=== PATIENT | male | born 1995 | race African-American/Black ===

== ENCOUNTER 2017-09-28 22:15 | Emergency (ER) | payer SELFPAY ==
[2017-09-28] MEDS ORDERED: ALBUTEROL 2.5 MG/3 ML NEB SOL ONE (22:43)
[2017-09-28] MEDS ORDERED: METHYLPREDNISOLONE 125 MG INJ ONE (22:43)
--- NOTE | 2017-09-28 23:41 | ER ---
Nurse's Notes [facility] Name: Chito Gibbs Age: 22 yrs Sex: Male : 1995 Arrival Date: 09/28/2017 Time: 22:16 Bed 8 Private MD: Diagnosis: Moderate persistent asthma with (acute) exacerbation Presentation: 09/28 22:20 Presenting complaint: EMS states: toned out for report of asthma attack. Transition of bb care: patient was not received from another setting of care. Onset of symptoms was September 28, 2017. Care prior to arrival: Medication(s) given: Albuterol Neb x 1, Atrovent Neb x 1. 22:20 Method Of Arrival: EMS: [facility] bb 22:20 Acuity: JIGAR 2 bb Historical: - Allergies: 22:21 No Known Allergies; bb - PMHx: 22:21 Asthma; bb - Immunization history:: Adult Immunizations up to date. - Social history:: Smoking status: unknown. Screenin:02 Abuse screen: Denies threats or abuse. Nutritional screening: No deficits noted. ea Tuberculosis screening: No symptoms or risk factors identified. Fall Risk None identified. Assessment: 22:33 General: Appears uncomfortable, Behavior is cooperative. Pain: Denies pain. Neuro: ea Level of Consciousness is awake, alert, obeys commands, Oriented to person, place, time, situation. Cardiovascular: Heart tones present Patient's skin is warm and dry. Respiratory: Airway is patent Respiratory effort is even, labored, Respiratory pattern is regular, symmetrical. Respiratory: Breath sounds with wheezes bilaterally. GI: No signs and/or symptoms were reported involving the gastrointestinal system. Derm: Skin is pink, warm \T\ dry. 23:04 Reassessment: Patient and/or family updated on plan of care and expected duration. Pain ea level reassessed. Patient is alert, oriented x 3, equal unlabored respirations, skin warm/dry/pink. Pt reports he is breathing easier. 23:57 Reassessment: Patient and/or family updated on plan of care and expected duration. Pain ea level reassessed. Patient is alert, oriented x 3, equal unlabored respirations, skin warm/dry/pink. Discharge instructions given to patient, verbalized understanding of instructions. Vital Signs: 22:33 BP 117 / 81; Pulse 60; Resp 22; Temp 98.0(O); Pulse Ox 99% on R/A; Pain 0/10; ea 23:57 BP 120 / 78; Pulse 62; Resp 18 S; Pulse Ox 99% on R/A; ea ED Course: 22:16 Patient arrived in ED. am2 22:20 Triage completed. brigitte 22:21 Luis Antonio Lopez PA is PHCP. jr8 22:21 Russ Almeida MD is Attending Physician. jr8 22:21 Arm band placed on Patient placed in an exam room, on a stretcher, on pulse oximetry. bb 22:30 Inserted saline lock: 20 gauge in right forearm, using aseptic technique. Blood ea collected. 22:32 Dalila Matthew, ELVI is Primary Nurse. ea 22:33 Patient has correct armband on for positive identification. Bed in low position. Call ea light in reach. Side rails up X 1. 23:58 No provider procedures requiring assistance completed. IV discontinued, intact, ea bleeding controlled, No redness/swelling at site. Pressure dressing applied. Administered Medications: 22:32 Drug: Albuterol 2.5 mg Route: Inhalation; ea 22:33 Drug: SOLU-Medrol 125 mg Route: IVP; Site: right forearm; ea 23:06 Follow up: Response: No adverse reaction ea 22:45 Drug: Albuterol 2.5 mg Route: Inhalation; ea 23:06 Drug: Albuterol 2.5 mg Route: Inhalation; ea 23:30 Follow up: Response: Marked relief of symptoms ea Outcome: 23:40 Discharge ordered by . jrDebbie 23:58 Discharged to home ambulatory. ea 23:58 Condition: improved 23:58 Discharge instructions given to patient, Instructed on discharge instructions, follow up and referral plans. medication usage, Demonstrated understanding of instructions, follow-up care, medications, Prescriptions given X 2. 23:59 Patient left the ED. ea Signatures: Lexus Haynes RN RN bb Roszak, Josh, PA PA jr8 Roula Novoa am2 Dalila Matthew RN RN ea
--- NOTE | 2017-09-28 23:41 | EDPHYS ---
Physician Documentation [facility] Name: Chito Gibbs Age: 22 yrs Sex: Male : 1995 Arrival Date: 09/28/2017 Time: 22:16 Bed 8 Private MD: ED Physician Russ Almeida HPI: 09/28 22:28 This 22 yrs old Black Male presents to ER via EMS with complaints of Asthma jr8 Exacerbation. 22:28 The patient presents to the emergency department with wheezing, Current therapy: jr8 albuterol inhaler. Onset: The symptoms/episode began/occurred acutely, today. Modifying factors: The symptoms are alleviated by nothing, the symptoms are aggravated by exertion, talking. Associated signs and symptoms: The patient has no apparent associated signs or symptoms. Severity of symptoms: At their worst the symptoms were moderate in the emergency department the symptoms are unchanged. The patient has experienced similar episodes in the past, a few times. The patient has not recently seen a physician. Patient stated that he has to use is inhaler about 2-3 times per day. History of asthma. On no other medications. Denies recent illness. Was unable to control shortness of breath with inhaler tonight . Historical: - Allergies: 22:21 No Known Allergies; bb - PMHx: 22:21 Asthma; bb - Immunization history:: Adult Immunizations up to date. - Social history:: Smoking status: unknown. ROS: 22:28 Eyes: Negative for injury, pain, redness, and discharge, ENT: Negative for injury, jr8 pain, and discharge, Neck: Negative for injury, pain, and swelling, Cardiovascular: Negative for chest pain, palpitations, and edema, Abdomen/GI: Negative for abdominal pain, nausea, vomiting, diarrhea, and constipation, Back: Negative for injury and pain, MS/Extremity: Negative for injury and deformity, Skin: Negative for injury, rash, and discoloration, Neuro: Negative for headache, weakness, numbness, tingling, and seizure. 22:28 Respiratory: Positive for cough, shortness of breath, wheezing. Exam: 22:28 Eyes: Pupils equal round and reactive to light, extra-ocular motions intact. Lids and jr8 lashes normal. Conjunctiva and sclera are non-icteric and not injected. Cornea within normal limits. Periorbital areas with no swelling, redness, or edema. ENT: Nares patent. No nasal discharge, no septal abnormalities noted. Tympanic membranes are normal and external auditory canals are clear. Oropharynx with no redness, swelling, or masses, exudates, or evidence of obstruction, uvula midline. Mucous membranes moist. Neck: Trachea midline, no thyromegaly or masses palpated, and no cervical lymphadenopathy. Supple, full range of motion without nuchal rigidity, or vertebral point tenderness. No Meningismus. Cardiovascular: Regular rate and rhythm with a normal S1 and S2. No gallops, murmurs, or rubs. Normal PMI, no JVD. No pulse deficits. Abdomen/GI: Soft, non-tender, with normal bowel sounds. No distension or tympany. No guarding or rebound. No evidence of tenderness throughout. Back: No spinal tenderness. No costovertebral tenderness. Full range of motion. Skin: Warm, dry with normal turgor. Normal color with no rashes, no lesions, and no evidence of cellulitis. MS/ Extremity: Pulses equal, no cyanosis. Neurovascular intact. Full, normal range of motion. Neuro: Awake and alert, GCS 15, oriented to person, place, time, and situation. Cranial nerves II-XII grossly intact. Motor strength 5/5 in all extremities. Sensory grossly intact. Cerebellar exam normal. Normal gait. 22:28 Respiratory: mild respiratory distress is noted, Respirations: tachypnea, that is mild, Breath sounds: wheezing: expiratory that is moderate, is heard diffusely. Vital Signs: 22:33 BP 117 / 81; Pulse 60; Resp 22; Temp 98.0(O); Pulse Ox 99% on R/A; Pain 0/10; ea 23:57 BP 120 / 78; Pulse 62; Resp 18 S; Pulse Ox 99% on R/A; ea MDM: 22:21 Patient medically screened. 8 23:40 Data reviewed: vital signs, nurses notes, and as a result, I will discharge patient. jr8 Data interpreted: Pulse oximetry: on room air is 99 %. Interpretation: normal. Counseling: I had a detailed discussion with the patient and/or guardian regarding: the historical points, exam findings, and any diagnostic results supporting the discharge/admit diagnosis, the need for outpatient follow up, a family practitioner, to return to the emergency department if symptoms worsen or persist or if there are any questions or concerns that arise at home. Response to treatment: the patient's symptoms have resolved after treatment. 09/28 22:21 Order name: IV; Complete Time: 22:33 jr8 Administered Medications: 22:32 Drug: Albuterol 2.5 mg Route: Inhalation; ea 22:33 Drug: SOLU-Medrol 125 mg Route: IVP; Site: right forearm; ea 23:06 Follow up: Response: No adverse reaction ea 22:45 Drug: Albuterol 2.5 mg Route: Inhalation; ea 23:06 Drug: Albuterol 2.5 mg Route: Inhalation; ea 23:30 Follow up: Response: Marked relief of symptoms linda Disposition: 09/29 00:20 Co-signature as Attending Physician, Russ Almeida MD. carol Disposition: 09/28/17 23:40 Discharged to Home. Impression: Moderate persistent asthma with (acute) exacerbation. - Condition is Stable. - Discharge Instructions: Asthma, Adult. - Prescriptions for Prednisone 20 mg Oral Tablet - take 1 tablet by ORAL route once daily for 5 days; 5 tablet. Albuterol Sulfate 90 mcg/actuation - inhale 1-2 puff by INHALATION route every 4-6 hours; 1 Inhaler. - Medication Reconciliation Form, Thank You Letter, Antibiotic Education, Prescription Opioid Use form. - Follow up: Private Physician; When: 5 - 6 days; Reason: Recheck today's complaints, Continuance of care, Re-evaluation by your physician. - Problem is new. - Symptoms have improved. Signatures: Russ Almeida MD MD pkl Ballard, Brenda, RN RN bb Roszak, Josh, PA PA jr8 Dalila Matthew RN RN ea
== END 2017-09-28 23:59 | disposition home or self-care (01) ==
LOC: ER 22:15
DX: J45.41 Moderate persistent asthma with (acute) exacerbation (principal)
CPT/HCPCS: 96374; 99284; J2930

== ENCOUNTER 2017-10-14 08:48 | Emergency (ER) | payer SELFPAY ==
[2017-10-14] MEDS ORDERED: MAGNES/ALUMIN/SIMET 30ML UCUP ONE (09:21)
[2017-10-14] MEDS ORDERED: ONDANSETRON 4 MG (ODT) TAB ONE (09:21)
[2017-10-14] MEDS ORDERED: LIDOCAINE VISCOUS 2% SOLN 15 ML UDC ONE (09:21)
[2017-10-14] MEDS ORDERED: DICYCLOMINE HCL 10 MG CAP ONE (09:40)
[2017-10-14 09:43] LABS: Absolute Lymphocytes (CBC) 1.3 K/uL (0.7-4.9); Absolute Monocytes 0.3 K/uL (0.1-1.3); Absolute Neutrophil 3.7 K/uL (1.8-8.0); Basophils % 0.2 % (0-1.3); Eosinophils % 1.3 % (0-4.4); Hematocrit 43.4 % (39.6-49.0); Lymphocytes % 24.6 % (15.3-44.8); MCH 30.6 pg (27.0-35.0); MCV 88.4 fL (80-100); MPV 9.9 fL (7.6-11.3); Monocytes % 5.3 % (3.3-12.3); RBC Red Blood Cell Count 4.91 M/uL (4.33-5.43)
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
[2017-10-14 10:14] LABS: Bicarbonate 33 mEq/L (21-31); Glucose Level 119 mg/dL (65-120); Potassium 3.6 mEq/L (3.6-5.0); Sodium Level 141 mEq/L (135-145)
[2017-10-14 10:17] LABS: ALT/SGPT 73 IU/L (10-60); AST/SGOT 46 IU/L (10-42); Albumin 4.2 g/dL (3.2-5.5); Alkaline Phosphatase 161 IU/L (42-121); BUN Blood Urea Nitrogen 19 mg/dL (6-20); Bilirubin Total 0.9 mg/dL (0.3-1.2); Protein, Total 7.3 g/dL (6.0-8.3)
--- NOTE | 2017-10-14 10:21 | ER ---
Nurse's Notes [facility] Name: Chito Gibbs Age: 22 yrs Sex: Male : 1995 Arrival Date: 10/14/2017 Time: 08:49 Bed 5 Private MD: Diagnosis: Nausea and vomiting;Marylou Calabrese Tear Presentation: 10/14 09:01 Presenting complaint: Patient states: has been vomiting "red and yellow stuff" for a iw week. Transition of care: patient was not received from another setting of care. Onset of symptoms was October 07, 2017. Initial Sepsis Screen: Does the patient meet any 2 criteria? No. Patient's initial sepsis screen is negative. Does the patient have a suspected source of infection? No. Patient initial sepsis screen negative. Care prior to arrival: None. 09:01 Method Of Arrival: Ambulatory iw 09: Acuity: JIGAR 3 iw Historical: - Allergies: 09:03 NKA; iw - Home Meds: 09:02 Albuterol Inhl [Active]; iw - PMHx: 09:02 Asthma; iw - PSHx: 09:03 None; iw - Immunization history:: Adult Immunizations. - Social history:: Smoking status: . Screenin:15 Abuse screen: Denies threats or abuse. Denies injuries from another. Nutritional sg screening: No deficits noted. Tuberculosis screening: No symptoms or risk factors identified. Never had TB. Fall Risk None identified. Assessment: 09:15 General: Appears in no apparent distress. comfortable, slender, well groomed, well sg developed, well nourished, Behavior is calm, cooperative, appropriate for age. Pain: Denies pain. Neuro: No deficits noted. Cardiovascular: Heart tones S1 S2 present Capillary refill is brisk in bilateral fingers Patient's skin is warm and dry. Chest pain is denied. Respiratory: Airway is patent Respiratory effort is even, unlabored, Respiratory pattern is regular, symmetrical, Breath sounds are clear bilaterally. GI: Abdomen is flat, non-distended, Bowel sounds present X 4 quads. Abd is soft and non tender X 4 quads. Reports nausea. : No signs and/or symptoms were reported regarding the genitourinary system. EENT: No signs and/or symptoms were reported regarding the EENT system. Derm: Skin is intact, is healthy with good turgor, Skin is dry, Skin is normal, Skin temperature is warm. Musculoskeletal: No signs and/or symptoms reported regarding the musculoskeletal system. 10:21 Reassessment: Patient appears in no apparent distress at this time. Patient and/or sg family updated on plan of care and expected duration. Pain level reassessed. Patient is alert, oriented x 3, equal unlabored respirations, skin warm/dry/pink. pt requesting OJ at this time, awaiting re evaluation by the provider prior to administering anything PO, pt stated understanding, will continue to monitor. 11:01 Reassessment: Patient appears in no apparent distress at this time. Patient and/or iw family updated on plan of care and expected duration. Pain level reassessed. Vital Signs: 09:03 BP 120 / 76; Pulse 84; Resp 16; Temp 98.2; Pulse Ox 97% on R/A; iw 10:19 BP 118 / 72; Pulse 72; Resp 16; Pulse Ox 98% on R/A; Pain 0/10; sg ED Course: 08:49 Patient arrived in ED. as 08:54 Antelmo Kelly MD is Attending Physician. ps1 09:02 Triage completed. iw 09:03 Arm band placed on. iw 09:14 Patient has correct armband on for positive identification. Placed in gown. Bed in low sg position. Call light in reach. Side rails up X2. Pulse ox on. NIBP on. Head of bed elevated. 09:19 Max Taylor, RN is Primary Nurse. sg 09:22 CMP Sent. ag 09:22 CBC with Diff Sent. ag 09:22 Initial lab(s) drawn, by me, sent to lab. Inserted saline lock: 20 gauge in right ag antecubital area, using aseptic technique. Blood collected. 09:29 Patient moved to radiology via wheelchair. 1 09:29 Abdomen Acute Series XRAY In Process Unspecified. EDMS 11:01 No provider procedures requiring assistance completed. IV discontinued, intact, iw bleeding controlled, No redness/swelling at site. Pressure dressing applied. Administered Medications: 09:20 Drug: Zofran 4 mg Route: PO; sg 11:02 Follow up: Response: No adverse reaction iw 09:20 Drug: GI Cocktail without - (Maalox Suspension 30 ml, Lidocaine Liquid 2 % 15 sg ml) Route: PO; 11:02 Follow up: Response: No adverse reaction iw 09:20 Drug: Bentyl 20 mg Route: PO; 11:01 Follow up: Response: No adverse reaction iw Outcome: 10:21 Discharge ordered by . ps1 11:01 Discharged to home ambulatory. iw 11:01 Condition: good 11:01 Discharge instructions given to patient, Instructed on discharge instructions, follow up and referral plans. medication usage, Demonstrated understanding of instructions, follow-up care, medications, Prescriptions given X 3. 11:02 Patient left the ED. iw Signatures: Dispatcher [employer] EDMax Ortiz, RN RN Catalina Escudero 1 Jessie Hanna Irene, RN RN Elmo, Antelmo Juarez MD MD ps1
--- NOTE | 2017-10-14 10:21 | EDPHYS ---
Physician Documentation [facility] Name: Chito Gibbs Age: 22 yrs Sex: Male : 1995 Arrival Date: 10/14/2017 Time: 08:49 Bed 5 Private MD: ED Physician Antelmo Kelly HPI: 10/14 09:02 This 22 yrs old Black Male presents to ER via Unassigned with complaints of Vomiting. ps1 09:02 The patient presents to the emergency department with nausea, vomiting, that is ps1 intermittent, described as blood streaked. Onset: The symptoms/episode began/occurred 2 week(s) ago. Possible causes: unknown. The symptoms are aggravated by nothing. The symptoms are alleviated by nothing. Associated signs and symptoms: The patient has no apparent associated signs or symptoms. Severity of symptoms: At their worst the symptoms were moderate in the emergency department the symptoms have resolved. The patient has experienced a previous episode. The patient has been recently seen at the [facility] Emergency Department, for similar complaints. hx of asthma, treated with albuterol. . Historical: - Allergies: 09:03 NKA; iw - Home Meds: 09:02 Albuterol Inhl [Active]; iw - PMHx: 09:02 Asthma; iw - PSHx: 09:03 None; iw - Immunization history:: Adult Immunizations. - Social history:: Smoking status: . ROS: 09:02 Constitutional: Negative for fever, chills, and weight loss, Eyes: Negative for injury, ps1 pain, redness, and discharge, Neck: Negative for injury, pain, and swelling, Cardiovascular: Negative for chest pain, palpitations, and edema. 09:02 Back: Negative for injury and pain, MS/Extremity: Negative for injury and deformity, Skin: Negative for injury, rash, and discoloration, Neuro: Negative for headache, weakness, numbness, tingling, and seizure. 09:02 Respiratory: Positive for intermittent asthma exacerbation. . 09:02 Abdomen/GI: Positive for nausea, vomiting. Exam: 09:02 Constitutional: This is a well developed, well nourished patient who is awake, alert, ps1 and in no acute distress. Head/Face: Normocephalic, atraumatic. Eyes: Pupils equal round and reactive to light, extra-ocular motions intact. Lids and lashes normal. Conjunctiva and sclera are non-icteric and not injected. Neck: Trachea midline, no thyromegaly or masses palpated, and no cervical lymphadenopathy. Supple, full range of motion without nuchal rigidity, or vertebral point tenderness. No Meningismus. Chest/axilla: Normal chest wall appearance and motion. Nontender with no deformity. No lesions are appreciated. Cardiovascular: Regular rate and rhythm. No gallops, murmurs, or rubs. Normal PMI, no JVD. No pulse deficits. Respiratory: Lungs have equal breath sounds bilaterally, clear to auscultation and percussion. No rales, rhonchi or wheezes noted. No increased work of breathing, no retractions or nasal flaring. Abdomen/GI: Soft, non-tender, with normal bowel sounds. No distension or tympany. No guarding or rebound. No evidence of tenderness throughout. MS/ Extremity: Pulses equal, no cyanosis. Neurovascular intact. Full, normal range of motion. Neuro: Awake and alert, GCS 15, oriented to person, place, time, and situation. Cranial nerves II-XII grossly intact. Sensory grossly intact. Psych: Awake, alert, with orientation to person, place and time. Behavior, mood, and affect are within normal limits. Vital Signs: 09:03 BP 120 / 76; Pulse 84; Resp 16; Temp 98.2; Pulse Ox 97% on R/A; iw 10:19 BP 118 / 72; Pulse 72; Resp 16; Pulse Ox 98% on R/A; Pain 0/10; sg MDM: 09:02 Data reviewed: vital signs, nurses notes. ps1 09:22 Patient medically screened. ps1 10/14 09:07 Order name: CBC with Diff; Complete Time: 10:13 ps1 10/14 09:07 Order name: CMP; Complete Time: 10:19 ps1 10/14 09:07 Order name: Abdomen Acute Series XRAY; Complete Time: 10:13 ps1 Administered Medications: 09:20 Drug: Zofran 4 mg Route: PO; sg 11:02 Follow up: Response: No adverse reaction iw 09:20 Drug: GI Cocktail without - (Maalox Suspension 30 ml, Lidocaine Liquid 2 % 15 sg ml) Route: PO; 11:02 Follow up: Response: No adverse reaction iw 09:20 Drug: Bentyl 20 mg Route: PO; 11:01 Follow up: Response: No adverse reaction iw Disposition: 10/14/17 10:21 Discharged to Home. Impression: Nausea and vomiting, Marylou Calabrese Tear. - Condition is Stable. - Discharge Instructions: Nausea and Vomiting, [id number]. - Prescriptions for Bentyl 10 mg Oral Capsule - take 1 capsule by ORAL route every 6 hours As needed; 40 capsule. Carafate 1 gram Oral Tablet - take 1 tablet by ORAL route 4 times per day take on an empty stomach, beginning on waking and last dose at bedtime; 100 tablet. Zofran 4 mg Oral Tablet - take 1 tablet by ORAL route every 12 hours As needed; 20 tablet. - Medication Reconciliation Form, Thank You Letter, Antibiotic Education, Prescription Opioid Use form. - Follow up: Private Physician; When: As needed; Reason: Recheck today's complaints, Re-evaluation by your physician. Follow up: Emergency Department; When: As needed; Reason: Worsening of condition. - Problem is an ongoing problem. - Symptoms have improved. Signatures: Dispatcher [employer] Max Lucero, RN Karly Trejo RN ELVI Antelmo Kelly MD MD ps1
== END 2017-10-14 11:02 | disposition home or self-care (01) ==
LOC: ER 08:48
DX: K22.6 Gastro-esophageal laceration-hemorrhage syndrome (principal); J45.909 Unspecified asthma, uncomplicated
CPT/HCPCS: 36415; 74022; 80053; 85025; 99284

== ENCOUNTER 2017-11-11 00:27 | Emergency (ER) | payer SELFPAY ==
[2017-11-11] MEDS ORDERED: IPRATROPIUM BROM 0.5MG/2.5ML ONE (00:39)
[2017-11-11] MEDS ORDERED: ALBUTEROL 2.5 MG/3 ML NEB SOL ONE (00:39)
[2017-11-11] MEDS ORDERED: METHYLPREDNISOLONE 125 MG INJ ONE (00:40)
[2017-11-11] MEDS ORDERED: NA CHLORIDE 0.9% 1,000 ML ONE (00:40)
[2017-11-11 01:11] LABS: Absolute Lymphocytes (CBC) 2.4 K/uL (0.7-4.9); Absolute Monocytes 0.7 K/uL (0.1-1.3); Absolute Neutrophil 4.3 K/uL (1.8-8.0); Basophils % 0.5 % (0-1.3); Eosinophils % 2.2 % (0-4.4); Hematocrit 39.2 % (39.6-49.0); Lymphocytes % 31.9 % (15.3-44.8); MCV 88.9 fL (80-100); Monocytes % 9.5 % (3.3-12.3); RBC Red Blood Cell Count 4.41 M/uL (4.33-5.43)
[2017-11-11 01:41] LABS: Glucose Level 115 mg/dL (65-120)
[2017-11-11 01:42] LABS: BUN Blood Urea Nitrogen 18 mg/dL (6-20)
[2017-11-11 01:43] LABS: Bicarbonate 32 mEq/L (21-31); Sodium Level 138 mEq/L (135-145)
[2017-11-11 01:47] LABS: Potassium 2.7 mEq/L (3.6-5.0)
[2017-11-11] MEDS ORDERED: MAGNESIUM SULFATE 1 gm IVPB 1 GM/100 ML BAG IV ONE (01:57)
[2017-11-11] MEDS ORDERED: POTASSIUM CL SA 10 MEQ TAB PO ONE (01:57)
[2017-11-11] MEDS ORDERED: KCL 20 MEQ/100 mL IVPB 20 MEQ/100 ML BAG IV ONE (01:58)
[2017-11-11] MEDS ORDERED: NA CHLORIDE 0.9% 250 ML ONE (02:05)
--- NOTE | 2017-11-11 04:54 | EDPHYS ---
Physician Documentation [facility] Name: Chito Gibbs Age: 22 yrs Sex: Male : 1995 Arrival Date: 11/11/2017 Time: 00:31 Bed 5 Private MD: ED Physician Bryant Hdz HPI: 11/11 00:42 This 22 yrs old Black Male presents to ER via EMS with complaints of Shortness Of snw Breath. 00:42 The patient has shortness of breath at rest. Onset: The symptoms/episode began/occurred snw suddenly. Duration: The symptoms are continuous. The patient's shortness of breath is aggravated by light activity. Associated signs and symptoms: Pertinent positives: non-productive cough. Severity of symptoms: At their worst the symptoms were moderate in the emergency department the symptoms are unchanged. The patient has experienced similar episodes in the past, shortness of breath, asthma exacerbations twice weekly. The patient has not recently seen a physician. ran out of inhaler. Historical: - Allergies: 00:38 NKA; lp1 - Home Meds: 00:38 Albuterol Inhl [Active]; lp1 - PMHx: 00:38 Asthma; lp1 - PSHx: 00:38 None; lp1 - Immunization history:: Adult Immunizations up to date. - Social history:: Smoking status: Patient/guardian denies using tobacco. ROS: 00:41 Constitutional: Negative for fever, chills, and weight loss, Eyes: Negative for injury, snw pain, redness, and discharge, ENT: Negative for injury, pain, and discharge, Neck: Negative for injury, pain, and swelling, Cardiovascular: Negative for chest pain, palpitations, and edema, Abdomen/GI: Negative for abdominal pain, nausea, vomiting, diarrhea, and constipation, Back: Negative for injury and pain, : Negative for injury, bleeding, discharge, and swelling, MS/Extremity: Negative for injury and deformity, Skin: Negative for injury, rash, and discoloration, Neuro: Negative for headache, weakness, numbness, tingling, and seizure. 00:41 Respiratory: Positive for cough, shortness of breath, at rest. wheezing. Exam: 00:41 Constitutional: This is a well developed, well nourished patient who is awake, alert, snw and in no acute distress. Head/Face: Normocephalic, atraumatic. Eyes: Pupils equal round and reactive to light, extra-ocular motions intact. Lids and lashes normal. Conjunctiva and sclera are non-icteric and not injected. Cornea within normal limits. Periorbital areas with no swelling, redness, or edema. ENT: Nares patent. No nasal discharge, no septal abnormalities noted. Tympanic membranes are normal and external auditory canals are clear. Oropharynx with no redness, swelling, or masses, exudates, or evidence of obstruction, uvula midline. Mucous membranes moist. Neck: Trachea midline, no thyromegaly or masses palpated, and no cervical lymphadenopathy. Supple, full range of motion without nuchal rigidity, or vertebral point tenderness. No Meningismus. Chest/axilla: Normal chest wall appearance and motion. Nontender with no deformity. No lesions are appreciated. Cardiovascular: Regular rate and rhythm with a normal S1 and S2. No gallops, murmurs, or rubs. Normal PMI, no JVD. No pulse deficits. Abdomen/GI: Soft, non-tender, with normal bowel sounds. No distension or tympany. No guarding or rebound. No evidence of tenderness throughout. Back: No spinal tenderness. No costovertebral tenderness. Full range of motion. Skin: Warm, dry with normal turgor. Normal color with no rashes, no lesions, and no evidence of cellulitis. MS/ Extremity: Pulses equal, no cyanosis. Neurovascular intact. Full, normal range of motion. Neuro: Awake and alert, GCS 15, oriented to person, place, time, and situation. Cranial nerves II-XII grossly intact. Motor strength 5/5 in all extremities. Sensory grossly intact. Cerebellar exam normal. Normal gait. 00:41 Respiratory: the patient does not display signs of respiratory distress, Respirations: prolonged exhalation, intercostal retractions, shallow respirations, tachypnea, Breath sounds: wheezing: that is moderate, is heard diffusely. Vital Signs: 00:36 BP 137 / 79; Pulse 75; Resp 18; Temp 97.9(O); Pulse Ox 100% on R/A; Weight 74.84 kg; lp1 Height 5 ft. 7 in. (170.18 cm); Pain 0/10; 01:51 BP 125 / 78; Pulse 72; Resp 20; Pulse Ox 100% on R/A; Pain 0/10; mg2 02:18 BP 114 / 72; Pulse 77; Resp 18; Pulse Ox 99% ; ea 03:03 BP 102 / 70; Pulse 72; Resp 18; Pulse Ox 98% ; Pain 0/10; mg2 04:07 BP 101 / 73; Pulse 62; Resp 18; Pulse Ox 99% ; mg2 05:03 BP 100 / 81; Pulse 53; Resp 18; Pulse Ox 100% on R/A; Pain 0/10; mg2 00:36 Body Mass Index 25.84 (74.84 kg, 170.18 cm) lp1 05:03 patient sleeping mg2 MDM: 00:41 Patient medically screened. snw 04:55 Data reviewed: vital signs, nurses notes. Data interpreted: Pulse oximetry: on room air snw is 99 %. Interpretation: normal. Counseling: I had a detailed discussion with the patient and/or guardian regarding: the historical points, exam findings, and any diagnostic results supporting the discharge/admit diagnosis, lab results, radiology results, the need for outpatient follow up, to return to the emergency department if symptoms worsen or persist or if there are any questions or concerns that arise at home. Special discussion: Based on the history and exam findings, there is no indication for further emergent testing or inpatient evaluation. I discussed with the patient/guardian the need to see the primary care provider for further evaluation of the symptoms. 11/11 00:34 Order name: CBC with Diff; Complete Time: 01:21 snw 11/11 00:34 Order name: Chem 7; Complete Time: 01:49 snw 11/11 00:34 Order name: Chest Pa And Lat (2 Views) XRAY snw 11/11 02:58 Order name: Potassium; Complete Time: 04:53 snw Administered Medications: 00:46 Drug: SOLU-Medrol 125 mg Route: IVP; Site: right antecubital; mg2 01:49 Follow up: Response: No adverse reaction; Other; breathing improved mg2 00:52 Drug: NS 0.9% 1000 ml Route: IV; Rate: 125 ml/hr; Site: right antecubital; mg2 00:53 Drug: Albuterol 2.5 mg Route: Inhalation; mg2 00:53 Drug: AtroVENT Aerosol 0.5 mg Route: Inhalation; mg2 02:18 Drug: Potassium Chloride 20 mEq Route: IV; Rate: calculated rate; Site: right mg2 antecubital; 02:18 Drug: Potassium Chloride 40 mEq Route: PO; mg2 04:06 Follow up: Response: No adverse reaction mg2 02:18 Drug: Magnesium Sulfate 1 grams Route: IVPB; Infused Over: 1 hrs; Site: right mg2 antecubital; 04:59 Drug: Potassium Effervescent Tablet 50 mEq Route: PO; mg2 05:11 Follow up: Response: No adverse reaction; Medication administered at discharge. mg2 Disposition: 11/11/17 04:54 Discharged to Home. Impression: Severe persistent asthma with (acute) exacerbation, Hypokalemia. - Condition is Stable. - Discharge Instructions: Asthma, Adult, Potassium Content of Foods, Asthma, Adult, [id number]. - Prescriptions for Pepcid 20 mg Oral Tablet - take 1 tablet by ORAL route every 12 hours for 5 days; 10 tablet. Prednisone 20 mg Oral Tablet - take 2 tablet by ORAL route once daily for 5 days; 10 tablet. Albuterol Sulfate 90 mcg/actuation - inhale 1-2 puff by INHALATION route every 4-6 hours; 1 Inhaler. - Medication Reconciliation Form, Thank You Letter, Antibiotic Education, Prescription Opioid Use form. - Follow up: Private Physician; When: 2 - 3 days; Reason: Recheck today's complaints, Continuance of care, Re-evaluation by your physician. Follow up: Emergency Department; When: As needed; Reason: Worsening of condition. Addendum: 11/28/2017 07:04 Co-signature as Attending Physician, Bryant Hdz MD I agree with the assessment and t w4 plan of care. Signatures: Dispatcher [employer] EDPA Alem Naidu, KUMAR-C FORDER OPERATOR-Csnw Jyoti English RN RN lp1 Bryant Hdz MD MD tw4 Samuel Franco RN RN mg2 Corrections: (The following items were deleted from the chart) 11/11 05:17 04:54 11/11/2017 04:54 Discharged to Home. Impression: Severe persistent asthma with mg2 (acute) exacerbation; Hypokalemia. Condition is Stable. Discharge Instructions: Asthma, Adult, Potassium Content of Foods, Asthma, Adult, [id number]. Prescriptions for Pepcid 20 mg Oral Tablet - take 1 tablet by ORAL route every 12 hours for 5 days; 10 tablet, Prednisone 20 mg Oral Tablet - take 2 tablet by ORAL route once daily for 5 days; 10 tablet, Albuterol Sulfate 90 mcg/actuation - inhale 1-2 puff by INHALATION route every 4-6 hours; 1 Inhaler. and Forms are Medication Reconciliation Form, Thank You Letter, Antibiotic Education, Prescription Opioid Use. Follow up: Private Physician; When: 2 - 3 days; Reason: Recheck today's complaints, Continuance of care, Re-evaluation by your physician. Follow up: Emergency Department; When: As needed; Reason: Worsening of condition. snw
--- NOTE | 2017-11-11 04:54 | ER ---
Nurse's Notes [facility] Name: Chito Gibbs Age: 22 yrs Sex: Male : 1995 Arrival Date: 11/11/2017 Time: 00:31 Bed 5 Private MD: Diagnosis: Severe persistent asthma with (acute) exacerbation;Hypokalemia Presentation: 11/11 00:34 Presenting complaint: EMS states: Patient was walking home when he became short of lp1 breath, states hx of asthma, ran out of nebulizer treatments yesterday, unsure of medication. Transition of care: patient was not received from another setting of care. Onset of symptoms was November 11, 2017. Initial Sepsis Screen: Does the patient meet any 2 criteria? No. Patient's initial sepsis screen is negative. Does the patient have a suspected source of infection? No. Patient's initial sepsis screen is negative. Care prior to arrival: Medication(s) given: Albuterol Neb x 1, Atrovent Neb x 1. 00:34 Method Of Arrival: EMS: [facility] lp1 00:34 Acuity: JIGAR 3 lp1 Triage Assessment: 00:38 General: Appears in no apparent distress. Behavior is calm. Pain: Denies pain. lp1 Respiratory: Reports shortness of breath Airway is patent Respiratory effort is even, Breath sounds with wheezes Onset: The symptoms/episode began/occurred just prior to arrival, the patient has mild shortness of breath. Historical: - Allergies: 00:38 NKA; lp1 - Home Meds: 00:38 Albuterol Inhl [Active]; lp1 - PMHx: 00:38 Asthma; lp1 - PSHx: 00:38 None; lp1 - Immunization history:: Adult Immunizations up to date. - Social history:: Smoking status: Patient/guardian denies using tobacco. Screenin:38 Abuse screen: Denies threats or abuse. Denies injuries from another. Nutritional lp1 screening: No deficits noted. Tuberculosis screening: No symptoms or risk factors identified. Fall Risk None identified. Assessment: 00:46 General: Appears with mild distress. Behavior is calm, cooperative. Pain: Denies pain. mg2 Neuro: Level of Consciousness is awake, alert, obeys commands, Oriented to person, place, time. Cardiovascular: Capillary refill < 3 seconds Patient's skin is warm and dry. Respiratory: Airway is patent Respiratory effort is even, wheezy Respiratory pattern is regular, symmetrical. GI: No signs and/or symptoms were reported involving the gastrointestinal system. : No signs and/or symptoms were reported regarding the genitourinary system. EENT: No signs and/or symptoms were reported regarding the EENT system. Derm: Skin is intact, Skin is pink, warm \T\ dry. normal. Musculoskeletal: Circulation, motion, and sensation intact. 00:49 Reassessment: patient sent for cxray. mg2 01:50 Reassessment: Patient appears in no apparent distress at this time. Patient and/or mg2 family updated on plan of care and expected duration. Pain level reassessed. Patient is alert, oriented x 3, equal unlabored respirations, skin warm/dry/pink. critical result of K-2.7 mmol relayed to the provider. 02:19 Reassessment: Patient appears in no apparent distress at this time. Patient and/or mg2 family updated on plan of care and expected duration. Pain level reassessed. Patient is alert, oriented x 3, equal unlabored respirations, skin warm/dry/pink. 04:08 Reassessment: Patient appears in no apparent distress at this time. Patient and/or mg2 family updated on plan of care and expected duration. Pain level reassessed. Patient is alert, oriented x 3, equal unlabored respirations, skin warm/dry/pink. Vital Signs: 00:36 BP 137 / 79; Pulse 75; Resp 18; Temp 97.9(O); Pulse Ox 100% on R/A; Weight 74.84 kg; lp1 Height 5 ft. 7 in. (170.18 cm); Pain 0/10; 01:51 BP 125 / 78; Pulse 72; Resp 20; Pulse Ox 100% on R/A; Pain 0/10; mg2 02:18 BP 114 / 72; Pulse 77; Resp 18; Pulse Ox 99% ; ea 03:03 BP 102 / 70; Pulse 72; Resp 18; Pulse Ox 98% ; Pain 0/10; mg2 04:07 BP 101 / 73; Pulse 62; Resp 18; Pulse Ox 99% ; mg2 05:03 BP 100 / 81; Pulse 53; Resp 18; Pulse Ox 100% on R/A; Pain 0/10; mg2 00:36 Body Mass Index 25.84 (74.84 kg, 170.18 cm) lp1 05:03 patient sleeping mg2 ED Course: 00:31 Patient arrived in ED. mg2 00:31 Alem Naidu F[facility]-C [facility]. snw 00:31 Bryant Hdz MD is Attending Physician. snw 00:35 Samuel Franco, ELVI is Primary Nurse. mg2 00:36 Triage completed. lp1 00:36 Arm band placed on left wrist. lp1 00:39 Patient has correct armband on for positive identification. Pulse ox on. NIBP on. lp1 00:48 Inserted saline lock: 20 gauge in right antecubital area, using aseptic technique. mg2 Blood collected. 00:54 Chest Pa And Lat (2 Views) XRAY In Process Unspecified. EDMS 05:17 No provider procedures requiring assistance completed. intact, bleeding controlled, No mg2 redness/swelling at site. Pressure dressing applied. Administered Medications: 00:46 Drug: SOLU-Medrol 125 mg Route: IVP; Site: right antecubital; mg2 01:49 Follow up: Response: No adverse reaction; Other; breathing improved mg2 00:52 Drug: NS 0.9% 1000 ml Route: IV; Rate: 125 ml/hr; Site: right antecubital; mg2 00:53 Drug: Albuterol 2.5 mg Route: Inhalation; mg2 00:53 Drug: AtroVENT Aerosol 0.5 mg Route: Inhalation; mg2 02:18 Drug: Potassium Chloride 20 mEq Route: IV; Rate: calculated rate; Site: right mg2 antecubital; 02:18 Drug: Potassium Chloride 40 mEq Route: PO; mg2 04:06 Follow up: Response: No adverse reaction mg2 02:18 Drug: Magnesium Sulfate 1 grams Route: IVPB; Infused Over: 1 hrs; Site: right mg2 antecubital; 04:59 Drug: Potassium Effervescent Tablet 50 mEq Route: PO; mg2 05:11 Follow up: Response: No adverse reaction; Medication administered at discharge. mg2 Intake: Outcome: 04:54 Discharge ordered by . snw 05:17 Discharged to home ambulatory. mg2 05:17 Condition: stable 05:17 Discharge instructions given to patient, Instructed on discharge instructions, follow up and referral plans. Demonstrated understanding of instructions, follow-up care, medications, Prescriptions given X 3. 05:17 Patient left the ED. mg2 Signatures: Dispatcher [employer] EDMS Alem Naidu, PEOPLESOFT ADMINISTRATOR-C PEOPLESOFT ADMINISTRATOR-Csnw Jyoti English RN RN lp1 Dalila Matthew RN ELVI ea Samuel Franco RN RN mg2 Corrections: (The following items were deleted from the chart) 00:34 00:31 Presenting complaint: EMS states: Shortness of breath began as patient was mg2 walking home, states hx of asthma, ran out of nebulizer treatments yesterday, unsure mg2 05:05 05:03 BP 100 / 81; Pulse 53bpm; Resp 18bpm; Pulse Ox 100% RA; Pain 0/10; mg2 mg2
[2017-11-11] MEDS ORDERED: POTASSIUM 25 MEQ EFFERV TAB ONE (04:56)
--- NOTE | 2017-11-11 07:44 | RAD REPORT ---
EXAM DESCRIPTION: RAD - Chest Pa And Lat (2 Views) - 11/11/2017 12:54 am CLINICAL HISTORY: Shortness of breath, asthma history COMPARISON: October 14September 09 TECHNIQUE: PA and lateral views of the chest were obtained. FINDINGS: The lungs are clear. No peribronchial thickening. Trachea is midline. No air trapping fin dings. Heart size is normal and central vasculature is within normal limits. No pleural effusion or pneumothorax seen. No acute bone finding. There is wedging of a vertebrae near the thoracolumbar james ction that is similar to the comparison. No aortic abnormality. No significant interval changes note d. IMPRESSION: No acute cardiopulmonary process.
== END 2017-11-11 05:17 | disposition home or self-care (01) ==
LOC: ER 00:27
DX: J45.51 Severe persistent asthma with (acute) exacerbation (principal); E87.6 Hypokalemia
CPT/HCPCS: 36415; 71046; 80048; 84132; 85025; 96374; 96375; 99285; J2930; J3475; J7030

== ENCOUNTER 2017-11-14 23:12 | Emergency (ER) | payer SELFPAY ==
[2017-11-15] MEDS ORDERED: IPRATROPIUM BROM 0.5MG/2.5ML ONE (00:01)
[2017-11-15] MEDS ORDERED: predniSONE 20 MG TAB ONE (00:01)
[2017-11-15] MEDS ORDERED: ALBUTEROL 2.5 MG/3 ML NEB SOL ONE (00:01)
[2017-11-15] MEDS ORDERED: AMOX/K CLAV 875 MG TAB ONE (00:02)
--- NOTE | 2017-11-15 00:43 | ER ---
Nurse's Notes [facility] Name: Chito Gibbs Age: 22 yrs Sex: Male : 1995 Arrival Date: 11/14/2017 Time: 23:13 Bed 20 Private MD: Diagnosis: Presentation: 11/14 23:13 Presenting complaint: EMS states: "Patient was walking when started to wheeze. Neb ao treatment with albuterol and Atrovent was given. Patient O2 was 98% before neb was given.". Transition of care: patient was not received from another setting of care. Onset of symptoms is unknown. Initial Sepsis Screen: Does the patient meet any 2 criteria? RR > 20 per min. No. Patient's initial sepsis screen is negative. Does the patient have a suspected source of infection? No. Patient's initial sepsis screen is negative. Care prior to arrival: None. Medication(s) given: Albuterol Neb x 1, Atrovent Neb x 1. 23:13 Method Of Arrival: EMS: [facility] ao 23:13 Acuity: JIGAR 3 ao Historical: - Allergies: 23:18 NKA; ao - Home Meds: 23:18 Albuterol Inhl [Active]; ao - PMHx: 23:18 Asthma; ao - PSHx: 23:18 None; ao - Immunization history:: Adult Immunizations unknown. - Social history:: Smoking status: Patient uses tobacco products, smokes one-half pack cigarettes per day, Patient/guardian denies using alcohol, street drugs. Screenin:13 Abuse screen: Denies threats or abuse. Denies injuries from another. Nutritional bp screening: No deficits noted. Tuberculosis screening: No symptoms or risk factors identified. Fall Risk None identified. Assessment: 23:14 General: Appears in no apparent distress. comfortable, Behavior is calm, cooperative, bp appropriate for age, 22YO BM CALLED EMS WHILE WALKING BETWEEN TOWNS, VS STABLE, SP02 >98 ON RA PRIOR TO TREATMENT. PT MAKING LARYNGEAL NOISES WHILE BREATHING, BUT NO WHEEZING NOTED. Pain: Denies pain. 23:30 Reassessment: NO FURTHER LARYNGEAL NOISES NOTED, VS STABLE ON MONITOR AND ROOM AIR. bp 11/15 00:41 Reassessment: PT ELOPE WITHOUT NOTIFYING STAFF. LAST SEEN IN STABLE CONDITION. bp Vital Signs: 11/14 23:16 BP 110 / 69; Pulse 67; Resp 30 S; Temp 98.2(O); Pulse Ox 98% on R/A; Weight 80.74 kg ao (R); Height 5 ft. 8 in. (172.72 cm) (R); 23:30 BP 106 / 61; Pulse 65; Resp 14; Pulse Ox 97% ; bp 23:16 Body Mass Index 27.06 (80.74 kg, 172.72 cm) ao ED Course: 23:13 Patient arrived in ED. ao 23:13 Sunny Diane, RN is Primary Nurse. bp 23:13 Patient has correct armband on for positive identification. Bed in low position. Call bp light in reach. Side rails up X2. 23:16 Triage completed. ao 23:18 Patient placed in an exam room, on a stretcher, on pulse oximetry, Patient notified of ao wait time. 23:44 Tramaine Watts PA is PHCP. cp 23:44 Tramaine Jeff MD is Attending Physician. cp 11/15 00:42 No provider procedures requiring assistance completed. Patient did not have IV access bp during this emergency room visit. Administered Medications: 00:06 Drug: Albuterol 2.5 mg Route: Inhalation; bp 00:06 Drug: AtroVENT Aerosol 0.5 mg Route: Inhalation; bp 00:06 Drug: predniSONE 50 mg Route: PO; bp 00:06 Follow up: Response: No adverse reaction bp 00:06 Drug: Augmentin 875 mg Route: PO; bp 00:07 Follow up: Response: No adverse reaction bp Outcome: 00:42 Eloped from patient exam room, after seeing physician Time discovered patient gone: October bp 2017 at 00:40 00:42 Condition: stable 00:43 Patient left the ED. bp Signatures: Tramaine Watts PA PA cp Jaylon Rendon RN RN ao Sunny Diane, RN RN bp Corrections: (The following items were deleted from the chart) 11/14 23:16 23:13 Care prior to arrival: None. ao ao
--- NOTE | 2017-11-16 00:43 | EDPHYS ---
Physician Documentation [facility] Name: Chito Gibbs Age: 22 yrs Sex: Male : 1995 Arrival Date: 11/14/2017 Time: 23:13 Bed 20 Private MD: ED Physician Tramaine Jeff HPI: 11/14 23:57 This 22 yrs old Black Male presents to ER via EMS with complaints of Asthma cp Exacerbation. 23:57 The patient presents to the emergency department with wheezing, Current therapy: cp albuterol inhaler, that began walking outside, the patient was reported to have chest tightness. Onset: The symptoms/episode began/occurred today. Associated signs and symptoms: Pertinent positives: drainage from right ear, Pertinent negatives: chest pain, fever, nausea, vomiting. Severity of symptoms: in the emergency department the symptoms are unchanged despite EMS interventions. Historical: - Allergies: 23:18 NKA; ao - Home Meds: 23:18 Albuterol Inhl [Active]; ao - PMHx: 23:18 Asthma; ao - PSHx: 23:18 None; ao - Immunization history:: Adult Immunizations unknown. - Social history:: Smoking status: Patient uses tobacco products, smokes one-half pack cigarettes per day, Patient/guardian denies using alcohol, street drugs. ROS: 11/15 00:05 Constitutional: Negative for body aches, chills, fever, poor PO intake. cp 00:05 Eyes: Negative for injury, pain, redness, and discharge. cp 00:05 ENT: Positive for drainage from ear(s), Negative for ear pain, sinus congestion, sinus pain, sore throat, difficulty swallowing, difficulty handling secretions. 00:05 Neck: Negative for pain with movement, pain at rest, stiffness, swollen nodes. 00:05 Cardiovascular: Negative for chest pain, edema, palpitations. 00:05 Respiratory: Positive for shortness of breath, Negative for cough. 00:05 Abdomen/GI: Negative for abdominal pain, nausea, vomiting, and diarrhea, constipation, black/tarry stool, rectal bleeding. 00:05 : Negative for urinary symptoms. 00:05 Skin: Negative for cellulitis, rash. 00:05 Neuro: Negative for altered mental status, headache, weakness. 00:05 All other systems are negative. Exam: 00:10 Constitutional: The patient appears in no acute distress, alert, awake, cp non-diaphoretic, non-toxic, well developed, well nourished. 00:10 Head/Face: Normocephalic, atraumatic. cp 00:10 Eyes: Periorbital structures: appear normal, Conjunctiva: normal, no exudate, no injection, Lids and lashes: appear normal, bilaterally. 00:10 ENT: External ear(s): are unremarkable, Ear canal(s): are normal, clear, TM's: bulging, on the right, erythema, that is moderate, on the right, Examination of the other ear shows no obvious abnormality, Nose: is normal, Mouth: is normal, Posterior pharynx: is normal, airway is patent, no erythema, no exudate. 00:10 Neck: ROM/movement: is normal, is supple, without pain, no range of motions limitations, no meningismus, no nuchal rigidity, Lymph nodes: no appreciated lymphadenopathy. 00:10 Chest/axilla: Inspection: normal, Palpation: is normal, no crepitus, no tenderness. 00:10 Cardiovascular: Rate: normal, Rhythm: regular, Edema: is not appreciated, JVD: is not appreciated. 00:10 Respiratory: the patient does not display signs of respiratory distress, Respirations: labored breathing, is not present, intercostal retractions, are absent, shallow respirations, are not present, splinting, is not noted, tachypnea, is not appreciated, Breath sounds: bronchial sounds, are not appreciated, stridor, is not appreciated, wheezing: that is mild, is heard in the left posterior lower lobe. 00:10 Abdomen/GI: Exam negative for discomfort, distension, guarding, Inspection: abdomen appears normal. 00:10 Skin: cellulitis, is not appreciated, no rash present. Vital Signs: 11/14 23:16 BP 110 / 69; Pulse 67; Resp 30 S; Temp 98.2(O); Pulse Ox 98% on R/A; Weight 80.74 kg ao (R); Height 5 ft. 8 in. (172.72 cm) (R); 23:30 BP 106 / 61; Pulse 65; Resp 14; Pulse Ox 97% ; bp 23:16 Body Mass Index 27.06 (80.74 kg, 172.72 cm) ao MDM: 23:44 Patient medically screened. cp 05/19 00:15 Differential diagnosis: acute asthma, exercise-induced asthma, reactive airway, URI, cp pneumonia, otitis media, ruptured tympanic membrane. Antibiotic administration: The patient is discharged and will get outpatient antibiotics, Amoxicillin. Administered Medications: 00:06 Drug: Albuterol 2.5 mg Route: Inhalation; bp 00:06 Drug: AtroVENT Aerosol 0.5 mg Route: Inhalation; bp 00:06 Drug: predniSONE 50 mg Route: PO; bp 00:06 Follow up: Response: No adverse reaction bp 00:06 Drug: Augmentin 875 mg Route: PO; bp 00:07 Follow up: Response: No adverse reaction bp Disposition: 11/15/17 00:43 Patient left the facility after being seen by provider. - Patient left due to unknown. Addendum: 11/17/2017 07:47 Co-signature as Attending Physician, Tramaine Jeff MD I agree with the assessment and c shen plan of care. Signatures: Tramaine Jeff MD MD cha Page, Corey, PA PA cp Jaylon Rendon, RN RN Sunny Santos, ELVI RN bp
== END 2017-11-15 00:43 | disposition left against medical advice (07) ==
LOC: ER 23:12
DX: J45.901 Unspecified asthma with (acute) exacerbation (principal); F17.210 Nicotine dependence, cigarettes, uncomplicated
CPT/HCPCS: 99284; J7512

== ENCOUNTER 2017-11-25 22:37 | Emergency (ER) | payer SELFPAY ==
--- NOTE | 2017-11-25 22:55 | ER ---
Nurse's Notes [facility] Name: Chito Gibbs Age: 22 yrs Sex: Male : 1995 Arrival Date: 11/25/2017 Time: 22:46 Bed 16 Private MD: Diagnosis: Mild intermittent asthma with (acute) exacerbation Presentation: 11/25 22:47 Presenting complaint: EMS states: they were toned out for report of pt having shortness bb of breath pt has asthma and was walking when he became short of breath. Transition of care: patient was not received from another setting of care. Onset of symptoms was November 25, 2017. Risk Assessment: Do you want to hurt yourself or someone else? Patient reports no desire to harm self or others. Initial Sepsis Screen: Does the patient meet any 2 criteria? No. Patient's initial sepsis screen is negative. Does the patient have a suspected source of infection? No. Patient's initial sepsis screen is negative. Care prior to arrival: Medication(s) given: Albuterol Neb x 2, Atrovent Neb x 1. 22:47 Method Of Arrival: EMS: [facility] bb 22:47 Acuity: JIGAR 3 bb Triage Assessment: 22:49 General: Appears in no apparent distress. slender, Behavior is calm, cooperative. Pain: bb Denies pain. Neuro: Level of Consciousness is awake, alert, obeys commands, Oriented to person, place, time, situation. Cardiovascular: Heart tones S1 S2 present Capillary refill < 3 seconds Patient's skin is warm and dry. Respiratory: Reports shortness of breath Airway is patent Respiratory effort is even, unlabored, Breath sounds with wheezes bilaterally. Onset: The symptoms/episode began/occurred just prior to arrival, the patient has mild shortness of breath. GI: No signs and/or symptoms were reported involving the gastrointestinal system. Derm: Skin is dry, Skin is normal, Skin temperature is warm. Musculoskeletal: Circulation, motion, and sensation intact. Historical: - Allergies: 22:49 NKA; bb - Home Meds: 22:49 Albuterol Inhl [Active]; bb - PMHx: 22:49 Asthma; bb - PSHx: 22:49 None; bb - Immunization history:: Adult Immunizations up to date. - Social history:: Smoking status: Patient/guardian denies using tobacco, Patient/guardian denies using alcohol, street drugs. - Ebola Screening: : No symptoms or risks identified at this time. Screenin:52 Abuse screen: Denies threats or abuse. Nutritional screening: No deficits noted. bb Tuberculosis screening: No symptoms or risk factors identified. Fall Risk None identified. Assessment: 22:52 Reassessment: No changes from previously documented assessment. see triage assessment. bb Viry NG at bedside for evaluation of pt. 22:54 Cardiovascular: Rhythm is sinus tachycardia. bb 23:06 Reassessment: pt eloped with IV intact, Viry NG notified, Ezio Proctor RN notified. bb Vital Signs: 22:49 BP 121 / 88; Pulse 103; Resp 20 S; Temp 98.4(O); Pulse Ox 97% on R/A; Weight 79.38 kg bb (R); Height 5 ft. 7 in. (170.18 cm) (R); Pain 0/10; 22:49 Body Mass Index 27.41 (79.38 kg, 170.18 cm) bb ED Course: 22:46 Patient arrived in ED. bb 22:46 Lexus Haynes, RN is Primary Nurse. bb 22:48 Triage completed. bb 22:48 Luis Antonio Lopez PA is PHCP. jr8 22:49 Arm band placed on Patient placed in an exam room, on a stretcher, on pulse oximetry. bb 22:52 Bolivar Waters MD is Attending Physician. jr8 22:52 Patient has correct armband on for positive identification. Placed in gown. Bed in low bb position. Call light in reach. Side rails up X 1. Pulse ox on. NIBP on. 22:52 No provider procedures requiring assistance completed. Maintain EMS IV. Dressing bb intact. Site clean \T\ dry. Gauge \T\ site: 20g L AC. 23:50 Patient left without discharge instructions. Attempted to contact several times, pt patient answers phone and does not speak. [place] [employer] notified that patient left with IV and PD will do welfare check. Administered Medications: No medications were administered Outcome: 22:54 Discharge ordered by . jr8 23:42 Patient left the ED. bb Signatures: Sameera Proctor RN RN pt Lexus Haynes RN RN bb Roszak, Luis Antonio, PA PA jr8
--- NOTE | 2017-11-25 22:55 | EDPHYS ---
Physician Documentation [facility] Name: Chito Gibbs Age: 22 yrs Sex: Male : 1995 Arrival Date: 11/25/2017 Time: 22:46 Bed 16 Private MD: ED Physician Bolivar Waters HPI: 11/25 22:52 This 22 yrs old Black Male presents to ER via EMS with complaints of Shortness Of jr8 Breath. 22:52 The patient has shortness of breath while walking. Onset: The symptoms/episode jr8 began/occurred acutely, just prior to arrival, today. Duration: The symptoms are continuous. The patient's shortness of breath is aggravated by walking. Associated signs and symptoms: The patient has no apparent associated signs or symptoms. Severity of symptoms: At their worst the symptoms were moderate in the emergency department the symptoms have resolved. The patient has experienced similar episodes in the past, a few times. The patient has not recently seen a physician. Patient brought in by EMS after calling for asthma attack. Was administered breathing treatment and brought to hospital. Patient stated that it now has resolved after treatment and wants to go home . Historical: - Allergies: 22:49 NKA; bb - Home Meds: 22:49 Albuterol Inhl [Active]; bb - PMHx: 22:49 Asthma; bb - PSHx: 22:49 None; bb - Immunization history:: Adult Immunizations up to date. - Social history:: Smoking status: Patient/guardian denies using tobacco, Patient/guardian denies using alcohol, street drugs. - Ebola Screening: : No symptoms or risks identified at this time. ROS: 22:52 Eyes: Negative for injury, pain, redness, and discharge, ENT: Negative for injury, jr8 pain, and discharge, Neck: Negative for injury, pain, and swelling, Cardiovascular: Negative for chest pain, palpitations, and edema, Abdomen/GI: Negative for abdominal pain, nausea, vomiting, diarrhea, and constipation, Back: Negative for injury and pain, MS/Extremity: Negative for injury and deformity, Skin: Negative for injury, rash, and discoloration, Neuro: Negative for headache, weakness, numbness, tingling, and seizure. 22:52 Respiratory: Positive for shortness of breath, wheezing, Negative for cough, hemoptysis, orthopnea, pleurisy. Exam: 22:52 Eyes: Pupils equal round and reactive to light, extra-ocular motions intact. Lids and jr8 lashes normal. Conjunctiva and sclera are non-icteric and not injected. Cornea within normal limits. Periorbital areas with no swelling, redness, or edema. ENT: Nares patent. No nasal discharge, no septal abnormalities noted. Tympanic membranes are normal and external auditory canals are clear. Oropharynx with no redness, swelling, or masses, exudates, or evidence of obstruction, uvula midline. Mucous membranes moist. Neck: Trachea midline, no thyromegaly or masses palpated, and no cervical lymphadenopathy. Supple, full range of motion without nuchal rigidity, or vertebral point tenderness. No Meningismus. Cardiovascular: Regular rate and rhythm with a normal S1 and S2. No gallops, murmurs, or rubs. Normal PMI, no JVD. No pulse deficits. Respiratory: Lungs have equal breath sounds bilaterally, clear to auscultation and percussion. No rales, rhonchi or wheezes noted. No increased work of breathing, no retractions or nasal flaring. Abdomen/GI: Soft, non-tender, with normal bowel sounds. No distension or tympany. No guarding or rebound. No evidence of tenderness throughout. Back: No spinal tenderness. No costovertebral tenderness. Full range of motion. Skin: Warm, dry with normal turgor. Normal color with no rashes, no lesions, and no evidence of cellulitis. MS/ Extremity: Pulses equal, no cyanosis. Neurovascular intact. Full, normal range of motion. Neuro: Awake and alert, GCS 15, oriented to person, place, time, and situation. Cranial nerves II-XII grossly intact. Motor strength 5/5 in all extremities. Sensory grossly intact. Cerebellar exam normal. Normal gait. Vital Signs: 22:49 BP 121 / 88; Pulse 103; Resp 20 S; Temp 98.4(O); Pulse Ox 97% on R/A; Weight 79.38 kg bb (R); Height 5 ft. 7 in. (170.18 cm) (R); Pain 0/10; 22:49 Body Mass Index 27.41 (79.38 kg, 170.18 cm) bb MDM: 22:52 Patient medically screened. jr8 22:52 Data reviewed: vital signs, nurses notes, and as a result, I will discharge patient. jr8 Data interpreted: Pulse oximetry: on room air is 97 %. Interpretation: normal. Counseling: I had a detailed discussion with the patient and/or guardian regarding: the historical points, exam findings, and any diagnostic results supporting the discharge/admit diagnosis, the need for outpatient follow up, a family practitioner, to return to the emergency department if symptoms worsen or persist or if there are any questions or concerns that arise at home. ED course: Patient refuses IV steroid or oral steroids for home. Has albuterol inhaler at home. Will continue to use that. To come back if worse . Administered Medications: No medications were administered Disposition: 11/26 06:47 Co-signature as Attending Physician, Bolivar Waters MD. rn Disposition: 11/25/17 22:54 Discharged to Home. Impression: Mild intermittent asthma with (acute) exacerbation. - Condition is Stable. - Discharge Instructions: Asthma, Adult. - Medication Reconciliation Form, Thank You Letter, Antibiotic Education, Prescription Opioid Use form. - Follow up: Private Physician; When: 2 - 3 days; Reason: Recheck today's complaints, Continuance of care, Re-evaluation by your physician. - Problem is new. - Symptoms are resolved. Signatures: Lexus Haynes RN RN bb Nieto, Roman, MD MD rn Roszak, Josh, PA PA jr8 Corrections: (The following items were deleted from the chart) 11/25 23:42 22:54 11/25/2017 22:54 Discharged to Home. Impression: Mild intermittent asthma with bb (acute) exacerbation. Condition is Stable. Forms are Medication Reconciliation Form, Thank You Letter, Antibiotic Education, Prescription Opioid Use. Follow up: Private Physician; When: 2 - 3 days; Reason: Recheck today's complaints, Continuance of care, Re-evaluation by your physician. Problem is new. Symptoms are resolved. jr8
== END 2017-11-25 23:42 | disposition home or self-care (01) ==
LOC: ER 22:37
DX: J45.21 Mild intermittent asthma with (acute) exacerbation (principal)
CPT/HCPCS: 99284

== ENCOUNTER 2017-12-12 16:09 | Emergency (ER) | payer SELFPAY ==
--- NOTE | 2017-12-12 16:29 | EDPHYS ---
Physician Documentation [facility] Name: Chito Gibbs Age: 22 yrs Sex: Male : 1995 Arrival Date: 12/12/2017 Time: 16:15 Bed 9 Private MD: ED Physician Harjit Flores Historical: - Allergies: 12/12 16:18 NKA; ss - Home Meds: 16:18 None [Active]; ss - PMHx: 16:18 Asthma; ss - PSHx: 16:18 None; ss - Immunization history:: Adult Immunizations up to date. - Social history:: Smoking status: Patient/guardian denies using tobacco, Patient uses street drugs, marijuana. - Ebola Screening: : Patient denies exposure to infectious person Patient denies travel to an Ebola-affected area in the 21 days before illness onset. Vital Signs: 16:18 BP 100 / 68; Pulse 91; Resp 16; Temp 98.3(O); Pulse Ox 97% on R/A; Weight 71.21 kg; ss Height 5 ft. 7 in. (170.18 cm); Pain 0/10; 16:18 Body Mass Index 24.59 (71.21 kg, 170.18 cm) ss MDM: 16:28 Medical screening is not applicable. pm1 16:29 ED course: Patient left before being evaluated by me. pm1 Administered Medications: No medications were administered Disposition: 12/12/17 16:28 Patient left the facility before being seen by provider. Preliminary diagnosis is Cannabis abuse. - Patient left due to (see nurse's notes). - Condition is Undetermined. - Problem is new. - Symptoms are unchanged. Addendum: 12/16/2017 07:03 Co-signature as Attending Physician, Harjit Flores MD I agree with the assessment and k dr plan of care. Signatures: Harjit Flores MD MD [facility] Elvira Correia RN RN ss Mendoza Strong, ALEXIS COOK SUPERVISOR pm1 Corrections: (The following items were deleted from the chart) 12/12 16:30 16:28 12/12/2017 16:28 Patient left the facility before being seen by provider. ss Preliminary diagnosis is Cannabis abuse. Reason stated they are leaving due to (see nurse's notes). Condition is Undetermined. Problem is new. Symptoms are unchanged. pm1
--- NOTE | 2017-12-12 16:29 | ER ---
Nurse's Notes [facility] Name: Chito Gibbs Age: 22 yrs Sex: Male : 1995 Arrival Date: 12/12/2017 Time: 16:15 Bed 9 Private MD: Diagnosis: Cannabis abuse Presentation: 12/12 16:16 Presenting complaint: EMS states: found on side of road, drowsy, vomit x2. Pt ss reportedly smoked marijuana and was outside. After 750 mL IV fluid, pt reports he is feeling better, just thirsty. Denies pain. Transition of care: patient was not received from another setting of care. Onset of symptoms was December 12, 2017. Risk Assessment: Do you want to hurt yourself or someone else? Patient reports no desire to harm self or others. Initial Sepsis Screen: Does the patient meet any 2 criteria? No. Patient's initial sepsis screen is negative. Does the patient have a suspected source of infection? No. Patient's initial sepsis screen is negative. Care prior to arrival: Medication(s) given: Normal saline infusion, 750 mL IV initiated. 18 GA, in the right antecubital area. 16:16 Method Of Arrival: EMS: [facility] ss 16:16 Acuity: JIGAR 3 ss Triage Assessment: 16:16 General: Appears in no apparent distress. comfortable, Behavior is calm, cooperative. ss Pain: Denies pain. Neuro: Level of Consciousness is awake, alert, Oriented to person, place, time, situation. Respiratory: Airway is patent Respiratory effort is even, unlabored, Respiratory pattern is regular, symmetrical. Derm: Skin is intact, is healthy with good turgor, Skin is dry, Skin is pink, warm \T\ dry. normal. Historical: - Allergies: 16:18 NKA; ss - Home Meds: 16:18 None [Active]; ss - PMHx: 16:18 Asthma; ss - PSHx: 16:18 None; ss - Immunization history:: Adult Immunizations up to date. - Social history:: Smoking status: Patient/guardian denies using tobacco, Patient uses street drugs, marijuana. - Ebola Screening: : Patient denies exposure to infectious person Patient denies travel to an Ebola-affected area in the 21 days before illness onset. Vital Signs: 16:18 BP 100 / 68; Pulse 91; Resp 16; Temp 98.3(O); Pulse Ox 97% on R/A; Weight 71.21 kg; ss Height 5 ft. 7 in. (170.18 cm); Pain 0/10; 16:18 Body Mass Index 24.59 (71.21 kg, 170.18 cm) ED Course: 16:15 Patient arrived in ED. 16:18 Triage completed. 16:18 Arm band placed on right wrist. 16:26 Mendoza Strong NP is PHCP. pm1 16:26 Harjit Flores MD is Attending Physician. pm1 16:27 No provider procedures requiring assistance completed. patient left prior to having IV ss dc'd. Pt is nowhere to be found. Administered Medications: No medications were administered Outcome: 16:27 Eloped from patient exam room, before seeing physician 16:27 Condition: stable 16:30 Patient left the ED. Signatures: Elvira Correia RN RN Mendoza Strong NP DRY SANDER pm1
== END 2017-12-12 16:30 | disposition left against medical advice (07) ==
LOC: ER 16:09
DX: Z53.21 Procedure and treatment not carried out due to patient leaving prior to being seen by health care provider (principal)
CPT/HCPCS: 99282

== ENCOUNTER 2017-12-28 23:26 | Emergency (ER) | payer SELFPAY ==
[2017-12-29] MEDS ORDERED: AZITHROMYCIN 250 MG TAB ONE (00:04)
[2017-12-29] MEDS ORDERED: ALBUTEROL 2.5 MG/3 ML NEB SOL ONE (00:04)
[2017-12-29] MEDS ORDERED: IPRATROPIUM BROM 0.5MG/2.5ML ONE (00:05)
[2017-12-29] MEDS ORDERED: predniSONE 20 MG TAB ONE (00:05)
--- NOTE | 2017-12-29 00:13 | EDPHYS ---
Physician Documentation [facility] Name: Chito Gibbs Age: 22 yrs Sex: Male : 1995 Arrival Date: 12/28/2017 Time: 23:31 Bed 25 Private MD: ED Physician Tramaine Jeff HPI: 12/28 23:49 This 22 yrs old Black Male presents to ER via EMS with complaints of Shortness Of dali Breath. 23:49 The patient has shortness of breath with light activity. Onset: The symptoms/episode dali began/occurred 2 day(s) ago. Duration: The symptoms are continuous, and are unchanged since they started. The patient's shortness of breath has no apparent modifying factors. Associated signs and symptoms: Pertinent positives: non-productive cough, Pertinent negatives: chest pain. Severity of symptoms: At their worst the symptoms were mild in the emergency department the symptoms are unchanged. The patient has not experienced similar symptoms in the past. Historical: - Allergies: 23:33 NKA; bp - Home Meds: 23:33 None [Active]; bp - PMHx: 23:33 None; bp - Immunization history:: Adult Immunizations up to date. - Social history:: Smoking status: Patient uses tobacco products, denies chronic smoking, but will smoke occasionally, Patient uses street drugs, marijuana. - Ebola Screening: : Patient negative for fever greater than or equal to 101.5 degrees Fahrenheit, and additional compatible Ebola Virus Disease symptoms Patient denies exposure to infectious person Patient denies travel to an Ebola-affected area in the 21 days before illness onset No symptoms or risks identified at this time. - Family history:: not pertinent. ROS: 23:49 Constitutional: Negative for fever, chills, and weight loss, Eyes: Negative for injury, dali pain, redness, and discharge, ENT: Negative for injury, pain, and discharge, Neck: Negative for injury, pain, and swelling, Cardiovascular: Negative for chest pain, palpitations, and edema, Abdomen/GI: Negative for abdominal pain, nausea, vomiting, diarrhea, and constipation, Back: Negative for injury and pain, : Negative for injury, bleeding, discharge, and swelling, MS/Extremity: Negative for injury and deformity, Skin: Negative for injury, rash, and discoloration, Neuro: Negative for headache, weakness, numbness, tingling, and seizure, Psych: Negative for depression, anxiety, suicide ideation, homicidal ideation, and hallucinations, Allergy/Immunology: Negative for hives, rash, and allergies, Endocrine: Negative for neck swelling, polydipsia, polyuria, polyphagia, and marked weight changes, Hematologic/Lymphatic: Negative for swollen nodes, abnormal bleeding, and unusual bruising. 23:49 Respiratory: Positive for cough, wheezing, expiratory. Exam: 23:49 Constitutional: This is a well developed, well nourished patient who is awake, alert, dali and in no acute distress. Head/Face: Normocephalic, atraumatic. Eyes: Pupils equal round and reactive to light, extra-ocular motions intact. Lids and lashes normal. Conjunctiva and sclera are non-icteric and not injected. Cornea within normal limits. Periorbital areas with no swelling, redness, or edema. ENT: Nares patent. No nasal discharge, no septal abnormalities noted. Tympanic membranes are normal and external auditory canals are clear. Oropharynx with no redness, swelling, or masses, exudates, or evidence of obstruction, uvula midline. Mucous membranes moist. Neck: Trachea midline, no thyromegaly or masses palpated, and no cervical lymphadenopathy. Supple, full range of motion without nuchal rigidity, or vertebral point tenderness. No Meningismus. Chest/axilla: Normal chest wall appearance and motion. Nontender with no deformity. No lesions are appreciated. Cardiovascular: Regular rate and rhythm with a normal S1 and S2. No gallops, murmurs, or rubs. Normal PMI, no JVD. No pulse deficits. Respiratory: Lungs have equal breath sounds bilaterally, clear to auscultation and percussion. No rales, rhonchi or wheezes noted. No increased work of breathing, no retractions or nasal flaring. Back: No spinal tenderness. No costovertebral tenderness. Full range of motion. Male : Normal genitalia with no discharge or lesions. Skin: Warm, dry with normal turgor. Normal color with no rashes, no lesions, and no evidence of cellulitis. MS/ Extremity: Pulses equal, no cyanosis. Neurovascular intact. Full, normal range of motion. Neuro: Awake and alert, GCS 15, oriented to person, place, time, and situation. Cranial nerves II-XII grossly intact. Motor strength 5/5 in all extremities. Sensory grossly intact. Cerebellar exam normal. Normal gait. Psych: Awake, alert, with orientation to person, place and time. Behavior, mood, and affect are within normal limits. 23:49 Abdomen/GI: Inspection: abdomen appears normal, Bowel sounds: normal, Palpation: abdomen is soft and non-tender. Vital Signs: 23:33 BP 111 / 77; Pulse 66; Resp 16; Temp 97.9; Pulse Ox 99% ; Weight 77.11 kg; bp MDM: 23:44 Patient medically screened. [facility] 23:50 Data reviewed: vital signs, nurses notes, radiologic studies. [facility] 12/28 23:49 Order name: Chest Pa And Lat (2 Views) XRAY [facility] Administered Medications: 12/29 00:11 Not Given (Patient Eloped): Albuterol - atroVENT (3:1) (2.5 mg - 0.5 mg) 3 ml Nebulizer fc once 00:11 Not Given (Patient Eloped): predniSONE 60 mg PO once fc 00:11 Not Given (Patient Eloped): Zithromax 500 mg PO once fc Disposition: 12/29/17 00:12 Discharged to Home. Impression: Dyspnea, Asthma, Cough. - Condition is Stable. - Discharge Instructions: Asthma, Adult, Cool Mist Vaporizers, Asthma, Adult, [id number], Cough, Adult, [id number]-Ashq, Cough, Adult. - Prescriptions for Albuterol Sulfate 2.5 mg /3 mL (0.083 %) Inhalation Solution for Nebulization - inhale 1 unit by NEBULIZATION route every 8 hours As needed; 1 box. Zithromax Z- Chris 250 mg Oral Tablet - take 1 tablet by ORAL route as directed for 5 days Day 1 - take two (2) tablets one time. Day 2, 3, 4 , 5 take one (1) tablet once daily.; 6 tablet. Prednisone 20 mg Oral Tablet - take 2 tablet by ORAL route once daily for 5 days; 10 tablet. Albuterol Sulfate 90 mcg/actuation - inhale 1-2 puff by INHALATION route every 4-6 hours; 1 Inhaler. - Medication Reconciliation Form, Thank You Letter, Antibiotic Education, Prescription Opioid Use form. - Follow up: Private Physician; When: 2 - 3 days; Reason: Recheck today's complaints, Continuance of care, Re-evaluation by your physician. - Problem is new. - Symptoms have improved. Signatures: Dispatcher [employer] EDMS Tramaine Jeff MD MD cha Peltier, Brian, RN RN bp Kvng Serrano, ELVI RN mb3 Dee Plaza RN Corrections: (The following items were deleted from the chart) 00:27 00:12 12/29/2017 00:12 Discharged to Home. Impression: Dyspnea; Asthma; Cough. mb3 Condition is Stable. Discharge Instructions: Asthma, Adult, Cool Mist Vaporizers, Asthma, Adult, [id number]-[id number], Cough, Adult, [id number], Cough, Adult. Prescriptions for Albuterol Sulfate 2.5 mg /3 mL (0.083 %) Inhalation Solution for Nebulization - inhale 1 unit by NEBULIZATION route every 8 hours As needed; 1 box, Zithromax Z-Chris 250 mg Oral Tablet - take 1 tablet by ORAL route as directed for 5 days Day 1 - take two (2) tablets one time. Day 2, 3, 4 , 5 take one (1) tablet once daily.; 6 tablet, Prednisone 20 mg Oral Tablet - take 2 tablet by ORAL route once daily for 5 days; 10 tablet, Albuterol Sulfate 90 mcg/actuation - inhale 1-2 puff by INHALATION route every 4-6 hours; 1 Inhaler. and Forms are Medication Reconciliation Form, Thank You Letter, Antibiotic Education, Prescription Opioid Use. Follow up: Private Physician; When: 2 - 3 days; Reason: Recheck today's complaints, Continuance of care, Re-evaluation by your physician. Problem is new. Symptoms have improved. dali
--- NOTE | 2017-12-29 00:13 | ER ---
Nurse's Notes [facility] Name: Chito Gibbs Age: 22 yrs Sex: Male : 1995 Arrival Date: 12/28/2017 Time: 23:31 Bed 25 Private MD: Diagnosis: Dyspnea;Asthma;Cough Presentation: 12/28 23:31 Presenting complaint: EMS states: HE CALLED FROM [place] AND SAID HE WAS HAVING AN bp ASTHMA ATTACK. Transition of care: patient was not received from another setting of care. Onset of symptoms is unknown. Risk Assessment: Do you want to hurt yourself or someone else? Patient reports no desire to harm self or others. Initial Sepsis Screen: Does the patient meet any 2 criteria? No. Patient's initial sepsis screen is negative. Does the patient have a suspected source of infection? No. Patient's initial sepsis screen is negative. Care prior to arrival: Medication(s) given: Albuterol Neb x 1, Atrovent Neb x 1. 23:31 Method Of Arrival: EMS: [facility] bp 23:31 Acuity: JIGAR 4 bp Triage Assessment: 23:33 General: Appears in no apparent distress. comfortable, Behavior is calm, cooperative, bp appropriate for age. Pain: Denies pain. Respiratory: Reports shortness of breath PT MAKING LARYNGEAL NOISES, BUT NO OBJECTIVE FINDINGS NOTED Onset: The symptoms/episode began/occurred suddenly, the patient reports symptoms have resolved. Historical: - Allergies: 23:33 NKA; bp - Home Meds: 23:33 None [Active]; bp - PMHx: 23:33 None; bp - Immunization history:: Adult Immunizations up to date. - Social history:: Smoking status: Patient uses tobacco products, denies chronic smoking, but will smoke occasionally, Patient uses street drugs, marijuana. - Ebola Screening: : Patient negative for fever greater than or equal to 101.5 degrees Fahrenheit, and additional compatible Ebola Virus Disease symptoms Patient denies exposure to infectious person Patient denies travel to an Ebola-affected area in the 21 days before illness onset No symptoms or risks identified at this time. - Family history:: not pertinent. Screenin:35 Abuse screen: Denies threats or abuse. Denies injuries from another. Nutritional bp screening: No deficits noted. Tuberculosis screening: No symptoms or risk factors identified. Fall Risk None identified. Assessment: 23:35 General: Appears in no apparent distress. comfortable, Behavior is calm, cooperative, bp appropriate for age. Pain: Denies pain. Unable to use pain scale. Neuro: Level of Consciousness is awake, alert, obeys commands, Oriented to person, place, time, situation, Appropriate for age. Cardiovascular: Rhythm is sinus rhythm. Respiratory: Airway is patent Respiratory effort is even, unlabored, Respiratory pattern is regular, symmetrical, Breath sounds are clear bilaterally. 12/29 00:09 Reassessment: Pt up walking down hallway. Asked if he wanted to stay and get his fc medication. Pt replied "no I'm leaving". He was asked again by Yadiel Alvarez and pt continued to walk out. Dr Jeff notified. Vital Signs: 12/28 23:33 BP 111 / 77; Pulse 66; Resp 16; Temp 97.9; Pulse Ox 99% ; Weight 77.11 kg; bp ED Course: 23:31 Patient arrived in ED. bp 23:33 Triage completed. bp 23:33 Arm band placed on. bp 23:35 Patient has correct armband on for positive identification. Bed in low position. Call bp light in reach. Side rails up X2. 23:43 Tramaine Jeff MD is Attending Physician. dali 23:52 Kvng Serrano, RN is Primary Nurse. mb3 12/29 00:00 Patient moved to radiology via wheelchair. kw 00:01 X-ray completed. Patient tolerated procedure well. kw 00:01 Patient moved back from radiology. kw 00:02 Chest Pa And Lat (2 Views) XRAY In Process Unspecified. EDMS Administered Medications: 00:11 Not Given (Patient Eloped): Albuterol - atroVENT (3:1) (2.5 mg - 0.5 mg) 3 ml Nebulizer fc once 00:11 Not Given (Patient Eloped): predniSONE 60 mg PO once fc 00:11 Not Given (Patient Eloped): Zithromax 500 mg PO once fc Outcome: 00:12 Discharge ordered by . dali 00:27 Patient left the ED. mb3 Signatures: Dispatcher [employer] EDMS Tramaine Jeff MD MD cha Chretien, Felicia, RN RN Tova Fairbanks Brian, RN RN Serrano, Kvng, RN RN mb3
--- NOTE | 2017-12-29 06:56 | RAD REPORT ---
EXAM DESCRIPTION: RAD - Chest Pa And Lat (2 Views) - 12/29/2017 12:04 am CLINICAL HISTORY: Shortness of breath, smoking history COMPARISON: November 11 TECHNIQUE: PA and lateral views of the chest were obtained. FINDINGS: The lungs are clear. Slightly reduced lung volumes increased lung base markings. True jaci g base process is doubtful. Heart size is normal and central vasculature is within normal limits. No pleural effusion or pneumothorax seen. No acute bony finding noted. No aortic abnormality. IMPRESSION: No acute cardiopulmonary process. No significant interval change.
== END 2017-12-29 00:27 | disposition home or self-care (01) ==
LOC: ER 23:26
DX: J45.909 Unspecified asthma, uncomplicated (principal); R05 Cough; Z72.0 Tobacco use
CPT/HCPCS: 71046; 99284; J7512

== ENCOUNTER 2019-01-29 23:28 | Emergency (ER) | payer SELFPAY ==
[2019-01-29] MEDS ORDERED: ALBUTEROL 2.5 MG/3 ML NEB SOL ONE ×2 (23:31→23:43)
[2019-01-29] MEDS ORDERED: IPRATROPIUM BROM 0.5MG/2.5ML ONE ×2 (23:31→23:43)
[2019-01-29] MEDS ORDERED: METHYLPREDNISOLONE 125 MG INJ ONE (23:42)
[2019-01-29] MEDS ORDERED: Magnesium Sulfate 2gm IVPB 2 G/50 ML BAG IV ONE (23:43)
--- NOTE | 2019-01-30 01:57 | ER ---
Nurse's Notes [facility] Name: Chito Gibbs Age: 23 yrs Sex: Male : 1995 Arrival Date: 01/29/2019 Time: 23:28 Bed 7 Private MD: Diagnosis: Unspecified asthma with (acute) exacerbation Presentation: 01/29 23:20 Presenting complaint: Patient states: that he was walking home and started to have fc asthma attack. Also states that he was spitting up blood. 23:20 Acuity: JIGAR 3 23:20 Method Of Arrival: EMS: [facility] 23:39 Transition of care: patient was not received from another setting of care. Onset of fc symptoms was January 29, 2019. Risk Assessment: Do you want to hurt yourself or someone else? Patient reports no desire to harm self or others. Initial Sepsis Screen: Does the patient meet any 2 criteria? RR > 20 per min. HR > 90 bpm. Yes Does the patient have a suspected source of infection? No. Patient's initial sepsis screen is negative. Care prior to arrival: Medication(s) given: Albuterol Neb x 1, Atrovent Neb x 1. Historical: - Allergies: 23:43 NKA; fc - Home Meds: 23:43 Unable to obtain [Active]; fc - PMHx: 23:43 Asthma; fc - PSHx: 23:43 None; fc - Immunization history:: Last tetanus immunization: unknown. - Social history:: Smoking status: Patient uses tobacco products, denies chronic smoking, but will smoke occasionally, Patient/guardian denies using alcohol, street drugs. - Ebola Screening: : Patient negative for fever greater than or equal to 101.5 degrees Fahrenheit, and additional compatible Ebola Virus Disease symptoms Patient denies exposure to infectious person Patient denies travel to an Ebola-affected area in the 21 days before illness onset. Screenin:20 Abuse screen: Denies threats or abuse. Nutritional screening: No deficits noted. fc Tuberculosis screening: No symptoms or risk factors identified. Fall Risk None identified. Assessment: 23:55 General: Appears uncomfortable, Behavior is cooperative, appropriate for age, anxious. jd3 Pain: Denies pain. Neuro: Level of Consciousness is awake, alert, obeys commands, Oriented to person, place, time, situation. Cardiovascular: Heart tones S1 S2 present Capillary refill < 3 seconds Patient's skin is warm and dry. Respiratory: Airway is patent Respiratory effort is even, labored, Respiratory pattern is symmetrical, tachypnea Breath sounds with wheezes bilaterally. GI: No signs and/or symptoms were reported involving the gastrointestinal system. : No signs and/or symptoms were reported regarding the genitourinary system. EENT: No signs and/or symptoms were reported regarding the EENT system. Derm: Skin is intact, Skin is dry, Skin is normal, Skin temperature is warm. Musculoskeletal: Circulation, motion, and sensation intact. Range of motion: intact in all extremities. 01/30 00:36 Reassessment: Patient appears in no apparent distress at this time. Patient and/or jd3 family updated on plan of care and expected duration. Pain level reassessed. A \T\ O X 4, even, labored respirations, patient reports some relief from the shortness of breath. 00:55 Reassessment: Patient appears in no apparent distress at this time. No changes from jd3 previously documented assessment. Patient and/or family updated on plan of care and expected duration. Pain level reassessed. reports feeling slightly better than before. 01:45 Reassessment: Patient appears in no apparent distress at this time. Patient and/or jd3 family updated on plan of care and expected duration. Pain level reassessed. Patient is alert, oriented x 3, equal unlabored respirations, skin warm/dry/pink. Patient states feeling better. 01:50 Respiratory: Airway is patent Respiratory effort is even, unlabored, Respiratory jd3 pattern is regular, symmetrical, Breath sounds are clear bilaterally. 02:45 Reassessment: Patient appears in no apparent distress at this time. Patient and/or jd3 family updated on plan of care and expected duration. Pain level reassessed. Patient is alert, oriented x 3, equal unlabored respirations, skin warm/dry/pink. reported understanding of discharge instructions. Patient denies pain at this time. Patient states feeling better. Patient states symptoms have improved. Vital Signs: 01/29 23:20 BP 125 / 93; Pulse 114; Resp 32; Temp 98.2(O); Pulse Ox 99% on R/A; Weight 79.38 kg fc (R); Height 5 ft. 7 in. (170.18 cm) (R); Pain 9/10; 01/30 00:00 BP 117 / 86; Pulse 111; Resp 25 S; Pulse Ox 100% on Nebulizer Mask; jd3 00:56 BP 116 / 75; Pulse 96; Resp 25 S; Pulse Ox 98% on Non-rebreather mask; jd3 01:30 BP 118 / 79; Pulse 92; Resp 20 S; Pulse Ox 97% on R/A; jd3 02:48 BP 114 / 84; Pulse 89; Resp 17 S; Pulse Ox 97% on R/A; jd3 01/29 23:20 Body Mass Index 27.41 (79.38 kg, 170.18 cm) ED Course: 01/29 23:20 Arm band placed on Patient placed in a hallway bed, on a stretcher. fc 23:20 Patient has correct armband on for positive identification. Bed in low position. Call fc light in reach. Side rails up X2. Pulse ox on. NIBP on. 23:20 No provider procedures requiring assistance completed. fc 23:28 Patient arrived in ED. ds1 23:31 Tramaine Jeff MD is Attending Physician. dali 23:33 Kathia Low FNP-C is PHCP. kb 23:40 Obi Veliz RN is Primary Nurse. jd3 23:41 Triage completed. fc 23:50 Inserted saline lock: 20 gauge in right antecubital area, using aseptic technique. jd3 01/30 00:34 Patient moved to radiology via wheelchair. mh1 00:35 X-ray completed. Patient tolerated procedure well. Patient moved back from radiology. mh1 00:39 Chest Pa And Lat (2 Views) XRAY In Process Unspecified. EDMS 02:46 IV discontinued, intact, bleeding controlled, No redness/swelling at site. Pressure jd3 dressing applied. Administered Medications: 01/29 23:35 Drug: DuoNeb (3:1) (2.5 mg - 0.5 mg) 3 ml Route: Nebulizer; 01/30 00:30 Follow up: Response: No adverse reaction [facility] 01/29 23:54 Drug: SOLU-Medrol 125 mg Route: IVP; Site: right antecubital; [facility] 01/30 00:50 Follow up: Response: No adverse reaction [facility] 01/29 23:54 Drug: Magnesium Sulfate 2 grams Route: IVPB; Infused Over: 2 hrs; Site: right jd3 antecubital; 01/30 00:50 Follow up: Response: No adverse reaction; IV Status: Completed infusion jd3 Outcome: 01:56 Discharge ordered by MD. mon 02:46 Discharged to home ambulatory, with friend. jd3 02:46 Condition: stable 02:46 Discharge instructions given to patient, Instructed on discharge instructions, follow up and referral plans. Demonstrated understanding of instructions, follow-up care. 02:49 Patient left the ED. jd3 Signatures: Dispatcher [employer] EDMS Kathia Low, CATTLE CARE WORKER-C CATTLE CARE WORKER-Ckb Tramaine Jeff MD MD cha Harvey, Martha 1 Dee Plaza RN RN Valeri Hassan 1 Obi Veliz RN RN jd3 Corrections: (The following items were deleted from the chart) 01/29 23:42 23:39 Presenting complaint: Patient states: that he was walking home and started to have asthma attack. Also states that he was spitting up blood. 23:42 23:39 Method Of Arrival: EMS: [facility] 23:42 23:39 Acuity: JIGAR 3 [facility] 01/30 02:48 01/29 23:30 Inserted saline lock: 20 gauge in right antecubital area, using aseptic jd3 technique. jd3
--- NOTE | 2019-01-30 01:57 | EDPHYS ---
Physician Documentation [facility] Name: Chito Gibbs Age: 23 yrs Sex: Male : 1995 Arrival Date: 01/29/2019 Time: 23:28 Bed 7 Private MD: ED Physician Tramaine Jeff HPI: 01/30 02:09 This 23 yrs old Black Male presents to ER via EMS with complaints of Shortness Of kb Breath. 02:09 The patient has shortness of breath with light activity, and the patient has a history kb of asthma. 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 Duration: The symptoms are continuous. The patient's shortness of breath is aggravated by walking. Associated signs and symptoms: The patient has no apparent associated signs or symptoms. Severity of symptoms: At their worst the symptoms were moderate in the emergency department the symptoms are unchanged. The patient has experienced similar episodes in the past. The patient has not recently seen a physician. Pt reports shortness of breath that started while walking home. Historical: - Allergies: 01/29 23:43 NKA; fc - Home Meds: 23:43 Unable to obtain [Active]; fc - PMHx: 23:43 Asthma; fc - PSHx: 23:43 None; fc - Immunization history:: Last tetanus immunization: unknown. - Social history:: Smoking status: Patient uses tobacco products, denies chronic smoking, but will smoke occasionally, Patient/guardian denies using alcohol, street drugs. - Ebola Screening: : Patient negative for fever greater than or equal to 101.5 degrees Fahrenheit, and additional compatible Ebola Virus Disease symptoms Patient denies exposure to infectious person Patient denies travel to an Ebola-affected area in the 21 days before illness onset. ROS: 01/30 02:08 Constitutional: Negative for fever, chills, and weight loss, Neck: Negative for injury, kb pain, and swelling, Cardiovascular: Negative for chest pain, palpitations, and edema, Abdomen/GI: Negative for abdominal pain, nausea, vomiting, diarrhea, and constipation, Back: Negative for injury and pain, : Negative for injury, bleeding, discharge, and swelling, MS/Extremity: Negative for injury and deformity, Skin: Negative for injury, rash, and discoloration, Neuro: Negative for headache, weakness, numbness, tingling, and seizure. Respiratory: Positive for shortness of breath, wheezing. Exam: 02:08 Constitutional: This is a well developed, well nourished patient who is awake, alert, kb and in no acute distress. Head/Face: Normocephalic, atraumatic. ENT: Nares patent. No nasal discharge, no septal abnormalities noted. Tympanic membranes are normal and external auditory canals are clear. Oropharynx with no redness, swelling, or masses, exudates, or evidence of obstruction, uvula midline. Mucous membranes moist. Neck: Trachea midline, no thyromegaly or masses palpated, and no cervical lymphadenopathy. Supple, full range of motion without nuchal rigidity, or vertebral point tenderness. No Meningismus. Chest/axilla: Normal chest wall appearance and motion. Nontender with no deformity. No lesions are appreciated. Cardiovascular: Regular rate and rhythm with a normal S1 and S2. No gallops, murmurs, or rubs. Normal PMI, no JVD. No pulse deficits. Abdomen/GI: Soft, non-tender, with normal bowel sounds. No distension or tympany. No guarding or rebound. No evidence of tenderness throughout. Back: No spinal tenderness. No costovertebral tenderness. Full range of motion. Skin: Warm, dry with normal turgor. Normal color with no rashes, no lesions, and no evidence of cellulitis. MS/ Extremity: Pulses equal, no cyanosis. Neurovascular intact. Full, normal range of motion. Neuro: Awake and alert, GCS 15, oriented to person, place, time, and situation. Cranial nerves II-XII grossly intact. Motor strength 5/5 in all extremities. Sensory grossly intact. Cerebellar exam normal. Normal gait. 02:08 Respiratory: the patient does not display signs of respiratory distress, Respirations: normal, Breath sounds: wheezing: inspiratory Vital Signs: 01/29 23:20 BP 125 / 93; Pulse 114; Resp 32; Temp 98.2(O); Pulse Ox 99% on R/A; Weight 79.38 kg fc (R); Height 5 ft. 7 in. (170.18 cm) (R); Pain 9/10; 01/30 00:00 BP 117 / 86; Pulse 111; Resp 25 S; Pulse Ox 100% on Nebulizer Mask; jd3 00:56 BP 116 / 75; Pulse 96; Resp 25 S; Pulse Ox 98% on Non-rebreather mask; jd3 01:30 BP 118 / 79; Pulse 92; Resp 20 S; Pulse Ox 97% on R/A; jd3 02:48 BP 114 / 84; Pulse 89; Resp 17 S; Pulse Ox 97% on R/A; jd3 01/29 23:20 Body Mass Index 27.41 (79.38 kg, 170.18 cm) MDM: 01/29 23:31 Patient medically screened. [facility] 01/30 02:07 Data reviewed: vital signs, nurses notes. Data interpreted: Pulse oximetry: on room air kb is 98 %. Interpretation: normal. Counseling: I had a detailed discussion with the patient and/or guardian regarding: the historical points, exam findings, and any diagnostic results supporting the discharge/admit diagnosis, radiology results, the need for outpatient follow up, a family practitioner, to return to the emergency department if symptoms worsen or persist or if there are any questions or concerns that arise at home. 02:08 ED course: Resp even, unlabored and clear. kb 01/29 23:35 Order name: Chest Pa And Lat (2 Views) XRAY kb 01/29 23:35 Order name: IV Start; Complete Time: 23:54 kb Administered Medications: 01/29 23:35 Drug: DuoNeb (3:1) (2.5 mg - 0.5 mg) 3 ml Route: Nebulizer; 01/30 00:30 Follow up: Response: No adverse reaction [facility] 01/29 23:54 Drug: SOLU-Medrol 125 mg Route: IVP; Site: right antecubital; [facility] 01/30 00:50 Follow up: Response: No adverse reaction [facility] 01/29 23:54 Drug: Magnesium Sulfate 2 grams Route: IVPB; Infused Over: 2 hrs; Site: right [facility] antecubital; 01/30 00:50 Follow up: Response: No adverse reaction; IV Status: Completed infusion [facility] Disposition: 01/30/19 01:56 Discharged to Home. Impression: Unspecified asthma with (acute) exacerbation. - Condition is Stable. - Discharge Instructions: Asthma, Adult, [id number]. - Medication Reconciliation Form, Thank You Letter, Antibiotic Education, Prescription Opioid Use form. - Follow up: Emergency Department; When: As needed; Reason: Worsening of condition. Follow up: Private Physician; When: 2 - 3 days; Reason: Recheck today's complaints, Continuance of care, Re-evaluation by your physician. Addendum: 02/01/2019 09:20 Co-signature as Attending Physician, Tramaine Jeff MD I agree with the assessment and c shen plan of care. Signatures: Dispatcher [employer] EDOK Kathia Low, STOCK HOUSE WORKER-C STOCK HOUSE WORKER-Ckb Tramaine Jeff MD MD cha Chretien, Felicia, RN RN Obi Veliz RN RN jd3 Corrections: (The following items were deleted from the chart) 01/30 02:49 01:56 01/30/2019 01:56 Discharged to Home. Impression: Unspecified asthma with (acute) jd3 exacerbation. Condition is Stable. Forms are Medication Reconciliation Form, Thank You Letter, Antibiotic Education, Prescription Opioid Use. Follow up: Emergency Department; When: As needed; Reason: Worsening of condition. Follow up: Private Physician; When: 2 - 3 days; Reason: Recheck today's complaints, Continuance of care, Re-evaluation by your physician. kb
--- NOTE | 2019-01-30 11:07 | RAD REPORT ---
EXAM DESCRIPTION: [place] Anda (2 Views)01/30/2019 12:38 am CLINICAL HISTORY: sob COMPARISON: 2018 FINDINGS: Lungs are mildly hyperaerated. The lungs appear clear of acute infiltrate. The heart is normal size IMPRESSION: No acute abnormalities displayed
== END 2019-01-30 02:49 | disposition home or self-care (01) ==
LOC: ER 23:28
DX: J45.901 Unspecified asthma with (acute) exacerbation (principal); Z72.0 Tobacco use
CPT/HCPCS: 71046; 94640; 96365; 96375; 99284; J2930; J3475

== ENCOUNTER 2020-03-09 00:18 | Emergency (ER) | payer SELFPAY ==
[2020-03-09] MEDS ORDERED: IPRATROPIUM BROM 0.5MG/2.5ML ONE (00:53)
[2020-03-09] MEDS ORDERED: predniSONE 20 MG TAB ONE (00:53)
[2020-03-09] MEDS ORDERED: ALBUTEROL 2.5 MG/3 ML NEB SOL ONE (00:54)
--- NOTE | 2020-03-09 02:33 | ER ---
Nurse's Notes [facility] Name: Chito Gibbs Age: 24 yrs Sex: Male : 1995 Arrival Date: 03/09/2020 Time: 00:25 Bed 17 Private MD: Diagnosis: Asthma Exacerbation Presentation: 03/09 00:27 Chief complaint: EMS states: Reports pt started having an asthma attack about thirty ea minutes ago, EMS reports giving an A\T\A treatment with some improvement. Coronavirus screen: At this time, the client does not indicate any symptoms associated with coronavirus-19. Ebola Screen: No symptoms or risks identified at this time. Initial Sepsis Screen: Does the patient meet any 2 criteria? No. Patient's initial sepsis screen is negative. Does the patient have a suspected source of infection? No. Patient's initial sepsis screen is negative. Risk Assessment: Do you want to hurt yourself or someone else? Patient reports no desire to harm self or others. Onset of symptoms was March 09, 2020. 00:27 Method Of Arrival: EMS: [facility] ea 00:27 Acuity: JIGAR 3 ea Triage Assessment: 00:33 General: Appears in no apparent distress. Behavior is appropriate for age. Pain: Denies ea pain. Historical: - Allergies: 00:31 NKA; ea - PMHx: 00:31 Asthma; ea - PSHx: 00:31 None; ea - Immunization history:: Adult Immunizations up to date. - Social history:: Smoking status: unknown. Screenin:30 Abuse screen: Denies threats or abuse. Nutritional screening: No deficits noted. ea Tuberculosis screening: No symptoms or risk factors identified. Fall Risk None identified. Assessment: 00:33 General: Appears in no apparent distress. Behavior is appropriate for age. Pain: Denies ea pain. Neuro: Level of Consciousness is awake, alert, obeys commands, Oriented to person, place, time, situation. Cardiovascular: Patient's skin is warm and dry. Respiratory: Airway is patent Respiratory effort is even, unlabored, Respiratory pattern is regular, symmetrical, Breath sounds with wheezes bilaterally. Derm: Skin is pink, warm \T\ dry. 01:14 Reassessment: Patient and/or family updated on plan of care and expected duration. Pain ea level reassessed. Pt resting with eyes closed, respirations even and unlabored. Chest expansions even and symmetrical. 02:41 Reassessment: Patient and/or family updated on plan of care and expected duration. Pain ea level reassessed. Patient is alert, oriented x 3, equal unlabored respirations, skin warm/dry/pink. Discharge instruction given to patient, verbalized the understanding of instruction. Pt left ED ambulatory tolerating well. Patient states feeling better. Vital Signs: 00:27 BP 128 / 75; Pulse 110; Resp 20; Temp 98.8; Pulse Ox 96% on R/A; Weight 72.57 kg; ea Height 5 ft. 9 in. (175.26 cm); 01:15 BP 111 / 72; Pulse 92; Resp 18; Pulse Ox 99% on Nebulizer Mask; ea 02:40 BP 116 / 79; Pulse 90; Resp 18; Temp 98.6; Pulse Ox 99% on R/A; ea 00:27 Body Mass Index 23.63 (72.57 kg, 175.26 cm) ea ED Course: 00:25 Patient arrived in ED. vc 00:27 Dalila Matthew, ELVI is Primary Nurse. ea 00:29 Triage completed. ea 00:30 Patient has correct armband on for positive identification. Bed in low position. Call ea light in reach. Side rails up X2. 00:30 Arm band placed on right wrist. Patient placed in an exam room, on a stretcher, on ea pulse oximetry. 00:32 Luke Sanchez MD is Attending Physician. [facility] 02:40 No provider procedures requiring assistance completed. Patient did not have IV access ea during this emergency room visit. Administered Medications: 00:46 Drug: Albuterol - atroVENT (3:1) (2.5 mg - 0.5 mg) 3 ml Route: Nebulizer; ea 02:41 Follow up: Response: No adverse reaction ea 00:46 Drug: predniSONE 60 mg Route: PO; ea 02:42 Follow up: Response: No adverse reaction ea Outcome: 02:33 Discharge ordered by . [facility] 02:40 Discharged to home ambulatory. ea 02:40 Condition: stable 02:40 Discharge instructions given to patient, Instructed on discharge instructions, follow up and referral plans. medication usage, Demonstrated understanding of instructions, follow-up care, medications, Prescriptions given X 2. 02:42 Patient left the ED. ea Signatures: Dalila Matthew, RN RN Carrie Reed, RN RN Luke Hughes MD MD [id number]
--- NOTE | 2020-03-09 02:34 | EDPHYS ---
Physician Documentation [facility] Name: Chito Gibbs Age: 24 yrs Sex: Male : 1995 Arrival Date: 03/09/2020 Time: 00:25 Bed 17 Private MD: ED Physician Luke Sanchez HPI: 03/09 00:49 This 24 yrs old Black Male presents to ER via EMS with complaints of Asthma Attack. [facility] 00:49 The patient presents to the emergency department with wheezing, Current therapy: 7 albuterol inhaler, that began without any particular precipitating event, the patient was reported to have audible wheezing, trouble breathing, Pre-hospital care: luis acevedo, Angel. Onset: The symptoms/episode began/occurred today. Modifying factors: The symptoms are alleviated by nebulizer treatment, the symptoms are aggravated by exertion. Associated signs and symptoms: Pertinent negatives: chest pain, choking, fever, headache, nausea, palpitations, rash, vomiting. 00:50 Severity of symptoms: At their worst the symptoms were moderate today, in the emergency [facility] department the symptoms have improved moderately. The patient has experienced similar episodes in the past, multiple times. Historical: - Allergies: 00:31 NKA; ea - PMHx: 00:31 Asthma; ea - PSHx: 00:31 None; ea - Immunization history:: Adult Immunizations up to date. - Social history:: Smoking status: unknown. ROS: 00:50 Constitutional: Negative for fever, chills, and weight loss, Eyes: Negative for injury, mh7 pain, redness, and discharge, ENT: Negative for injury, pain, and discharge, Neck: Negative for injury, pain, and swelling, Cardiovascular: Negative for chest pain, palpitations, and edema, Abdomen/GI: Negative for abdominal pain, nausea, vomiting, diarrhea, and constipation, Back: Negative for injury and pain, : Negative for injury, bleeding, discharge, and swelling, MS/Extremity: Negative for injury and deformity, Skin: Negative for injury, rash, and discoloration, Neuro: Negative for headache, weakness, numbness, tingling, and seizure, Psych: Negative for depression, anxiety, suicide ideation, homicidal ideation, and hallucinations, Allergy/Immunology: Negative for hives, rash, and allergies, Endocrine: Negative for neck swelling, polydipsia, polyuria, polyphagia, and marked weight changes, Hematologic/Lymphatic: Negative for swollen nodes, abnormal bleeding, and unusual bruising. Exam: 00:50 Constitutional: This is a well developed, well nourished patient who is awake, alert, mh7 and in no acute distress. Head/Face: Normocephalic, atraumatic. Neck: Trachea midline, no thyromegaly or masses palpated, and no cervical lymphadenopathy. Supple, full range of motion without nuchal rigidity, or vertebral point tenderness. No Meningismus. Chest/axilla: Normal chest wall appearance and motion. Nontender with no deformity. No lesions are appreciated. Cardiovascular: Regular rate and rhythm with a normal S1 and S2. No gallops, murmurs, or rubs. Normal PMI, no JVD. No pulse deficits. 00:50 Abdomen/GI: Soft, non-tender, with normal bowel sounds. No distension or tympany. No guarding or rebound. No evidence of tenderness throughout. 00:50 Back: No spinal tenderness. No costovertebral tenderness. Full range of motion. Skin: Warm, dry with normal turgor. Normal color with no rashes, no lesions, and no evidence of cellulitis. Neuro: Awake and alert, GCS 15, oriented to person, place, time, and situation. Cranial nerves II-XII grossly intact. Motor strength 5/5 in all extremities. Sensory grossly intact. Cerebellar exam normal. Normal gait. Psych: Awake, alert, with orientation to person, place and time. Behavior, mood, and affect are within normal limits. 00:50 Respiratory: the patient does not display signs of respiratory distress, Respirations: prolonged exhalation, that is mild, Breath sounds: wheezing: expiratory that is mild, is heard diffusely, Respiratory rate: 20 00:53 MS/ Extremity: Pulses equal, no cyanosis. Neurovascular intact. Full, normal range mh7 of motion. Vital Signs: 00:27 BP 128 / 75; Pulse 110; Resp 20; Temp 98.8; Pulse Ox 96% on R/A; Weight 72.57 kg; ea Height 5 ft. 9 in. (175.26 cm); 01:15 BP 111 / 72; Pulse 92; Resp 18; Pulse Ox 99% on Nebulizer Mask; ea 02:40 BP 116 / 79; Pulse 90; Resp 18; Temp 98.6; Pulse Ox 99% on R/A; ea 00:27 Body Mass Index 23.63 (72.57 kg, 175.26 cm) ea MDM: 00:42 Patient medically screened. [facility] 02:30 Differential diagnosis: acute asthma, exercise-induced asthma, reactive airway. Data [facility] reviewed: vital signs, nurses notes, old medical records. Data interpreted: Pulse oximetry: on room air is 99 %. Interpretation: normal. Counseling: I had a detailed discussion with the patient and/or guardian regarding: the historical points, exam findings, and any diagnostic results supporting the discharge/admit diagnosis, the need for outpatient follow up, to return to the emergency department if symptoms worsen or persist or if there are any questions or concerns that arise at home. Response to treatment: the patient's symptoms have resolved after treatment, the patient's blood pressure is in an acceptable range, mental status has returned to baseline, the patient no longer shows bradycardia, the patient is not short of breath, the patient is not tachycardic, the patient's pain is gone, the patient's temperature has normalized, the patient is now symptom free, patient is well hydrated. Administered Medications: 00:46 Drug: Albuterol - atroVENT (3:1) (2.5 mg - 0.5 mg) 3 ml Route: Nebulizer; ea 02:41 Follow up: Response: No adverse reaction 00:46 Drug: predniSONE 60 mg Route: PO; ea 02:42 Follow up: Response: No adverse reaction ea Disposition: 03/09/20 02:33 Discharged to Home. Impression: Asthma Exacerbation. - Condition is Stable. - Discharge Instructions: Asthma, Adult, [id number]. - Prescriptions for Prednisone 20 mg Oral Tablet - take 2 tablet by ORAL route once daily for 5 days; 10 tablet. Albuterol Sulfate 90 mcg/actuation - inhale 1-2 puff by INHALATION route every 4-6 hours; 1 Inhaler. - Medication Reconciliation Form, Thank You Letter, Antibiotic Education, Prescription Opioid Use form. - Follow up: Private Physician; When: 1 - 2 days; Reason: Worsening of condition, Recheck today's complaints, Continuance of care, Re-evaluation by your physician. - Problem is an acute exacerbation. - Symptoms have improved. Signatures: Dalila Matthew RN Luke Nunez ea, MD MD mh7 Corrections: (The following items were deleted from the chart) 02:42 02:33 03/09/2020 02:33 Discharged to Home. Impression: Asthma Exacerbation. Condition ea is Stable. Forms are Medication Reconciliation Form, Thank You Letter, Antibiotic Education, Prescription Opioid Use. Follow up: Private Physician; When: 1 - 2 days; Reason: Worsening of condition, Recheck today's complaints, Continuance of care, Re-evaluation by your physician. Problem is an acute exacerbation. Symptoms have improved. mh7
[2020-03-09 02:53] VITALS: O2SAT 99
[2020-03-09 03:00] VITALS: BP 116/79; TEMP 98.6
== END 2020-03-09 02:42 | disposition home or self-care (01) ==
LOC: ER 00:18
DX: J45.901 Unspecified asthma with (acute) exacerbation (principal)
CPT/HCPCS: 99284; J7512

== ENCOUNTER 2020-03-17 03:03 | Emergency (ER) | payer SELFPAY ==
[2020-03-17] MEDS ORDERED: ALBUTEROL 2.5 MG/3 ML NEB SOL ONE (03:36)
[2020-03-17] MEDS ORDERED: IPRATROPIUM BROM 0.5MG/2.5ML ONE (03:36)
[2020-03-17] MEDS ORDERED: METHYLPREDNISOLONE 125 MG INJ ONE (03:36)
--- NOTE | 2020-03-17 05:06 | EDPHYS ---
Physician Documentation [facility] Name: Chito Gibbs Age: 24 yrs Sex: Male : 1995 Arrival Date: 03/17/2020 Time: 03:04 Bed 6 Private MD: ED Physician Russ Almeida HPI: 03/17 05:00 This 24 yrs old Black Male presents to ER via EMS with complaints of Asthma. pkl 05:00 The patient has shortness of breath at rest. Onset: The symptoms/episode began/occurred pkl just prior to arrival. Associated signs and symptoms: The patient has no apparent associated signs or symptoms. Patient said he has H/O asthma. Historical: - Allergies: 03:13 NKA; rr5 - Home Meds: 03:13 None [Active]; rr5 - PMHx: 03:13 Asthma; rr5 - PSHx: 03:13 None; rr5 - Immunization history:: Adult Immunizations unknown. - Social history:: Smoking status: unknown Patient/guardian denies using alcohol, street drugs, tobacco products. ROS: 05:00 Eyes: Negative for injury, pain, redness, and discharge, ENT: Negative for injury, pkl pain, and discharge, Neck: Negative for injury, pain, and swelling, Cardiovascular: Negative for chest pain, palpitations, and edema. 05:00 Respiratory: Positive for shortness of breath, wheezing. 05:00 Abdomen/GI: Negative for abdominal pain, nausea, vomiting, and diarrhea. 05:00 Back: Negative for acute changes. 05:00 : Negative for urinary symptoms. 05:00 MS/extremity: Negative for acute changes. 05:00 Skin: Negative for rash. 05:00 Neuro: Negative for altered mental status. Exam: 05:00 Head/Face: Normocephalic, atraumatic. Eyes: Pupils equal round and reactive to light, pkl extra-ocular motions intact. Lids and lashes normal. Conjunctiva and sclera are non-icteric and not injected. Cornea within normal limits. Periorbital areas with no swelling, redness, or edema. ENT: Nares patent. No nasal discharge, no septal abnormalities noted. Tympanic membranes are normal and external auditory canals are clear. Oropharynx with no redness, swelling, or masses, exudates, or evidence of obstruction, uvula midline. Mucous membranes moist. Neck: Trachea midline, no thyromegaly or masses palpated, and no cervical lymphadenopathy. Supple, full range of motion without nuchal rigidity, or vertebral point tenderness. No Meningismus. Chest/axilla: Normal chest wall appearance and motion. Nontender with no deformity. No lesions are appreciated. Cardiovascular: Regular rate and rhythm with a normal S1 and S2. No gallops, murmurs, or rubs. Normal PMI, no JVD. No pulse deficits. 05:00 Respiratory: mild respiratory distress is noted, Respirations: labored breathing, that is mild, Breath sounds: bronchial sounds, that are moderate, are scattered, rhonchi, that are moderate, are scattered. 05:00 Abdomen/GI: Bowel sounds: normal, Palpation: abdomen is soft and non-tender, in all quadrants. 05:00 Back: Exam negative for acute changes. 05:00 : Exam negative for acute changes. 05:00 Musculoskeletal/extremity: Exam is negative for acute changes. 05:00 Skin: Exam negative for rash. 05:00 Neuro: Orientation: is normal, Mentation: is normal, Cranial nerves: grossly normal, Motor: is normal. Vital Signs: 03:09 BP 127 / 82; Pulse 70; Resp 28; Temp 98.1; Pulse Ox 100% ; Weight 77.11 kg; Height 5 rr5 ft. 9 in. (175.26 cm); Pain 8/10; 04:23 BP 114 / 63; Pulse 84; Resp 20; Pulse Ox 98% ; rr5 03:09 Body Mass Index 25.10 (77.11 kg, 175.26 cm) rr5 MDM: 03:06 Patient medically screened. pkl 05:00 Data reviewed: vital signs, nurses notes. ED course: Patient feeling better. pkl Asymptomatic. Administered Medications: 03:30 Drug: SOLU-Medrol 125 mg Route: IVP; Site: left antecubital; jb4 03:30 Drug: Albuterol - atroVENT (3:1) (2.5 mg - 0.5 mg) 3 ml Route: Nebulizer; jb4 Disposition: 03/17/20 05:05 Discharged to Home. Impression: Acute exacerbation asthma. - Condition is Stable. - Prescriptions for Prednisone 20 mg Oral Tablet - take 1 tablet by ORAL route once daily for 5 days; 5 tablet. Albuterol Sulfate 90 mcg/actuation - inhale 1-2 puff by INHALATION route every 4-6 hours; 1 Inhaler. - Medication Reconciliation Form, Thank You Letter, Antibiotic Education, Prescription Opioid Use form. - Follow up: Private Physician; When: 2 - 3 days; Reason: Re-evaluation by your physician. - Problem is new. - Symptoms have improved. Signatures: Russ Almeida MD MD pkl Gary Russell RN RN jb4 Darrel Jacome RN RN rr5 Corrections: (The following items were deleted from the chart) 05:20 05:05 03/17/2020 05:05 Discharged to Home. Impression: Acute exacerbation asthma. jb4 Condition is Stable. Forms are Medication Reconciliation Form, Thank You Letter, Antibiotic Education, Prescription Opioid Use. Follow up: Private Physician; When: 2 - 3 days; Reason: Re-evaluation by your physician. Problem is new. Symptoms have improved. pkl
--- NOTE | 2020-03-17 05:06 | ER ---
Nurse's Notes [facility] Name: Chito Gibbs Age: 24 yrs Sex: Male : 1995 Arrival Date: 03/17/2020 Time: 03:04 Bed 6 Private MD: Diagnosis: Acute exacerbation asthma Presentation: 03/17 03:09 Chief complaint: EMS states: [facility] 30 minutes ago rr5 suddenly he felt shortness of breath, he has history of asthma and it gets worse. Coronavirus screen: Client denies travel out of the [place] in the last 14 days. shortness of breath. Ebola Screen: Patient negative for fever greater than or equal to 101.5 degrees Fahrenheit, and additional compatible Ebola Virus Disease symptoms Patient denies exposure to infectious person. Patient denies travel to an Ebola-affected area in the 21 days before illness onset. Initial Sepsis Screen: Does the patient meet any 2 criteria? RR > 20 per min. No. Patient's initial sepsis screen is negative. Does the patient have a suspected source of infection? No. Patient's initial sepsis screen is negative. Risk Assessment: Do you want to hurt yourself or someone else? Patient reports no desire to harm self or others. Onset of symptoms was March 17, 2020. Care prior to arrival: Medication(s) given: Albuterol Neb albuterol and atrovent nebulization and solumedrol 125mg given by EMS. 03:09 Method Of Arrival: EMS: [facility] rr5 03:09 Acuity: JIGAR 3 rr5 Historical: - Allergies: 03:13 NKA; rr5 - Home Meds: 03:13 None [Active]; rr5 - PMHx: 03:13 Asthma; rr5 - PSHx: 03:13 None; rr5 - Immunization history:: Adult Immunizations unknown. - Social history:: Smoking status: unknown Patient/guardian denies using alcohol, street drugs, tobacco products. Screenin:28 Abuse screen: Denies threats or abuse. Nutritional screening: No deficits noted. jb4 Tuberculosis screening: No symptoms or risk factors identified. Fall Risk None identified. Assessment: 03:28 General: Appears in no apparent distress. uncomfortable, Behavior is calm, cooperative, jb4 appropriate for age. Pain: Denies pain. Neuro: Level of Consciousness is awake, alert, obeys commands, Oriented to person, place, time, situation. Cardiovascular: Patient's skin is warm and dry. Respiratory: Airway is patent Respiratory effort is even, labored, Respiratory pattern is regular, symmetrical, Breath sounds with wheezes bilaterally. GI: No signs and/or symptoms were reported involving the gastrointestinal system. : No signs and/or symptoms were reported regarding the genitourinary system. EENT: No signs and/or symptoms were reported regarding the EENT system. Derm: Skin is intact, Skin is pink, warm \T\ dry. Musculoskeletal: Circulation, motion, and sensation intact. Range of motion: intact in all extremities. 04:25 Reassessment: Patient appears in no apparent distress at this time. Patient is alert, rr5 oriented x 3, equal unlabored respirations, skin warm/dry/pink. Patient states feeling better. Patient states symptoms have improved. 05:19 Reassessment: Patient appears in no apparent distress at this time. Patient and/or jb4 family updated on plan of care and expected duration. Pain level reassessed. Patient is alert, oriented x 3, equal unlabored respirations, skin warm/dry/pink. PT verbalized understanding of D/c and follow up instructions. Denies questions or concerns. Escorted out of ED in police custody. Vital Signs: 03:09 BP 127 / 82; Pulse 70; Resp 28; Temp 98.1; Pulse Ox 100% ; Weight 77.11 kg; Height 5 rr5 ft. 9 in. (175.26 cm); Pain 8/10; 04:23 BP 114 / 63; Pulse 84; Resp 20; Pulse Ox 98% ; rr5 03:09 Body Mass Index 25.10 (77.11 kg, 175.26 cm) rr5 ED Course: 03:04 Patient arrived in ED. cl3 03:06 Russ Almeida MD is Attending Physician. pkl 03:10 Maintain EMS IV. Dressing intact. Good blood return noted. Site clean \T\ dry. Gauge \T\ rr 5 site: g18 left ac. 03:13 Triage completed. rr5 03:13 Arm band placed on right wrist. rr5 03:16 Darrel Jacome RN is Primary Nurse. rr5 03:28 Patient has correct armband on for positive identification. Bed in low position. Call jb4 light in reach. Side rails up X 1. Pulse ox on. NIBP on. 04:26 Initial Neb Treatment Given as ordered Patient tolerated procedure well without adverse rr5 effect. 05:19 No provider procedures requiring assistance completed. IV discontinued, intact, jb4 bleeding controlled, No redness/swelling at site. Pressure dressing applied. Administered Medications: 03:30 Drug: SOLU-Medrol 125 mg Route: IVP; Site: left antecubital; jb4 03:30 Drug: Albuterol - atroVENT (3:1) (2.5 mg - 0.5 mg) 3 ml Route: Nebulizer; jb4 Outcome: 05:05 Discharge ordered by . pkmarcy 05:19 Discharged to Law Enforcement jb4 05:19 Condition: stable 05:19 Discharge instructions given to patient, Instructed on discharge instructions, follow up and referral plans. medication usage, Demonstrated understanding of instructions, follow-up care, medications, Prescriptions given X 2. 05:20 Patient left the ED. jb4 Signatures: Russ Almeida MD MD pkl Gary Russell RN RN jb4 Darrel Jacome RN RN rr5 Cristofer Claire cl3 Corrections: (The following items were deleted from the chart) 03:13 03:09 BP 127 / 82; Pulse 70bpm; Resp 28bpm; Pulse Ox 98.1%; Temp 100F; 77.11 kg; Height rr5 5 ft. 9 in.; BMI: 25.1; Pain 8/10; rr5
[2020-03-17 15:51] VITALS: TEMP 98.1
[2020-03-17 15:53] VITALS: BP 114/63; O2SAT 98
== END 2020-03-17 05:20 | disposition home or self-care (01) ==
LOC: ER 03:03
DX: J45.901 Unspecified asthma with (acute) exacerbation (principal)
CPT/HCPCS: 96374; 99284; J2930

== ENCOUNTER 2020-05-24 19:13 | Emergency (ER) | payer SELFPAY ==
[2020-05-24] MEDS ORDERED: IPRATROPIUM BROM 0.5MG/2.5ML ONE (19:39)
[2020-05-24] MEDS ORDERED: ALBUTEROL 2.5 MG/3 ML NEB SOL ONE (19:40)
--- NOTE | 2020-05-24 20:43 | EDPHYS ---
Physician Documentation [facility] Name: Chito Gibbs Age: 25 yrs Sex: Male : 1995 Arrival Date: 05/24/2020 Time: 19:14 Bed 17 Private MD: ED Physician Bryant Hdz HPI: 05/24 21:19 This 25 yrs old Black Male presents to ER via EMS with complaints of Shortness Of kb Breath. 21:19 The patient has shortness of breath at rest. Onset: The symptoms/episode began/occurred kb 30 minute(s) ago. Duration: The symptoms are continuous. The patient's shortness of breath has no apparent modifying factors. Associated signs and symptoms: Pertinent positives: non-productive cough, Pertinent negatives: chest pain, fever. Severity of symptoms: At their worst the symptoms were moderate in the emergency department the symptoms are unchanged. The patient has not experienced similar symptoms in the past. The patient has not recently seen a physician. Historical: - Allergies: 19:19 NKA; ll1 - PMHx: 19:19 Asthma; ll1 - PSHx: 19:19 None; ll1 ROS: 21:18 Constitutional: Negative for fever, chills, and weight loss, Cardiovascular: Negative kb for chest pain, palpitations, and edema, Abdomen/GI: Negative for abdominal pain, nausea, vomiting, diarrhea, and constipation, Back: Negative for injury and pain, MS/Extremity: Negative for injury and deformity, Skin: Negative for injury, rash, and discoloration, Neuro: Negative for headache, weakness, numbness, tingling, and seizure. 21:18 Respiratory: Positive for shortness of breath, Negative for cough, dyspnea on exertion, hemoptysis, orthopnea, pleurisy, sputum production, wheezing. Exam: 21:18 Constitutional: This is a well developed, well nourished patient who is awake, alert, kb and in no acute distress. Head/Face: Normocephalic, atraumatic. Chest/axilla: Normal chest wall appearance and motion. Nontender with no deformity. No lesions are appreciated. Cardiovascular: Regular rate and rhythm with a normal S1 and S2. No gallops, murmurs, or rubs. Normal PMI, no JVD. No pulse deficits. Abdomen/GI: Soft, non-tender, with normal bowel sounds. No distension or tympany. No guarding or rebound. No evidence of tenderness throughout. Skin: Warm, dry with normal turgor. Normal color with no rashes, no lesions, and no evidence of cellulitis. MS/ Extremity: Pulses equal, no cyanosis. Neurovascular intact. Full, normal range of motion. Neuro: Awake and alert, GCS 15, oriented to person, place, time, and situation. Cranial nerves II-XII grossly intact. Motor strength 5/5 in all extremities. Sensory grossly intact. Cerebellar exam normal. Normal gait. 21:18 Respiratory: the patient does not display signs of respiratory distress, Respirations: normal, Breath sounds: wheezing: inspiratory that is mild, is scattered. Vital Signs: 19:20 BP 113 / 93; Pulse 77; Resp 21; Temp 98.3(O); Pulse Ox 100% on R/A; Pain 4/10; jb4 20:30 BP 115 / 89; Pulse 64; Resp 16; Pulse Ox 100% on R/A; jb4 MDM: 19:15 Patient medically screened. kb 21:19 Data reviewed: vital signs, nurses notes. Data interpreted: Pulse oximetry: on room air kb is 100 %. Interpretation: normal. Counseling: I had a detailed discussion with the patient and/or guardian regarding: the historical points, exam findings, and any diagnostic results supporting the discharge/admit diagnosis, radiology results, the need for outpatient follow up, a family practitioner, to return to the emergency department if symptoms worsen or persist or if there are any questions or concerns that arise at home. 05/24 19:21 Order name: Chest Single View XRAY kb Administered Medications: 19:31 Drug: Albuterol 2.5 mg Route: Inhalation; jb4 20:30 Follow up: Response: Wheezing diminished jb4 19:31 Drug: AtroVENT Aerosol 0.5 mg Route: Inhalation; jb4 20:56 Follow up: Response: No adverse reaction; Wheezing diminished jb4 Disposition: 05/25 02:02 Co-signature as Attending Physician, Bryant Hdz MD I agree with the assessment and 4 plan of care. Disposition: 05/24/20 20:43 Discharged to Home. Impression: Dyspnea. - Condition is Stable. - Discharge Instructions: Shortness of Breath, [id number]. - Prescriptions for Albuterol Sulfate 90 mcg/actuation - inhale 1-2 puff by INHALATION route every 4-6 hours; 1 Inhaler. - Medication Reconciliation Form, Thank You Letter, Antibiotic Education, Prescription Opioid Use form. - Follow up: Emergency Department; When: As needed; Reason: Worsening of condition. Follow up: Private Physician; When: 2 - 3 days; Reason: Recheck today's complaints, Continuance of care, Re-evaluation by your physician. Signatures: Dispatcher [employer] Kathia Low, KUMAR-C WARP DOFFER-Gary Pagan, RN RN jb4 Bryant Hdz MD MD tw4 Kieran Claire RN RN ll1 Corrections: (The following items were deleted from the chart) 05/24 20:57 20:43 05/24/2020 20:43 Discharged to Home. Impression: Dyspnea. Condition is Stable. jb4 Forms are Medication Reconciliation Form, Thank You Letter, Antibiotic Education, Prescription Opioid Use. Follow up: Emergency Department; When: As needed; Reason: Worsening of condition. Follow up: Private Physician; When: 2 - 3 days; Reason: Recheck today's complaints, Continuance of care, Re-evaluation by your physician. kb
--- NOTE | 2020-05-24 20:43 | ER ---
Nurse's Notes [facility] Name: Chito Gibbs Age: 25 yrs Sex: Male : 1995 Arrival Date: 05/24/2020 Time: 19:14 Bed 17 Private MD: Diagnosis: Dyspnea Presentation: 05/24 19:18 Chief complaint: Patient states: Called EMS for SOB. VSS for EMS. 98%RA. Coronavirus ll1 screen: Client denies travel out of the [place] in the last 14 days. difficulty breathing, Client presents with at least one sign or symptom that may indicate coronavirus-19. Standard/surgical mask placed on the client. Ebola Screen: Patient denies travel to an Ebola-affected area in the 21 days before illness onset. Risk Assessment: Do you want to hurt yourself or someone else? Patient reports no desire to harm self or others. Onset of symptoms is unknown. 19:18 Method Of Arrival: EMS: [facility] 1 19:18 Acuity: JIGAR 3 ll1 19:20 Initial Sepsis Screen: Does the patient meet any 2 criteria? RR > 20 per min. Yes Does jb4 the patient have a suspected source of infection? No. Patient's initial sepsis screen is negative. Historical: - Allergies: 19:19 NKA; ll1 - PMHx: 19:19 Asthma; ll1 - PSHx: 19:19 None; ll1 Screenin:20 Abuse screen: Denies threats or abuse. Nutritional screening: No deficits noted. jb4 Tuberculosis screening: No symptoms or risk factors identified. Fall Risk None identified. Assessment: 19:20 General: Appears in no apparent distress. uncomfortable, Behavior is calm, cooperative, jb4 appropriate for age. Pain: Complains of pain in chest Pain does not radiate. Pain currently is 4 out of 10 on a pain scale. Quality of pain is described as tightness. Neuro: Level of Consciousness is awake, alert, obeys commands. Cardiovascular: Patient's skin is warm and dry. Respiratory: Airway is patent Respiratory effort is even, unlabored, Respiratory pattern is regular, symmetrical, Breath sounds with wheezes bilaterally. GI: No signs and/or symptoms were reported involving the gastrointestinal system. : No signs and/or symptoms were reported regarding the genitourinary system. EENT: No signs and/or symptoms were reported regarding the EENT system. Derm: Skin is intact, Skin is pink, warm \T\ dry. Musculoskeletal: Circulation, motion, and sensation intact. Range of motion: intact in all extremities. 20:30 Reassessment: Patient appears in no apparent distress at this time. Patient and/or jb4 family updated on plan of care and expected duration. Pain level reassessed. Patient is alert, oriented x 3, equal unlabored respirations, skin warm/dry/pink. Patient states feeling better. Patient states symptoms have improved. 20:30 Respiratory: Airway is patent Respiratory effort is even, unlabored, Respiratory jb4 pattern is regular, symmetrical, Breath sounds are clear bilaterally. Vital Signs: 19:20 BP 113 / 93; Pulse 77; Resp 21; Temp 98.3(O); Pulse Ox 100% on R/A; Pain 4/10; jb4 20:30 BP 115 / 89; Pulse 64; Resp 16; Pulse Ox 100% on R/A; jb4 ED Course: 19:14 Patient arrived in ED. cl3 19:15 Kath[facility] Low [facility]C [facility] kb 19:15 Bryant Hdz MD is Attending Physician. kb 19:19 Triage completed. ll1 19:19 Arm band placed on Patient placed in an exam room, on a stretcher. ll1 19:20 Patient has correct armband on for positive identification. Bed in low position. Call jb4 light in reach. Side rails up X 1. Pulse ox on. NIBP on. 19:23 Gary Russell, RN is Primary Nurse. jb4 19:56 Chest Single View XRAY In Process Unspecified. EDMS 20:54 No provider procedures requiring assistance completed. Patient did not have IV access jb4 during this emergency room visit. Administered Medications: 19:31 Drug: Albuterol 2.5 mg Route: Inhalation; jb4 20:30 Follow up: Response: Wheezing diminished jb4 19:31 Drug: AtroVENT Aerosol 0.5 mg Route: Inhalation; jb4 20:56 Follow up: Response: No adverse reaction; Wheezing diminished jb4 Outcome: 20:43 Discharge ordered by . kb 20:54 Discharged to home ambulatory. jb4 20:54 Condition: stable 20:54 Discharge instructions given to patient, Instructed on discharge instructions, follow up and referral plans. medication usage, Demonstrated understanding of instructions, follow-up care, medications, Prescriptions given X 1. 20:57 Patient left the ED. jb4 Signatures: Dispatcher [employer] EDKathia San, KUMAR-C BICYCLE REPAIR TECHNICIAN-Gary Pagan RN RN jb4 Cristofer Claire cl3 Kieran Claire RN RN ll1
--- NOTE | 2020-05-24 21:13 | RAD REPORT ---
EXAM DESCRIPTION: RAD - Chest Single View - 05/24/2020 7:56 pm CLINICAL HISTORY: DYSPNEA COMPARISON: January 2019 TECHNIQUE: AP portable chest image was obtained 05/24/2020 7:56 pm . FINDINGS: Lungs are clear. Heart and vasculature are normal. No measurable pleural effusion and no p neumothorax. No acute bony abnormality seen. No acute aortic findings suspected. IMPRESSION: No acute cardiopulmonary process. No significant change from comparison study.
[2020-05-25 02:13] VITALS: TEMP 98.3; O2SAT 100
[2020-05-25 02:19] VITALS: BP 115/89
== END 2020-05-24 20:57 | disposition home or self-care (01) ==
LOC: ER 19:13
DX: R06.00 Dyspnea, unspecified (principal)
CPT/HCPCS: 71045; 99284

== ENCOUNTER 2020-06-14 18:22 | Emergency (ER) | payer SELFPAY ==
[2020-06-14] MEDS ORDERED: IPRATROPIUM BROM 0.5MG/2.5ML ONE (18:52)
[2020-06-14] MEDS ORDERED: ALBUTEROL 2.5 MG/3 ML NEB SOL ONE (18:52)
--- NOTE | 2020-06-14 19:20 | RAD REPORT ---
EXAM DESCRIPTION: Hi Single View06/14/2020 7:01 pm CLINICAL HISTORY: cough COMPARISON: April 2020 FINDINGS: The lungs appear clear of acute infiltrate. The heart is normal size IMPRESSION: No acute abnormalities displayed
--- NOTE | 2020-06-14 19:48 | ER ---
Nurse's Notes [facility] Name: Chito Gibbs Age: 25 yrs Sex: Male : 1995 Arrival Date: 06/14/2020 Time: 18:24 Bed 4 Private MD: Diagnosis: Unspecified asthma with (acute) exacerbation Presentation: 06/14 18:24 Chief complaint: EMS states: pt was walking outside and called us for an asthma tw2 exacerbation, states he has a hx of asthma and has been without inhaler for 1 week and just became sob passed 30 minutes, refused A\\T\\A tx on scene, wanted to be brought to ER, vs stable. Coronavirus screen: shortness of breath, Client presents with at least one sign or symptom that may indicate coronavirus-19. Standard/surgical mask placed on the client. Ebola Screen: Patient denies travel to an Ebola-affected area in the 21 days before illness onset. 18:24 Method Of Arrival: EMS: [facility] tw2 18:30 Initial Sepsis Screen: Does the patient meet any 2 criteria? HR > 90 bpm. No. Patient's tw2 initial sepsis screen is negative. Does the patient have a suspected source of infection? No. Patient's initial sepsis screen is negative. Risk Assessment: Do you want to hurt yourself or someone else? Patient reports no desire to harm self or others. Onset of symptoms was June 14, 2020. 18:30 Acuity: JIGAR 3 tw2 Triage Assessment: 18:25 General: Appears in no apparent distress. Behavior is calm, cooperative, appropriate tw2 for age. Pain: Denies pain. EENT: No signs and/or symptoms were reported regarding the EENT system. Neuro: Level of Consciousness is awake, alert, obeys commands, Oriented to person, place, time, situation. Cardiovascular: Heart tones S1 S2 Patient's skin is warm and dry. Respiratory: Airway is patent Respiratory effort is even, unlabored, Respiratory pattern is regular, symmetrical, Breath sounds with wheezes bilaterally. GI: No signs and/or symptoms were reported involving the gastrointestinal system. Abdomen is flat, Bowel sounds present X 4 quads. : No signs and/or symptoms were reported regarding the genitourinary system. Derm: No signs and/or symptoms reported regarding the dermatologic system. Musculoskeletal: Range of motion: intact in all extremities. Historical: - Allergies: 18:33 NKA; tw2 - Home Meds: 18:33 Albuterol Inhl [Active]; tw2 - PMHx: 18:33 Asthma; tw2 - PSHx: 18:33 None; tw2 - Immunization history:: Adult Immunizations. - Social history:: Smoking status: . Screenin:36 Abuse screen: Denies threats or abuse. Nutritional screening: No deficits noted. tw2 Tuberculosis screening: No symptoms or risk factors identified. Fall Risk None identified. Assessment: 18:28 Reassessment: see triage assessment. tw2 18:30 Reassessment: unable to get BP at this time, pt states "i got up to plug in my phone". tw2 18:32 Reassessment: provider at bedside at this time. tw2 18:42 Reassessment: pt refusing to take hoodie off, states "well when are they coming cause tw2 im cold", pt offered extra warm blankets and gown, pt refused, pt educated as to poc, pt still refusing at this time. Vital Signs: 18:24 Pulse 98; Resp 18; Temp 98.3(O); Pulse Ox 98% on R/A; Weight 74.84 kg (R); Height 5 ft. tw2 9 in. (175.26 cm); 18:30 BP 122 / 80; tw2 19:46 BP 134 / 67; Pulse 100; Resp 18; Temp 98; Pulse Ox 98% ; rv 18:24 Body Mass Index 24.37 (74.84 kg, 175.26 cm) tw2 ED Course: 18:24 Patient arrived in ED. tw2 18:24 Bed in low position. Pulse ox on. NIBP on. tw2 18:26 Kathia Low FNP-C is PHCP. kb 18:26 Tramaine Jeff MD is Attending Physician. kb 18:32 Triage completed. tw2 18:33 Arm band placed on. tw2 18:36 Daniella Helm, RN is Primary Nurse. tw2 18:58 Chest Single View XRAY In Process Unspecified. EDMS 19:13 Primary Nurse role handed off by Daniella Helm, RN mw2 19:14 Manjit Orozco, ELVI is Primary Nurse. rv 19:46 No provider procedures requiring assistance completed. Patient did not have IV access rv during this emergency room visit. Administered Medications: 18:43 Drug: DuoNeb (3:1) (2.5 mg - 0.5 mg) 3 ml Route: Nebulizer; tw2 19:46 Follow up: Response: No adverse reaction; Marked relief of symptoms rv Outcome: 19:48 Discharge ordered by . elieser 19:55 Discharged to home ambulatory. rv 19:55 Condition: improved 19:55 Discharge instructions given to patient, Instructed on discharge instructions, follow up and referral plans. medication usage, Demonstrated understanding of instructions, follow-up care, medications, Prescriptions given X 1. 19:55 Patient left the ED. rv Signatures: Dispatcher [employer] EDMS Kathia Low, WEIGHER AND CHARGER-C WEIGHER AND CHARGER-Daniella Alvarez, ELVI RN 2 Annia Olivera 2 Manjit Orozco RN RN rv
--- NOTE | 2020-06-14 19:48 | EDPHYS ---
Physician Documentation [facility] Name: Chito Gibbs Age: 25 yrs Sex: Male : 1995 Arrival Date: 06/14/2020 Time: 18:24 Bed 4 Private MD: ED Physician Tramaine Jeff HPI: 06/14 19:59 This 25 yrs old Black Male presents to ER via EMS with complaints of Asthma kb Exacerbation. 19:59 The patient presents to the emergency department with wheezing, Current therapy: kb albuterol inhaler. Onset: The symptoms/episode began/occurred 30 minute(s) ago. Modifying factors: The symptoms are alleviated by nothing, the symptoms are aggravated by nothing. Associated signs and symptoms: The patient has no apparent associated signs or symptoms. Severity of symptoms: At their worst the symptoms were mild moderate in the emergency department the symptoms are unchanged. The patient has experienced similar episodes in the past. The patient has not recently seen a physician. 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 Pt has been out of his inhaler for a few days. Historical: - Allergies: 18:33 NKA; tw2 - Home Meds: 18:33 Albuterol Inhl [Active]; tw2 - PMHx: 18:33 Asthma; tw2 - PSHx: 18:33 None; tw2 - Immunization history:: Adult Immunizations. - Social history:: Smoking status: . ROS: 19:57 Constitutional: Negative for fever, chills, and weight loss, Cardiovascular: Negative kb for chest pain, palpitations, and edema, Abdomen/GI: Negative for abdominal pain, nausea, vomiting, diarrhea, and constipation, MS/Extremity: Negative for injury and deformity, Skin: Negative for injury, rash, and discoloration, Neuro: Negative for headache, weakness, numbness, tingling, and seizure. 19:57 Respiratory: Positive for cough, shortness of breath, Negative for dyspnea on exertion, hemoptysis, orthopnea, pleurisy, sputum production, wheezing. Exam: 19:57 Constitutional: This is a well developed, well nourished patient who is awake, alert, kb and in no acute distress. Head/Face: Normocephalic, atraumatic. Chest/axilla: Normal chest wall appearance and motion. Nontender with no deformity. No lesions are appreciated. Cardiovascular: Regular rate and rhythm with a normal S1 and S2. No gallops, murmurs, or rubs. Normal PMI, no JVD. No pulse deficits. Abdomen/GI: Soft, non-tender, with normal bowel sounds. No distension or tympany. No guarding or rebound. No evidence of tenderness throughout. Skin: Warm, dry with normal turgor. Normal color with no rashes, no lesions, and no evidence of cellulitis. MS/ Extremity: Pulses equal, no cyanosis. Neurovascular intact. Full, normal range of motion. Neuro: Awake and alert, GCS 15, oriented to person, place, time, and situation. Cranial nerves II-XII grossly intact. Motor strength 5/5 in all extremities. Sensory grossly intact. Cerebellar exam normal. Normal gait. 19:57 Respiratory: the patient does not display signs of respiratory distress, Respirations: normal, Breath sounds: wheezing: inspiratory that is mild, is heard in the left posterior lower lobe. Vital Signs: 18:24 Pulse 98; Resp 18; Temp 98.3(O); Pulse Ox 98% on R/A; Weight 74.84 kg (R); Height 5 ft. tw2 9 in. (175.26 cm); 18:30 BP 122 / 80; tw2 19:46 BP 134 / 67; Pulse 100; Resp 18; Temp 98; Pulse Ox 98% ; rv 18:24 Body Mass Index 24.37 (74.84 kg, 175.26 cm) tw2 MDM: 18:27 Patient medically screened. kb 19:58 Data reviewed: vital signs, nurses notes. Data interpreted: Pulse oximetry: on room air kb is 98 %. Interpretation: normal. Counseling: I had a detailed discussion with the patient and/or guardian regarding: the historical points, exam findings, and any diagnostic results supporting the discharge/admit diagnosis, radiology results, the need for outpatient follow up, a family practitioner, to return to the emergency department if symptoms worsen or persist or if there are any questions or concerns that arise at home. 19:59 ED course: Pt feeling better after treatment and reports he is ready to go. kb 06/14 18:35 Order name: Chest Single View XRAY; Complete Time: 19:24 kb Administered Medications: 18:43 Drug: DuoNeb (3:1) (2.5 mg - 0.5 mg) 3 ml Route: Nebulizer; tw2 19:46 Follow up: Response: No adverse reaction; Marked relief of symptoms rv Disposition: 06/15 10:06 Co-signature as Attending Physician, Tramaine Jeff MD I agree with the assessment and dali plan of care. Disposition: 06/14/20 19:48 Discharged to Home. Impression: Unspecified asthma with (acute) exacerbation. - Condition is Stable. - Discharge Instructions: Asthma, Adult, [id number]. - Prescriptions for Albuterol Sulfate 90 mcg/actuation - inhale 1-2 puff by INHALATION route every 4-6 hours; 1 Inhaler. - Medication Reconciliation Form, Thank You Letter, Antibiotic Education, Prescription Opioid Use form. - Follow up: Emergency Department; When: As needed; Reason: Worsening of condition. Follow up: Private Physician; When: 2 - 3 days; Reason: Recheck today's complaints, Continuance of care, Re-evaluation by your physician. Signatures: Dispatcher [employer] EDKathia San, SUPERVISOR HOME RESTORATION SERVICE-C SUPERVISOR HOME RESTORATION SERVICE-Tramaine Ramirez MD MD cha Wise, Tara, RN RN tw2 Manjit Orozco, RN RN rv Corrections: (The following items were deleted from the chart) 06/14 19:55 19:48 06/14/2020 19:48 Discharged to Home. Impression: Unspecified asthma with (acute) rv exacerbation. Condition is Stable. Forms are Medication Reconciliation Form, Thank You Letter, Antibiotic Education, Prescription Opioid Use. Follow up: Emergency Department; When: As needed; Reason: Worsening of condition. Follow up: Private Physician; When: 2 - 3 days; Reason: Recheck today's complaints, Continuance of care, Re-evaluation by your physician. kb
[2020-06-16 06:06] VITALS: O2SAT 98
[2020-06-16 06:13] VITALS: BP 134/67; TEMP 98
== END 2020-06-14 19:55 | disposition home or self-care (01) ==
LOC: ER 18:22
DX: J45.901 Unspecified asthma with (acute) exacerbation (principal)
CPT/HCPCS: 71045; 99284

== ENCOUNTER 2020-06-18 | Emergency (ER) | payer SELFPAY ==
--- NOTE | 2020-06-18 14:09 | EDPHYS ---
Physician Documentation [facility] Name: Chito Gibbs Age: 25 yrs Sex: Male : 1995 Arrival Date: 06/18/2020 Time: 13:48 Bed 13 Private MD: ED Physician Bolivar Waters HPI: 06/18 13:52 This 25 yrs old Black Male presents to ER via EMS with complaints of Hallucinations. rn 13:52 Reports smoked Domingo about 1 hour [employer]PER[employer], since then has been seeing dots and having rn trouble concentrating, denies other drug use or ETOH. No daily medication or medication change. No fever/neck pain or stiffness/vomiting/diarrhea/chest pain/cough/sob.. Onset: The symptoms/episode began/occurred 1 hour(s) ago. Severity of symptoms: At their worst the symptoms were mild in the emergency department the symptoms are unchanged. The patient has not experienced similar symptoms in the past. The patient has not recently seen a physician. Historical: - Allergies: 13:50 NKA; sv - PMHx: 13:50 Asthma; sv - PSHx: 13:50 None; sv - Family history:: not pertinent. - Hospitalizations: : No recent hospitalization is reported. ROS: 13:52 Constitutional: Negative for fever, chills, and weight loss, Eyes: Negative for injury, rn pain, redness, and discharge, Neck: Negative for injury, pain, and swelling, Cardiovascular: Negative for chest pain, palpitations, and edema, Respiratory: Negative for shortness of breath, cough, wheezing, and pleuritic chest pain, Abdomen/GI: Negative for abdominal pain, nausea, vomiting, diarrhea, and constipation, Back: Negative for injury and pain, MS/Extremity: Negative for injury and deformity, Skin: Negative for injury, rash, and discoloration, Neuro: Negative for headache, weakness, numbness, tingling, and seizure. Exam: 13:52 Constitutional: This is a well developed, well nourished patient who is awake, alert, rn malodorous Head/Face: Normocephalic, atraumatic. ENT: dry MM Neck: Trachea midline, no masses palpated. Supple, full range of motion without nuchal rigidity, or vertebral point tenderness. No Meningismus. Cardiovascular: Regular rate and rhythm. No pulse deficits. Respiratory: No increased work of breathing, no retractions or nasal flaring. Abdomen/GI: soft, non-tender MS/ Extremity: Pulses equal, no cyanosis. Neuro: Awake and alert, GCS 15, oriented to person, place, time, and situation. Cranial nerves II-XII grossly intact. Motor strength 5/5 in all extremities. Sensory grossly intact. Vital Signs: 13:50 BP 124 / 89; Pulse 87; Resp 16; Temp 98.6; Pulse Ox 99% ; Weight 74 kg; Height 5 ft. 9 sv in. (175.26 cm); 13:50 Body Mass Index 24.09 (74.00 kg, 175.26 cm) sv MDM: 13:49 Patient medically screened. rn 14:07 Differential Diagnosis adverse reaction to synthetic marijuana. Data reviewed: vital rn signs, nurses notes, and as a result, I will discharge patient. Counseling: I had a detailed discussion with the patient and/or guardian regarding: the historical points, exam findings, and any diagnostic results supporting the discharge/admit diagnosis, the need for outpatient follow up, to return to the emergency department if symptoms worsen or persist or if there are any questions or concerns that arise at home. ED course: Pt became combative and arguing with police, told them he doesn't emergently need IVF if can drink water, otherwise is result of drug use, will medically clear for prison. . Administered Medications: 14:12 Not Given (Physician Discretion): NS 0.9% 1000 ml IV at 1000 ml once sv Disposition: 06/18/20 14:08 Discharged to Home. Impression: Adverse effect of synthetic marijuana. - Condition is Stable. - Discharge Instructions: What You Need To Know About Illegal Drug Use and Dependence, Youth. - Medication Reconciliation Form, Thank You Letter, Antibiotic Education, Prescription Opioid Use form. - Follow up: Private Physician; When: As needed; Reason: Recheck today's complaints, Re-evaluation by your physician. - Problem is new. - Symptoms have improved. Signatures: Malorie Stoddard RN RN sv Bolivar Waters MD MD morning news producer: (The following items were deleted from the chart) 14:13 13:50 IV Saline Lock ordered. rn floyd 14:14 14:08 06/18/2020 14:08 Discharged to Home. Impression: Adverse effect of synthetic sv marijuana. Condition is Stable. Forms are Medication Reconciliation Form, Thank You Letter, Antibiotic Education, Prescription Opioid Use. Follow up: Private Physician; When: As needed; Reason: Recheck today's complaints, Re-evaluation by your physician. Problem is new. Symptoms have improved. rn
--- NOTE | 2020-06-18 14:09 | ER ---
Nurse's Notes [facility] Name: Chito [facility] Age: 25 yrs Sex: Male : 1995 Arrival Date: 06/18/2020 Time: 13:48 Bed 13 Private MD: Diagnosis: Adverse effect of synthetic marijuana Presentation: 06/18 13:48 Chief complaint: EMS states: pt smoke Domingo this morning around 0900 and has been seeing sv "spots" since then. [employer] at bedside. Risk Assessment: Do you want to hurt yourself or someone else? Patient reports no desire to harm self or others. Onset of symptoms was June 18, 2020. 13:48 Method Of Arrival: EMS: [facility] sv 13:48 Acuity: JIGAR 4 sv 13:50 Coronavirus screen: Client denies travel out of the [place] in the last 14 days. At this sv time, the client does not indicate any symptoms associated with coronavirus-19. Ebola Screen: No symptoms or risks identified at this time. Initial Sepsis Screen: Does the patient meet any 2 criteria? No. Patient's initial sepsis screen is negative. Does the patient have a suspected source of infection? No. Patient's initial sepsis screen is negative. Triage Assessment: 13:48 General: Appears in no apparent distress. comfortable, well developed, Behavior is sv cooperative, appropriate for age. Pain: Denies pain. Neuro: Level of Consciousness is awake, alert, obeys commands, Oriented to person, place, time, situation, Gait is steady. Respiratory: Respiratory effort is even, unlabored, Respiratory pattern is regular, symmetrical. Historical: - Allergies: 13:50 NKA; sv - PMHx: 13:50 Asthma; sv - PSHx: 13:50 None; sv - Family history:: not pertinent. - Hospitalizations: : No recent hospitalization is reported. Screenin:49 Abuse screen: Denies threats or abuse. Nutritional screening: No deficits noted. tw2 Tuberculosis screening: No symptoms or risk factors identified. Fall Risk None identified. Assessment: 13:49 Reassessment: provider at bedside at this time. tw2 Vital Signs: 13:50 BP 124 / 89; Pulse 87; Resp 16; Temp 98.6; Pulse Ox 99% ; Weight 74 kg; Height 5 ft. 9 sv in. (175.26 cm); 13:50 Body Mass Index 24.09 (74.00 kg, 175.26 cm) sv ED Course: 13:48 Patient arrived in ED. vg1 13:49 Bolivar Waters MD is Attending Physician. rn 13:49 Triage completed. sv 13:50 Arm band placed on Patient placed in an exam room, on a stretcher. sv 13:50 Patient has correct armband on for positive identification. Placed in gown. Bed in low sv position. Side rails up X2. 13:52 Lulu Chawla, RN is Primary Nurse. vg1 14:13 No provider procedures requiring assistance completed. Patient did not have IV access sv during this emergency room visit. Administered Medications: 14:12 Not Given (Physician Discretion): NS 0.9% 1000 ml IV at 1000 ml once sv Outcome: 14:08 Discharge ordered by . rn 14:13 Discharged to Law Enforcement sv 14:13 Condition: stable 14:13 Discharge instructions given to police, Instructed on [employer] left before getting discharge paperwork. Pt left in handcuffs 14:14 Patient left the ED. sv Signatures: Malorie Stoddard, RN RN sv Bolivar Waters MD MD rn Wise, Tara, RN RN tw2 Lulu Chawla RN RN vg1
== END 2020-06-18 14:14 | disposition home or self-care (01) ==
CPT/HCPCS: 99283

== ENCOUNTER 2020-06-18 16:00 | Emergency (ER) | payer SELFPAY ==
[2020-06-18] MEDS ORDERED: TETANUS & DIPHTHERIA TOX,ADULT 0.5 ML VIAL ONE (16:40)
--- NOTE | 2020-06-18 17:11 | RAD REPORT ---
EXAM DESCRIPTION: RAD - Hand Right 3 View - 06/18/2020 4:38 pm CLINICAL HISTORY: hand injury Pain and laceration COMPARISON: No comparisons FINDINGS: No fracture or radiopaque foreign body is seen.
--- NOTE | 2020-06-18 17:31 | EDPHYS ---
Physician Documentation [facility] Name: Chito Gibbs Age: 25 yrs Sex: Male : 1995 Arrival Date: 06/18/2020 Time: 16:03 Bed 14 Private MD: ED Physician Bolivar Waters Historical: - Allergies: 06/18 16:08 NKA; vg1 - Home Meds: 16:08 Albuterol Inhl [Active]; vg1 - PMHx: 16:08 Asthma; vg1 - Immunization history:: Adult Immunizations up to date, Flu vaccine is not up to date. It has been more than one year since last vaccine. - Social history:: Smoking status: Patient reports the use of cigarette tobacco products, denies chronic smoking, but will smoke occasionally. Vital Signs: 15:58 BP 125 / 87; Pulse 81; Resp 16; Temp 99.4(TE); Pulse Ox 98% on R/A; Weight 77.11 kg; vg1 Height 5 ft. 9 in. (175.26 cm); Pain 8/10; 16:30 BP 113 / 73; Pulse 61; Resp 14; Pulse Ox 98% on R/A; vg1 17:00 BP 109 / 83; Pulse 60; Resp 14; Pulse Ox 98% on R/A; vg1 17:30 BP 116 / 83; Pulse 66; Resp 14; Pulse Ox 97% on R/A; vg1 15:58 Body Mass Index 25.10 (77.11 kg, 175.26 cm) vg1 MDM: 16:15 Patient medically screened. [facility] 17:30 Data reviewed: vital signs, nurses notes. Counseling: I had a detailed discussion with hemalatha the patient and/or guardian regarding: the historical points, exam findings, and any diagnostic results supporting the discharge/admit diagnosis, radiology results, the need for outpatient follow up, to return to the emergency department if symptoms worsen or persist or if there are any questions or concerns that arise at home. 06/18 16:18 Order name: Hand Right 3 View XRAY; Complete Time: 17:29 hemalatha Administered Medications: 16:41 Drug: Tetanus-Diphtheria Toxoid Adult 0.5 ml {Wallpaper Remover Steam: [employer]. Exp: vg1 10/14/2021. Lot #: [id number]. } Route: IM; Site: right deltoid; 18:00 Follow up: Response: No adverse reaction vg1 Disposition: 18:33 Co-signature as Attending Physician, Bolivar Waters MD. rn Disposition: 06/18/20 17:30 Discharged to Home. Impression: Contusion of right hand, Laceration of Right Hand. - Condition is Stable. - Discharge Instructions: Hand Contusion, Nonsutured Laceration Care. - Medication Reconciliation Form, Thank You Letter, Antibiotic Education, Prescription Opioid Use form. - Follow up: Private Physician; When: 2 - 3 days; Reason: Recheck today's complaints, Continuance of care, Re-evaluation by your physician. Addendum: 07/13/2020 09:35 Addendum: This is a 25 year old male with a history of asthma that presents to the ED j with complaints of injury to the right hand after punching a cell door. Denies other injury. ROS Positive for hand pain, skin laceration, otherwise negative. PE HEENT: Atraumatic, GEN: NAD, Cardio: RRR, RESP: Nonlabord, MS: FROM appreciated to the right hand, < 2 sec dist cap refill, compartments are soft, NVI, PSYCH: Calm, pleasant, Neuro: A x O x 3. Signatures: Dispatcher [employer] EDMS Scott Malave PA PA jmm Nieto, Roman, MD MD rn Garcia, Victoria, RN RN vg1 Corrections: (The following items were deleted from the chart) 06/18 18:00 17:30 06/18/2020 17:30 Discharged to Home. Impression: Contusion of right hand; vg1 Laceration of Right Hand. Condition is Stable. Forms are Medication Reconciliation Form, Thank You Letter, Antibiotic Education, Prescription Opioid Use. Follow up: Private Physician; When: 2 - 3 days; Reason: Recheck today's complaints, Continuance of care, Re-evaluation by your physician. hemalatha
--- NOTE | 2020-06-18 17:31 | ER ---
Nurse's Notes [facility] Name: Chito Gibbs Age: 25 yrs Sex: Male : 1995 Arrival Date: 06/18/2020 Time: 16:03 Bed 14 Private MD: Diagnosis: Contusion of right hand;Laceration of Right Hand Presentation: 06/18 15:58 Chief complaint: EMS states: Laceration to left middle finger and left ring finger by vg1 punching the cell door. 15:58 Method Of Arrival: EMS: [facility] vg1 15:58 Coronavirus screen: Client denies travel out of the [place] in the last 14 days. Ebola vg1 Screen: Patient negative for fever greater than or equal to 101.5 degrees Fahrenheit, and additional compatible Ebola Virus Disease symptoms. Complicating Factors: There are no complicating factors for this patient. Initial Sepsis Screen: Does the patient meet any 2 criteria? No. Patient's initial sepsis screen is negative. Does the patient have a suspected source of infection? No. Patient's initial sepsis screen is negative. Risk Assessment: Do you want to hurt yourself or someone else? Patient reports no desire to harm self or others. Onset of symptoms was June 18, 2020. 15:58 Acuity: JIGAR 4 vg1 Historical: - Allergies: 16:08 NKA; vg1 - Home Meds: 16:08 Albuterol Inhl [Active]; vg1 - PMHx: 16:08 Asthma; vg1 - Immunization history:: Adult Immunizations up to date, Flu vaccine is not up to date. It has been more than one year since last vaccine. - Social history:: Smoking status: Patient reports the use of cigarette tobacco products, denies chronic smoking, but will smoke occasionally. Screenin:10 Abuse screen: Denies threats or abuse. Nutritional screening: No deficits noted. vg1 Tuberculosis screening: No symptoms or risk factors identified. Fall Risk No fall in past 12 months (0 pts). No secondary diagnosis (0 pts). No IV (0 pts). Ambulatory Aid- None/Bed Rest/Nurse Assist (0 pts). Gait- Normal/Bed Rest/Wheelchair (0 pts) Mental Status- Oriented to own ability (0 pts). Total Moore Fall Scale indicates No Risk (0-24 pts). Assessment: 16:09 General: Appears in no apparent distress. comfortable, Behavior is calm, cooperative. vg1 Pain: Complains of pain in left hand Pain currently is 8 out of 10 on a pain scale. Quality of pain is described as numb, Pain began 1 hour ago. Neuro: Level of Consciousness is awake, alert, obeys commands, Oriented to person, place, time, situation. Cardiovascular: Patient's skin is warm and dry. Respiratory: Airway is patent Respiratory effort is even, unlabored, Respiratory pattern is regular, symmetrical. GI: No signs and/or symptoms were reported involving the gastrointestinal system. : No signs and/or symptoms were reported regarding the genitourinary system. EENT: No signs and/or symptoms were reported regarding the EENT system. Derm: Skin is pink, warm \T\ dry. Musculoskeletal: Range of motion: limited in left middle finger and ring finger. Injury Description: Laceration is clean, not bleeding. 17:00 Reassessment: Patient appears in no apparent distress at this time. No changes from vg1 previously documented assessment. Patient is alert, oriented x 3, equal unlabored respirations, skin warm/dry/pink. Vital Signs: 15:58 BP 125 / 87; Pulse 81; Resp 16; Temp 99.4(TE); Pulse Ox 98% on R/A; Weight 77.11 kg; vg1 Height 5 ft. 9 in. (175.26 cm); Pain 8/10; 16:30 BP 113 / 73; Pulse 61; Resp 14; Pulse Ox 98% on R/A; vg1 17:00 BP 109 / 83; Pulse 60; Resp 14; Pulse Ox 98% on R/A; vg1 17:30 BP 116 / 83; Pulse 66; Resp 14; Pulse Ox 97% on R/A; vg1 15:58 Body Mass Index 25.10 (77.11 kg, 175.26 cm) vg1 ED Course: 16:03 Patient arrived in ED. 1 16:04 Scott Malave PA is PHCP. [facility] 16:04 Bolivar Waters MD is Attending Physician. [facility] 16:08 Triage completed. vg1 16:10 Arm band placed on. vg1 16:10 Patient has correct armband on for positive identification. Bed in low position. Call [facility] light in reach. Side rails up X 1. [place] police and fire dispatcher at bedside. 16:16 Lulu Chawla, RN is Primary Nurse. vg1 16:28 Xray at bedside. vg1 16:42 Hand Right 3 View XRAY In Process Unspecified. EDMS 17:58 Dressings: non-adherent dressing x 1 left hand. vg1 17:59 No provider procedures requiring assistance completed. Patient did not have IV access vg1 during this emergency room visit. Administered Medications: 16:41 Drug: Tetanus-Diphtheria Toxoid Adult 0.5 ml {Land Development Project Manager: [employer]. Exp: vg1 10/14/2021. Lot #: [id number]. } Route: IM; Site: right deltoid; 18:00 Follow up: Response: No adverse reaction vg1 Outcome: 17:30 Discharge ordered by . hemalatha 17:59 Discharged to [employer] vg1 17:59 Condition: stable 17:59 Discharge instructions given to patient, police, Instructed on discharge instructions, follow up and referral plans. Demonstrated understanding of instructions, follow-up care. 18:00 Patient left the ED. vg1 Signatures: Dispatcher [employer] EDMS Scott Malave PA PA Lulu Whitehead, RN RN vg1
[2020-06-20 13:40] VITALS: BP 116/83; O2SAT 97
== END 2020-06-18 18:00 | disposition home or self-care (01) ==
LOC: ER 16:00
DX: S60.221A Contusion of right hand, initial encounter (principal); S61.411A Laceration without foreign body of right hand, initial encounter; J45.909 Unspecified asthma, uncomplicated; F17.210 Nicotine dependence, cigarettes, uncomplicated; W22.8XXA Striking against or struck by other objects, initial encounter; Y93.9 Activity, unspecified; Y92.9 Unspecified place or not applicable; Z23 Encounter for immunization
CPT/HCPCS: 90471; 90714; 99284

== ENCOUNTER 2024-04-27 16:10 | Emergency (ER) | payer SELFPAY ==
[2024-04-27] MEDS ORDERED: KETOROLAC 30 MG/ML INJ ONE (17:53)
[2024-04-27 17:54] LABS: Absolute Basophils 0.1 K/uL (0-0.5); Absolute Eosinophils 0.2 K/uL (0-0.5); Absolute Lymphocytes (CBC) 1.9 K/uL (0.7-4.9); Absolute Monocytes 0.5 K/uL (0.1-1.3); Absolute Neutrophil 6.1 K/uL (1.8-8.0); Basophils % 0.9 % (0-1.3); Eosinophils % 1.9 % (0-4.4); Hematocrit 39.7 % (39.6-49.0); Hemoglobin 13.9 g/dL (13.6-17.9); Lymphocytes % 21.5 % (15.3-44.8); MCV 88.3 fL (80-100); MPV 8.4 fL (7.6-11.3); Monocytes % 5.6 % (3.3-12.3); Neutrophils % 70.1 % (41.7-73.7); Nucleated Red Blood Cells % 0.1 % (0-0); Platelets 226 thou/uL (152-406); RBC Red Blood Cell Count 4.49 M/uL (4.33-5.43); Red Cell Distribution Width 13.1 % (12.1-15.2)
[2024-04-27 18:15] LABS: Albumin 3.7 g/dL (3.4-5.0); Albumin/Globulin Ratio 1.1 (1.1-1.8); Anion Gap 7.8 mEq/L (5.0-15.0); Bilirubin Direct 0.3 mg/dL (0-0.2); Bilirubin Total 1.3 mg/dL (0.2-1.0); Globulin 3.3 g/dL (2.3-3.5); Potassium 2.8 mEq/L (3.5-5.1); Troponin High Sensitivity 17.5 pg/mL (<58.9)
--- NOTE | 2024-04-27 18:32 | EDPHYS ---
Physician Documentation [facility] Name: Chito Gibbs Age: 28 yrs Sex: Male : 1995 Arrival Date: 04/27/2024 Time: 16:10 Bed 14 Private MD: ED Physician Mary Soto HPI: 04/27 17:56 This 28 yrs old Black Male presents to ER via [employer] with complaints of chest rt pain. 17:56 Patient presents to the ED with chest pain starting just prior to arrival. Patient was rt sitting in long term when this happened. Orts pain is worse with inspiration. Denies any difficulty breathing. Denies of acute complaints, symptoms are moderate in severity, no other aggravating or alleviating factors.. Historical: - Allergies: 16:37 NKA; ar6 - Immunization history:: Adult Immunizations up to date. - Infectious Disease History:: Denies. - Social history:: Smoking status: Patient reports the use of cigarette tobacco products, 1.5 packs per day. - Family history:: not pertinent. ROS: 17:56 Constitutional: Negative for fever, chills, and weight loss, Respiratory: Negative for rt shortness of breath, cough, wheezing, and pleuritic chest pain, Abdomen/GI: Negative for abdominal pain, nausea, vomiting, diarrhea, and constipation, MS/Extremity: Negative for injury and deformity, Skin: Negative for injury, rash, and discoloration, Neuro: Negative for headache, weakness, numbness, tingling, and seizure, 17:56 Cardiovascular: Positive for chest pain, Negative for edema, Exam: 17:56 Constitutional: This is a well developed, well nourished patient who is awake, alert, rt and in no acute distress. Head/Face: Normocephalic, atraumatic. Cardiovascular: Regular rate and rhythm with a normal S1 and S2. No gallops, murmurs, or rubs. Normal PMI, no JVD. No pulse deficits. Respiratory: Lungs have equal breath sounds bilaterally, clear to auscultation and percussion. No rales, rhonchi or wheezes noted. No increased work of breathing, no retractions or nasal flaring. Abdomen/GI: Soft, non-tender, with normal bowel sounds. No distension or tympany. No guarding or rebound. No evidence of tenderness throughout. Skin: Warm, dry with normal turgor. Normal color with no rashes, no lesions, and no evidence of cellulitis. MS/ Extremity: Pulses equal, no cyanosis. Neurovascular intact. Full, normal range of motion. Neuro: Awake and alert, GCS 15, oriented to person, place, time, and situation. Cranial nerves II-XII grossly intact. Motor strength 5/5 in all extremities. Sensory grossly intact. Cerebellar exam normal. Normal gait. 17:56 Chest/axilla: Palpation over anterior chest wall reproduces chest pain. 17:56 ECG was reviewed by the Attending Physician. Vital Signs: 16:30 BP 113 / 78; Pulse 62; Resp 18; Temp 98.2; Pulse Ox 100% on R/A; Weight 72.57 kg; ar6 Height 5 ft. 9 in. ; Pain 5/10; 16:37 BP 113 / 78; Pulse 62; Resp 18; Pulse Ox 100% ; ar6 17:58 BP 108 / 76; Pulse 58; Resp 18; Pulse Ox 98% on R/A; ph 18:46 BP 107 / 70; Pulse 61; Resp 18; Pulse Ox 99% on R/A; ar6 16:30 Body Mass Index 23.63 (72.57 kg, 175.26 cm) ar6 16:30 Pain Scale: Adult ar6 MDM: 16:37 Medical Screening Exam initiated rt 18:31 ED course: Patient signed out to me by Dr. Perez. 28-year-old male with chest pain sp3 with labs pending. Troponin and remainder of labs negative except for mild drop in potassium which we will replenish orally. Patient with normal vital signs and we will safely discharge home at this time.. 04/27 16:38 Order name: Basic Metabolic Panel; Complete Time: 18:30 rt 04/27 16:38 Order name: CBC with Diff; Complete Time: 17:56 rt 04/27 16:38 Order name: LFT's; Complete Time: 18:30 rt 04/27 16:38 Order name: Troponin HS; Complete Time: 18:30 rt 04/27 16:38 Order name: XRAY Chest (1 view) rt 04/27 16:38 Order name: Cardiac monitoring; Complete Time: 17:19 rt 04/27 16:38 Order name: EKG - Nurse/Tech; Complete Time: 17:57 rt 04/27 16:38 Order name: IV Saline Lock; Complete Time: 17:57 rt 04/27 16:38 Order name: Labs collected and sent; Complete Time: 17:57 rt 04/27 16:38 Order name: O2 Per Protocol; Complete Time: 17:19 rt 04/27 16:38 Order name: O2 Sat Monitoring; Complete Time: 17:19 rt EC:56 Rate is 59 beats/min. Rhythm is regular, Sinus bradycardia with No ectopy. QRS Hagan is rt Normal. LA interval is normal. QRS interval is normal. QT interval is normal. T waves are Normal. No ST changes noted. Interpreted by me. Administered Medications: 17:57 Drug: Ketorolac IM 15 mg IM once Route: IM; Site: right deltoid; ph 18:47 Follow up: Response: No adverse reaction ar6 18:46 Drug: Potassium Chloride PO Liquid 40 mEq PO once Route: PO; ar6 18:47 Follow up: Response: No adverse reaction ar6 Disposition Summary: 04/27/24 18:32 Discharge Ordered Notes: Location: Home sp3 Condition: Stable sp3 Diagnosis - Chest pain, hypokalemia sp3 Followup: sp3 - With: Private Physician - When: Upon discharge from the Emergency Department - Reason: Recheck today's complaints Discharge Instructions: - Discharge Summary Sheet sp3 - Nonspecific Chest Pain, Adult sp3 Forms: - Medication Reconciliation Form sp3 - Antibiotic Education sp3 - Prescription Opioid Use sp3 - Patient Portal Instructions sp3 - Leadership Thank You Letter sp3 Signatures: Dispatcher [employer] Kathy Patel RN RN Mary Soto MD MD sp3 Andre Armstrong MD MD rt Shelby Teixeira RN RN ar6 Corrections: (The following items were deleted from the chart) 16:38 16:37 PMHx: Asthma; ar6 ar6
--- NOTE | 2024-04-27 18:32 | ER ---
Nurse's Notes [facility] Name: Chito Gibbs Age: 28 yrs Sex: Male : 1995 Arrival Date: 04/27/2024 Time: 16:10 Bed 14 Private MD: Diagnosis: Chest pain, hypokalemia Presentation: 04/27 16:30 Chief complaint: Patient states: Chest Pain. Coronavirus screen: Client denies travel ar6 out of the [place] in the last 14 days. At this time, the client does not indicate any symptoms associated with coronavirus-19. Ebola Screen: Patient negative for fever greater than or equal to 101.5 degrees Fahrenheit, and additional compatible Ebola Virus Disease symptoms Patient denies exposure to infectious person. Patient denies travel to an Ebola-affected area in the 21 days before illness onset. No symptoms or risks identified at this time. Initial Sepsis Screen: Does the patient meet any 2 criteria? No. Patient's initial sepsis screen is negative. Does the patient have a suspected source of infection? No. Patient's initial sepsis screen is negative. Risk Assessment: Do you want to hurt yourself or someone else? Patient reports no desire to harm self or others. Onset of symptoms was April 27, 2024 at 16:00. 16:30 Method Of Arrival: Law Enforcement: [place] [id number] 16:30 Acuity: JIGAR 3 ar6 Triage Assessment: 16:37 General: Appears in no apparent distress. comfortable, Behavior is calm, cooperative. ar6 Pain: Complains of pain in chest Pain currently is 5 out of 10 on a pain scale. EENT: Oral mucosa is moist. Neuro: Level of Consciousness is awake, alert, obeys commands, Oriented to person, place, time, situation. Cardiovascular: Reports chest pain, Denies nausea, shortness of breath, vomiting, Capillary refill < 3 seconds Rhythm is regular. Respiratory: Airway is patent. GI: Abdomen is flat, non-distended. : No signs and/or symptoms were reported regarding the genitourinary system. Derm: Skin is intact, is healthy with good turgor, Skin is dry, Skin is pink, warm \T\ dry. Musculoskeletal: No signs and/or symptoms reported regarding the musculoskeletal system. Historical: - Allergies: 16:37 NKA; ar6 - Immunization history:: Adult Immunizations up to date. - Infectious Disease History:: Denies. - Social history:: Smoking status: Patient reports the use of cigarette tobacco products, 1.5 packs per day. - Family history:: not pertinent. Screenin:40 [facility] ED Fall Risk Assessment (Adult) History of falling in the last 3 months, ar6 including since admission No falls in past 3 months (0 pts) Confusion or Disorientation No (0 pts) Intoxicated or Sedated No (0 pts) Impaired Gait No (0 pts) Mobility Assist Device Used No (0 pt) Altered Elimination No (0 pt) Score/Fall Risk Level 0 - 2 = Low Risk Oriented to surroundings, Maintained a safe environment, Educated pt \T\ family on fall prevention, incl call for assistance when getting out of bed, Hourly rounding (assess needs \T\ fall precautionary measures) done. Abuse screen: Denies threats or abuse. Denies injuries from another. Nutritional screening: No deficits noted. Tuberculosis screening: No symptoms or risk factors identified. Assessment: 16:40 Reassessment: see triage assessment. ar6 17:58 General: Appears in no apparent distress. comfortable, Behavior is calm, cooperative. ph Pain: Complains of pain in mid-sternal area. Neuro: Level of Consciousness is awake, alert, obeys commands, Oriented to person, place, time, situation. Cardiovascular: Capillary refill < 3 seconds in bilateral fingers Patient's skin is warm and dry. Cardiovascular: Reports chest pain, Denies lightheadedness, nausea, shortness of breath, Rhythm is sinus bradycardia. Respiratory: Airway is patent Respiratory effort is even, unlabored. GI: No signs and/or symptoms were reported involving the gastrointestinal system. Derm: Skin is pink, warm \T\ dry. 18:48 Reassessment: per Dr. Charles LUCIO potassium is verified ordered. ar6 Vital Signs: 16:30 BP 113 / 78; Pulse 62; Resp 18; Temp 98.2; Pulse Ox 100% on R/A; Weight 72.57 kg; ar6 Height 5 ft. 9 in. ; Pain 5/10; 16:37 BP 113 / 78; Pulse 62; Resp 18; Pulse Ox 100% ; ar6 17:58 BP 108 / 76; Pulse 58; Resp 18; Pulse Ox 98% on R/A; ph 18:46 BP 107 / 70; Pulse 61; Resp 18; Pulse Ox 99% on R/A; ar6 16:30 Body Mass Index 23.63 (72.57 kg, 175.26 cm) ar6 16:30 Pain Scale: Adult ar6 ED Course: 16:18 Patient arrived in ED. ph 16:19 Andre Armstrong MD is Attending Physician. rt 16:37 Triage completed. ar6 16:37 Arm band placed on right wrist. ar6 16:40 Patient has correct armband on for positive identification. Bed in low position. Call ar6 light in reach. Side rails up X2. [place] [employer] at bedside. Provided Education on: plan of care. Client placed on continuous cardiac and pulse oximetry monitoring. NIBP monitoring applied. Door closed. Moved to private room. Warm blanket given. 16:41 No provider procedures requiring assistance completed. ar6 17:19 Kathy Rajan, RN is Primary Nurse. ph 17:57 Basic Metabolic Panel Sent. ph 17:57 LFT's Sent. ph 17:58 XRAY Chest (1 view) In Process Unspecified. EDMS 17:58 Troponin HS Sent. ph 17:58 Initial lab(s) drawn, by me, sent to lab. EKG done, by ED staff, reviewed by Andre Armstrong MD. Inserted saline lock: 22 gauge in right antecubital area, using aseptic technique. Blood collected. Flushed with 10 mL NS. 18:07 Attending Physician role handed off by Andre Armstrong MD sp3 18:07 Mary Soto MD is Attending Physician. sp3 18:46 IV discontinued, intact, bleeding controlled, No redness/swelling at site. Pressure ar6 dressing applied. Administered Medications: 17:57 Drug: Ketorolac IM 15 mg IM once Route: IM; Site: right deltoid; ph 18:47 Follow up: Response: No adverse reaction ar6 18:46 Drug: Potassium Chloride PO Liquid 40 mEq PO once Route: PO; ar6 18:47 Follow up: Response: No adverse reaction ar6 Medication: 17:59 VIS not applicable for this client. ph Outcome: 18:32 Discharge ordered by . sp3 18:46 Discharged to [employer] Enforcement ar6 18:46 Condition: good 18:46 Discharge instructions given to patient, Instructed on discharge instructions, follow up and referral plans. Demonstrated understanding of instructions, follow-up care, 19:00 Patient left the ED. ph Signatures: Dispatcher [employer] Kathy Patel RN RN ph Mary Soto MD MD sp3 Andre Armstrong MD MD rt Shelby Teixeira RN RN ar6 Corrections: (The following items were deleted from the chart) 16:38 16:37 PMHx: Asthma; ar6 ar6
[2024-04-27] MEDS ORDERED: POTASSIUM CL SA 10 MEQ TAB PO ONE (18:42)
[2024-04-27] MEDS ORDERED: POTASSIUM 25 MEQ EFFERV TAB ONE (18:45)
--- NOTE | 2024-04-27 18:57 | RAD REPORT ---
EXAMINATION: ONE VIEW CHEST XR CLINICAL INDICATION: Male, 28 years old.,CHEST PAIN TECHNIQUE: Frontal chest projection is submitted. Examination is limited by patient positioning and t echnique. COMPARISON: 06/14/2020 FINDINGS: The lungs are mildly under inflated and clear. No pneumothorax or sizable effusion. The heart is nor mal in size. Mediastinal contours are unremarkable. IMPRESSION: No acute intrathoracic abnormalities.
[2024-04-27 19:34] VITALS: TEMP 98.2
[2024-04-27 19:46] VITALS: BP 107/70; O2SAT 99
--- NOTE | 2024-04-28 14:48 | EKG ---
Test Date: 2024-04-27 Test Time: 17:37:29 Technical Solutions Director: PH MEASUREMENT RESULTS: Intervals: Rate: 59 IN: 174 QRSD: 92 QT: 426 QTc: 421 [place]: P: 29 IN: 174 QRS: 11 T: 22 INTERPRETIVE STATEMENTS: Sinus bradycardia with marked sinus arrhythmia Otherwise normal ECG Compared to ECG 09/09/2017 09:30:09 Early repolarization no longer present Electronically Signed On 04-28-24 14:45:57 CDT by Ihsan Rojas
== END 2024-04-27 19:00 | disposition home or self-care (01) ==
LOC: ER 16:10
DX: R07.9 Chest pain, unspecified (principal); E87.6 Hypokalemia; F17.210 Nicotine dependence, cigarettes, uncomplicated
CPT/HCPCS: 36415; 71045; 80048; 80076; 84484; 85025; 93005

== ENCOUNTER 2024-06-11 13:28 | Emergency (ER) | payer OTHER ==
[2024-06-11 14:40] LABS: Absolute Eosinophils 0.2 K/uL (0-0.5); Absolute Lymphocytes (CBC) 1.7 K/uL (0.7-4.9); Absolute Monocytes 0.4 K/uL (0.1-1.3); Absolute Neutrophil 5.6 K/uL (1.8-8.0); Basophils % 0.2 % (0-1.3); Hematocrit 40.7 % (39.6-49.0); Hemoglobin 14.3 g/dL (13.6-17.9); Lymphocytes % 22.1 % (15.3-44.8); MCH 31.3 pg (27.0-35.0); MCHC 35.3 g/dL (32.0-36.0); MCV 88.6 fL (80-100); MPV 9.3 fL (7.6-11.3); Monocytes % 4.5 % (3.3-12.3); Neutrophils % 71.2 % (41.7-73.7); Nucleated Red Blood Cells % 0.1 % (0-0); Platelets 218 thou/uL (152-406); RBC Red Blood Cell Count 4.59 M/uL (4.33-5.43); Red Cell Distribution Width 12.6 % (12.1-15.2)
[2024-06-11 14:41] LABS: Barbiturates NEGATIVE (NEGATIVE); Benzodiazepines NEGATIVE (NEGATIVE); Cocaine NEGATIVE (NEGATIVE); METHAMPHETAM NEGATIVE (NEGATIVE); Methadone NEGATIVE (NEGATIVE); Opiates NEGATIVE (NEGATIVE); Phencyclidine NEGATIVE (NEGATIVE); THC Cannibis NEGATIVE (NEGATIVE)
--- NOTE | 2024-06-11 14:48 | RAD REPORT ---
EXAM: Chest Single View HISTORY: CHEST PAIN COMPARISON: 04/27/2024 FINDINGS: LUNGS/PLEURA: The lungs are clear. No pleural effusions or pneumothorax. No pulmonary edema. MEDIASTINUM: The mediastinal silhouette is within normal limits. CARDIAC: The cardiac silhouette is within normal limits. UPPER ABDOMEN: No significant abnormality. BONES: No acute fracture. LINES/TUBES/OTHER: N/A IMPRESSION: No evidence of acute cardiopulmonary disease.
[2024-06-11 14:50] LABS: Albumin 3.8 g/dL (3.4-5.0); Albumin/Globulin Ratio 1.2 (1.1-1.8); Bilirubin Direct 0.3 mg/dL (0-0.2); Bilirubin Indirect, Calculated 0.4 mg/dL (0.2-0.8); Bilirubin Total 0.7 mg/dL (0.2-1.0); Globulin 3.1 g/dL (2.3-3.5); Protein, Total 6.9 g/dL (6.4-8.2); Troponin High Sensitivity 8.6 pg/mL (<58.9)
[2024-06-11] MEDS ORDERED: NA CHLORIDE 0.9% 1,000 ML ONE (15:04)
[2024-06-11] MEDS ORDERED: Magnesium Sulfate 2gm IVPB 2 G/50 ML BAG IV ONE (15:04)
--- NOTE | 2024-06-11 15:36 | ER ---
Nurse's Notes [facility] Name: Chito Gibbs Age: 29 yrs Sex: Male : 1995 Arrival Date: 06/11/2024 Time: 13:28 Bed 16 Private MD: Diagnosis: Chest pain, unspecified;Hypokalemia;Hypomagnesemia Presentation: 06/11 13:43 Chief complaint: Patient states: chest pain upon inspiration since 0900 today, reports aa5 hx of Asthma and has been out of inhaler x 2 weeks. 13:43 Coronavirus screen: At this time, the client does not indicate any symptoms associated aa5 with coronavirus-19. Ebola Screen: Patient denies travel to an Ebola-affected area in the 21 days before illness onset. Initial Sepsis Screen: Does the patient meet any 2 criteria? No. Patient's initial sepsis screen is negative. Does the patient have a suspected source of infection? No. Patient's initial sepsis screen is negative. Risk Assessment: Do you want to hurt yourself or someone else? Patient reports no desire to harm self or others. Onset of symptoms was June 11, 2024. 13:43 Acuity: JIGAR 3 aa5 13:43 Method Of Arrival: Ambulatory aa5 Historical: - Allergies: 13:43 NKA; aa5 - PMHx: 13:43 Asthma; aa5 - Immunization history:: Adult Immunizations unknown. - Infectious Disease History:: Denies. - Social history:: Smoking status: Patient denies any tobacco usage or history of. Screenin:43 [facility] ED Fall Risk Assessment (Adult) History of falling in the last 3 months, tm6 including since admission No falls in past 3 months (0 pts) Confusion or Disorientation No (0 pts) Intoxicated or Sedated No (0 pts) Impaired Gait No (0 pts) Mobility Assist Device Used No (0 pt) Altered Elimination No (0 pt) Score/Fall Risk Level 0 - 2 = Low Risk Oriented to surroundings, Maintained a safe environment, Educated pt \T\ family on fall prevention, incl call for assistance when getting out of bed. Abuse screen: Denies threats or abuse. Denies injuries from another. Nutritional screening: No deficits noted. Tuberculosis screening: No symptoms or risk factors identified. Assessment: 13:43 General: Appears in no apparent distress. Behavior is calm, cooperative. Pain: tm6 Complains of pain in chest Pain does not radiate. Pain began 0900. Neuro: Level of Consciousness is awake, alert, obeys commands, Oriented to person, place, time, situation. Cardiovascular: Reports chest pain, Patient's skin is warm and dry. Respiratory: Airway is patent Respiratory effort is even, unlabored, Respiratory pattern is regular, symmetrical. GI: No signs and/or symptoms were reported involving the gastrointestinal system. Abdomen is flat, non-distended. : No signs and/or symptoms were reported regarding the genitourinary system. EENT: No signs and/or symptoms were reported regarding the EENT system. Derm: No signs and/or symptoms reported regarding the dermatologic system. Musculoskeletal: No signs and/or symptoms reported regarding the musculoskeletal system. Vital Signs: 13:43 BP 133 / 99; Pulse 71; Resp 18 S; Temp 97.5(O); Pulse Ox 97% on R/A; Weight 77.11 kg aa5 (R); Height 5 ft. 9 in. ; 15:36 BP 114 / 86; Pulse 56; Resp 18; Temp 97.5; Pulse Ox 100% on R/A; MAP 95 mmHg; Pain 0/10;tm6 13:43 Body Mass Index 25.10 (77.11 kg, 175.26 cm) aa5 15:36 Pain Scale: Adult tm6 ED Course: 13:43 Patient arrived in ED. aa5 13:43 Kathia Low FNP-C is [facility]. kb 13:43 Tramaine Jeff MD is Attending Physician. kb 13:43 Arm band placed on. aa5 13:43 Patient has correct armband on for positive identification. Bed in low position. Call tm6 light in reach. Side rails up X 1. Provided Education on: use of call srivastava. Client placed on continuous cardiac and pulse oximetry monitoring. NIBP monitoring applied. quality assurance monitor body on. Pulse ox on. NIBP on. Door closed. Noise minimized. Warm blanket given. Pillow given. PO fluids given. 13:43 No provider procedures requiring assistance completed. Patient maintains SpO2 tm6 saturation greater than 95% on room air. 13:45 Triage completed. aa5 14:06 Mike Olvera RN is Primary Nurse. tm6 14:15 EKG done, by ED staff, reviewed by Kathia RICK. tm6 14:24 Basic Metabolic Panel Sent. em1 14:24 CBC with Diff Sent. em1 14:24 D-Dimer Sent. em1 14:24 LFT's Sent. em1 14:24 Magnesium Sent. em1 14:24 NT PRO-BNP Sent. em1 14:24 Troponin HS Sent. em1 14:24 Initial lab(s) drawn, by ne, sent to lab. Inserted saline lock: 20 gauge in left em1 antecubital area, using aseptic technique. Blood collected. Flushed with 10 mL NS. 14:46 XRAY Chest (1 view) In Process Unspecified. EDMS 14:50 Patient requests food. kc6 15:52 IV discontinued, intact, bleeding controlled, No redness/swelling at site. Pressure tm6 dressing applied. Administered Medications: 15:35 Not Given (Patient Refused): ns 0.9% 1000 ml IV at 1000 ml once; to be given as a bolus tm6 over 60 minutes 15:35 Not Given (Patient Refused): magnesium sulfate2 grams IVPB once over 2 hrs tm6 15:50 Drug: Potassium Chloride PO 40 mEq PO once Route: PO; tm6 15:52 Follow up: Response: Medication administered at discharge. tm6 15:50 Drug: Magnesium Oxide PO 400 mg PO once; administer with meals Route: PO; tm6 15:52 Follow up: Response: Medication administered at discharge. tm6 Medication: 13:43 VIS not applicable for this client. tm6 Outcome: 15:36 Discharge ordered by MD. mon 15:52 Discharged to home ambulatory, tm6 15:52 Condition: stable 15:52 Discharge instructions given to patient, Instructed on discharge instructions, follow up and referral plans. Demonstrated understanding of instructions, follow-up care, 15:52 Patient left the ED. tm6 Signatures: Dispatcher [employer] EDRI Kathia Low FNP-C FNP-Osmani Solano em1 Ludivina Rubio, Mylene Duvall RN, RN RN kc6 Mike Olvera RN RN tm6
--- NOTE | 2024-06-11 15:36 | EDPHYS ---
Physician Documentation [facility] Name: Chito Gibbs Age: 29 yrs Sex: Male : 1995 Arrival Date: 06/11/2024 Time: 13:28 Bed 16 Private MD: ED Physician Tramaine Jeff HPI: 06/11 14:01 This 29 yrs old Black Male presents to ER via Ambulatory with complaints of Chest Pain kb - upon inspiration. 14:01 Pt is a 29 year old male who presents for pain to [facility] chest that started around kb 0900 this morning [place] in [facility]. Reports he has had similar pain in the past. Denies n/v, shortness of breath, palpitations. . Historical: - Allergies: 13:43 NKA; aa5 - PMHx: 13:43 Asthma; aa5 - Immunization history:: Adult Immunizations unknown. - Infectious Disease History:: Denies. - Social history:: Smoking status: Patient denies any tobacco usage or history of. ROS: 14:01 Constitutional: As per HPI kb Exam: 14:01 Constitutional: This is a well developed, well nourished patient who is awake, alert, kb and in no acute distress. Head/Face: Normocephalic, atraumatic. ENT: Moist Mucous membranes Cardiovascular: Regular rate Respiratory: Respirations even and unlabored. No increased work of breathing. Talking in full sentences Skin: Warm, dry with normal turgor. Normal color. MS/ Extremity: Pulses equal, no cyanosis. Neurovascular intact. Full, normal range of motion. Neuro: Awake and alert, GCS 15, oriented to person, place, time, and situation. 14:16 ECG was reviewed by the Attending Physician. kb Vital Signs: 13:43 BP 133 / 99; Pulse 71; Resp 18 S; Temp 97.5(O); Pulse Ox 97% on R/A; Weight 77.11 kg aa5 (R); Height 5 ft. 9 in. ; 15:36 BP 114 / 86; Pulse 56; Resp 18; Temp 97.5; Pulse Ox 100% on R/A; MAP 95 mmHg; Pain 0/10;tm6 13:43 Body Mass Index 25.10 (77.11 kg, 175.26 cm) aa5 15:36 Pain Scale: Adult tm6 MDM: 13:43 Medical Screening Exam initiated kb 14:01 Data reviewed: vital signs, nurses notes. kb 14:02 Historians other than the Patient: EMS: [facility]. kb 15:45 Differential diagnosis: arrhythmia, acute mi, abnormal electrolytes, asthma kb exacerbation. Counseling: I had a detailed discussion with the patient and/or guardian regarding the historical points, exam findings, and any diagnostic results supporting the discharge/admit diagnosis, lab results, radiology results, the need for outpatient follow up, a family practitioner, to return to the emergency department if symptoms worsen or persist or if there are any questions or concerns that arise at home. ED course: Pt does not want to wait for magnesium or IVF infusions. Educated on low magnesium and that it would be better to get the IV dose prior to leaving. Pt states he is feeling better and would just like to leave. Recommended daily vitamins. . 06/11 13:55 Order name: Basic Metabolic Panel; Complete Time: 15:00 kb 06/11 13:55 Order name: CBC with Diff; Complete Time: 14:43 kb 06/11 13:55 Order name: D-Dimer; Complete Time: 14:53 kb 06/11 13:55 Order name: LFT's; Complete Time: 15:00 kb 06/11 13:55 Order name: Magnesium; Complete Time: 15:00 kb 06/11 13:55 Order name: NT PRO-BNP; Complete Time: 15:00 kb 06/11 13:55 Order name: Troponin HS; Complete Time: 15:00 kb 06/11 13:55 Order name: UDS; Complete Time: 14:43 kb 06/11 13:55 Order name: XRAY Chest (1 view); Complete Time: 14:53 kb 06/11 13:55 Order name: Cardiac monitoring; Complete Time: 14:15 kb 06/11 13:55 Order name: EKG - Nurse/Tech; Complete Time: 14:15 kb 06/11 13:55 Order name: IV Saline Lock; Complete Time: 14:24 kb 06/11 13:55 Order name: Labs collected and sent; Complete Time: 14:24 kb 06/11 13:55 Order name: O2 Per Protocol; Complete Time: 14:15 kb 06/11 13:55 Order name: O2 Sat Monitoring; Complete Time: 14:15 kb EC:16 Rate is 55 beats/min. Rhythm is regular. QRS [place] is Normal. MN interval is normal at kb 148 msec. QRS interval is normal at 104 msec. QT interval is normal at 392 msec. Administered Medications: 15:35 Not Given (Patient Refused): ns 0.9% 1000 ml IV at 1000 ml once; to be given as a bolus tm6 over 60 minutes 15:35 Not Given (Patient Refused): magnesium sulfate2 grams IVPB once over 2 hrs tm6 15:50 Drug: Potassium Chloride PO 40 mEq PO once Route: PO; tm6 15:52 Follow up: Response: Medication administered at discharge. tm6 15:50 Drug: Magnesium Oxide PO 400 mg PO once; administer with meals Route: PO; tm6 15:52 Follow up: Response: Medication administered at discharge. tm6 Disposition Summary: 06/11/24 15:36 Discharge Ordered Notes: Location: Home kb Condition: Stable kb Diagnosis - Chest pain, unspecified kb - Hypokalemia kb - Hypomagnesemia kb Followup: kb - With: Emergency Department - When: As needed - Reason: Worsening of condition Followup: kb - With: Private Physician - When: 2 - 3 days - Reason: Recheck today's complaints, Continuance of care, Re-evaluation by your physician Discharge Instructions: - Discharge Summary Sheet kb - Hypomagnesemia kb - Nonspecific Chest Pain, Adult, Kark-iy-Irgm kb - Hypokalemia kb Forms: - Medication Reconciliation Form kb - Antibiotic Education kb - Prescription Opioid Use kb - Patient Portal Instructions kb - Leadership Thank You Letter kb Signatures: Dispatcher [employer] EDMD Kathia Low, BUILDING SURVEYOR-C BUILDING SURVEYOR-Ludivina Conner, RN RN aa5 Mike Olvera RN RN tm6 Corrections: (The following items were deleted from the chart) 13:56 13:56 BASIC METABOLIC PANEL+C.LAB.BRZ ordered. EDMS EDMS 13:56 13:56 CBC+H.LAB.BRZ ordered. EDMS EDMS 13:56 13:56 D-DIMER+COAG.LAB.BRZ ordered. EDMS EDMS 13:56 13:56 HEPATIC FUNCTION+C.LAB.BRZ ordered. EDMS EDMS 13:56 13:56 MAGNESIUM+C.LAB.BRZ ordered. EDMS EDMS 13:56 13:56 PROBNP+C.LAB.BRZ ordered. EDMS EDMS 13:56 13:56 Troponin High Sensitivity+C.LAB.BRZ ordered. EDMS EDMS 13:56 13:56 URINE DRUG SCREEN+UC.LAB.BRZ ordered. EDMS EDMS 13:56 13:56 Chest Single View+RAD.RAD.BRZ ordered. EDMS EDMS 14:53 14:01 Pt is a 29 year old male who presents for pain to center of chest that started kb around 0900 this morning. Reports he has had similar pain in the past. Denies n/v, shortness of breath, palpitations. . kb
[2024-06-11] MEDS ORDERED: POTASSIUM CL SA 10 MEQ TAB PO ONE (15:40)
[2024-06-11] MEDS ORDERED: MAGNESIUM OXIDE 400 MG TAB ONE (15:40)
[2024-06-11 16:27] VITALS: TEMP 97.5
[2024-06-11 16:28] VITALS: BP 133/99; O2SAT 97
== END 2024-06-11 15:52 | disposition home or self-care (01) ==
LOC: ER 13:28
DX: E87.6 Hypokalemia (principal); E83.42 Hypomagnesemia
CPT/HCPCS: 85025; 80048; 36415; 83735; 85379; 80076; 84484; 83880; 80307; 71045; 99284; J3475; J7030

== ENCOUNTER 2024-07-30 21:21 | Emergency (ER) | payer OTHER ==
--- OUTSIDE RECORDS SUMMARY | 2024-07-30 21:23 | XMS REPORT | Continuity of Care Document ---
Author Name Unknown Address [address] [place] [address] Tony. [address] [id number] [facility] [employer] Address [address] [place] [address] Tony. [address] [place] [address] Care Team Providers Care Bookkeeper Assistant Name Role Phone Ruth Barton Attending Clinician Unavailable Physician, No Primary or Family Admitting Clinic [place] Unavailable Payers Payer Name Policy Type Policy Number Effective Date Expirati on Date Source Allergies, Adverse Reactions, Alerts Allergy Name Allergy Type Status Severity Reaction(s) Onset Date Inactive Date Treating Clinician Comments Source No Known Allergie s DA Active U 08-13 00:00: 00 [facility] Encounters Start Date/Time End Date/Time Encounter Type Admission Type Attending Clinicians Care Facility Care Department Encounter ID Source 2022-08-13 19:10:00 2022-09-05 04:22:00 Emergency TR Ruth Barton [id number] 93 [facility]
--- NOTE | 2024-07-30 22:29 | RAD REPORT ---
EXAM: Chest Pa And Lat (2 Views) HISTORY: 29 years Male Cough;Congestion COMPARISON: 06/11/2024 FINDINGS: LUNGS/PLEURA: The lungs are clear. No pleural effusions or pneumothorax. No pulmonary edema. MEDIASTINUM: The mediastinal silhouette is within normal limits CARDIAC: The cardiac silhouette is within normal limits. UPPER ABDOMEN: No significant abnormality. BONES: No acute abnormality. LINES/TUBES/OTHER: N/A IMPRESSION: No evidence of acute cardiopulmonary disease.
[2024-07-30] MEDS ORDERED: ALBUTEROL 2.5 MG/3 ML NEB SOL ONE (23:48)
[2024-07-30] MEDS ORDERED: IPRATROPIUM BROM 0.5MG/2.5ML ONE (23:49)
[2024-07-30] MEDS ORDERED: IBUPROFEN 400 MG TAB ONE (23:49)
[2024-07-31 00:12] LABS: SARS-CoV-2 Antigen CONTROL BLUE LINE VIS/BG OK; SARS-CoV-2 Antigen Rapid Res Negative (Negative)
--- NOTE | 2024-07-31 00:24 | ER ---
Nurse's Notes [facility] Name: Chito Gibbs Age: 29 yrs Sex: Male : 1995 Arrival Date: 07/30/2024 Time: 21:21 Bed 6 Private MD: Diagnosis: Streptococcal pharyngitis Presentation: 07/30 21:55 Chief complaint: Patient states: c/o cough, chest pain r/t coughing, nausea, vomiting, al5 fever, sore throat, and pain with breathing x3-4 days. denies being around anyone sick. Coronavirus screen: cough unrelated to allergies, fever, nausea, sore throat, vomiting. Ebola Screen: No symptoms or risks identified at this time. Initial Sepsis Screen: Does the patient meet any 2 criteria? No. Patient's initial sepsis screen is negative. Does the patient have a suspected source of infection? No. Patient's initial sepsis screen is negative. Risk Assessment: Do you want to hurt yourself or someone else? Patient reports no desire to harm self or others. Onset of symptoms was July 26, 2024. 21:55 Method Of Arrival: Ambulatory al5 21:55 Acuity: JIGAR 4 al5 Triage Assessment: 21:57 General: Appears in no apparent distress. uncomfortable, Behavior is calm, cooperative. al5 Pain: Complains of pain in chest Pain currently is 7 out of 10 on a pain scale. EENT: No signs and/or symptoms were reported regarding the EENT system. Neuro: Level of Consciousness is awake, alert, obeys commands, Oriented to person, place, time, situation. Cardiovascular: Capillary refill < 3 seconds Patient's skin is warm and dry. Respiratory: Reports cough that is pain with respiration Airway is patent Respiratory effort is even, unlabored, Respiratory pattern is regular, symmetrical, Onset: The symptoms/episode began/occurred 3-4 days ago, the patient has mild shortness of breath. GI: Reports nausea, vomiting. : No signs and/or symptoms were reported regarding the genitourinary system. Derm: Skin is intact, is healthy with good turgor, Skin is pink, warm \T\ dry. normal. Musculoskeletal: No signs and/or symptoms reported regarding the musculoskeletal system. 07/31 00:39 Cardiovascular: Heart tones S1 S2 present Capillary refill < 3 seconds Patient's skin bm8 is warm and dry. Rhythm is sinus rhythm. Respiratory: Airway is patent Respiratory effort is even, unlabored, Respiratory pattern is regular, symmetrical, Denies shortness of breath at rest. Historical: - Allergies: 07/30 21:57 No Known Allergies; al5 - PMHx: 21:57 Asthma; al5 - PSHx: 21:57 None; al5 - Immunization history:: Adult Immunizations up to date. - Infectious Disease History:: Denies. - Social history:: Smoking status: Patient denies any tobacco usage or history of. Screenin:58 [facility] ED Fall Risk Assessment (Adult) History of falling in the last 3 months, al5 including since admission No falls in past 3 months (0 pts) Confusion or Disorientation No (0 pts) Intoxicated or Sedated No (0 pts) Impaired Gait No (0 pts) Mobility Assist Device Used No (0 pt) Altered Elimination No (0 pt) Score/Fall Risk Level 0 - 2 = Low Risk Oriented to surroundings, Maintained a safe environment, Hourly rounding (assess needs \T\ fall precautionary measures) done. Abuse screen: Denies threats or abuse. Denies injuries from another. Nutritional screening: No deficits noted. 21:58 Tuberculosis screening: No symptoms or risk factors identified. al5 Assessment: 21:57 Reassessment: see triage assessment. al5 21:57 Respiratory: Airway is patent Respiratory effort is even, unlabored, Respiratory al5 pattern is regular, symmetrical. 23:54 Reassessment: Patient appears in no apparent distress at this time. Patient and/or bm8 family updated on plan of care and expected duration. Pain level reassessed. Patient is alert, oriented x 3, equal unlabored respirations, skin warm/dry/pink. Patient denies pain at this time. General: Appears in no apparent distress. comfortable, Behavior is calm, cooperative, quiet. Pain: Denies pain. Neuro: No deficits noted. Level of Consciousness is awake, alert, obeys commands, Oriented to person, place, time, situation, Appropriate for age Assistant Clinical Nurse Manager are equal bilaterally Moves all extremities. Full function Speech is normal, Facial symmetry appears normal, Facial symmetry: tongue is midline. Cardiovascular: No deficits noted. Denies chest pain, Heart tones S1 S2 present Capillary refill < 3 seconds in bilateral fingers Patient's skin is warm and dry. Rhythm is sinus rhythm. Respiratory: Reports cough that is non-productive, dry, Airway is patent Respiratory effort is even, unlabored, Respiratory pattern is regular, symmetrical, Breath sounds with wheezes bilaterally. in right upper lobe, left upper lobe, left posterior upper lobe and right posterior upper lobe the patient has mild shortness of breath. GI: No deficits noted. No signs and/or symptoms were reported involving the gastrointestinal system. : No deficits noted. No signs and/or symptoms were reported regarding the genitourinary system. EENT: No deficits noted. No signs and/or symptoms were reported regarding the EENT system. Derm: No deficits noted. No signs and/or symptoms reported regarding the dermatologic system. Musculoskeletal: No deficits noted. No signs and/or symptoms reported regarding the musculoskeletal system. Vital Signs: 21:55 BP 126 / 86; Pulse 77; Resp 16; Temp 98.6; Pulse Ox 100% on R/A; Weight 81.65 kg; al5 Height 5 ft. 9 in. ; Pain 7/10; 23:54 BP 113 / 73; Pulse 75; Resp 20; Temp 98.6; Pulse Ox 95% on R/A; Pain 0/10; bm8 07/31 00:39 BP 126 / 80; Pulse 94; Resp 20; Temp 98; Pulse Ox 96% on R/A; Pain 0/10; bm8 07/30 21:55 Body Mass Index 26.58 (81.65 kg, 175.26 cm) al5 07/30 21:55 Pain Scale: Adult al5 23:54 Pain Scale: Adult bm8 07/31 00:39 Pain Scale: Adult bm8 Zana Coma Score: 07/30 23:54 Eye Response: spontaneous(4). Motor Response: obeys commands(6). Verbal Response: bm8 oriented(5). Total: 15. ED Course: 21:24 Patient arrived in ED. am2 21:39 Nicole Landin PA-C is PHCP. sb4 21:39 Rupesh Angel MD is Attending Physician. sb4 21:52 Roula Regan RN is Primary Nurse. al5 21:57 Triage completed. al5 21:59 Arm band placed on right wrist. Patient placed in waiting room, in view of staff al5 members, on pulse oximetry, Patient notified of wait time. 21:59 Patient has correct armband on for positive identification. Provided Education on: plan al5 of care. 21:59 No provider procedures requiring assistance completed. al5 22:26 Chest Pa And Lat (2 Views) XRAY In Process Unspecified. EDMS 23:26 Strep Sent. lg3 23:26 Flu Sent. lg3 23:26 SARS RAPID Sent. lg3 23:37 Strep Sent. kmf 23:37 Flu Sent. kmf 23:37 SARS RAPID Sent. kmf 23:46 Demetrio Shah, RN is Primary Nurse. bm8 23:54 Client placed on continuous cardiac and pulse oximetry monitoring. NIBP monitoring bm8 applied. Pulse ox on. NIBP on. Door closed. Noise minimized. Lights dimmed. Pillow given. Verbal reassurance given. Head of bed elevated. 23:54 Initial Neb Treatment Given as ordered Patient was instructed and evaluated on bm8 procedure Patient tolerated procedure well without adverse effect. Oxygen administered via a nebulizer mask. Response to oxygen therapy: symptoms improved. 07/31 00:48 Patient did not have IV access during this emergency room visit. bm8 Administered Medications: 07/30 23:53 Drug: Ibuprofen PO 800 mg PO once Route: PO; bm8 07/31 00:48 Follow up: Response: No adverse reaction bm8 07/30 23:53 Drug: DuoNeb Nebulize (3:1) (2.5 mg - 0.5 mg) 3 ml Nebulizer once Route: Nebulizer; bm8 07/31 00:47 Follow up: Response: No adverse reaction bm8 00:33 Drug: Amoxicillin-Clavulanate PO 875 mg PO once Route: PO; bm8 00:47 Follow up: Response: Medication administered at discharge. bm8 Medication: 07/30 21:57 VIS not applicable for this client. al5 Outcome: 07/31 00:23 Discharge ordered by . sb4 00:48 Discharged to home ambulatory, bm8 00:48 Condition: stable 00:48 Discharge instructions given to patient, Instructed on discharge instructions, follow up and referral plans. no drinking with medication, no driving heavy equipment, medication usage, safety practices, Demonstrated understanding of instructions, follow-up care, medications, Prescriptions given X 1, 00:50 Patient left the ED. bm8 Signatures: Dispatcher [employer] Roula Ernandez Zena Escobar RN RN lg3 Nicole Landin PACalixto PA-C sb4 Livia Henderson [facility] Demetrio Shah RN RN bm8 Roula Regan, RN RN al5 Corrections: (The following items were deleted from the chart) 07/30 21:57 21:57 Allergies: NKA; al5 al5 23:27 23:26 COVID swab sent to lab. Flu and/or RSV swab sent to lab. lg3 lg3
--- NOTE | 2024-07-31 00:24 | EDPHYS ---
Physician Documentation [facility] Name: Chito Gibbs Age: 29 yrs Sex: Male : 1995 Arrival Date: 07/30/2024 Time: 21:21 Bed 6 Private MD: ED Physician Rupesh Angel HPI: 07/31 00:51 This 29 yrs old Black Male presents to ER via Ambulatory with complaints of Breathing sb4 Difficulty, Cough, Doesn't Feel Right. 00:51 patient reports feeling poorly for 2 days now- cough, sob, malaise, sore throat, fever. sb4 denies any sick contacts. has history of asthma, uses an inhaler intermittently. does endorse some nausea, and vomiting. Historical: - Allergies: 07/30 21:57 No Known Allergies; al5 - PMHx: 21:57 Asthma; al5 - PSHx: 21:57 None; al5 - Immunization history:: Adult Immunizations up to date. - Infectious Disease History:: Denies. - Social history:: Smoking status: Patient denies any tobacco usage or history of. ROS: 02 00:51 Abdomen/GI: Negative for abdominal pain, nausea, vomiting, diarrhea, and constipation, sb4 Constitutional: Positive for fatigue, malaise, ENT: Positive for sore throat, Respiratory: Positive for cough, Abdomen/GI: Positive for All other systems are negative, 00:55 Constitutional: Positive for fever, sb4 Exam: 00:56 Head/Face: Normocephalic, atraumatic. Eyes: Extra-ocular motions intact. Periorbital sb4 areas with no swelling, redness, or edema. Cardiovascular: Regular rate and rhythm with a normal S1 and S2. Respiratory: No increased work of breathing, no retractions or nasal flaring. Abdomen/GI: Soft, non-tender, no distension. Skin: Warm, dry with normal turgor. Normal color with no rashes, no lesions, and no evidence of cellulitis. 00:56 Constitutional: The patient appears alert, awake, obviously ill, 00:56 ENT: Posterior pharynx: Tonsils: bilaterally enlarged, with erythema, no exudate, 00:56 Respiratory: Breath sounds: wheezing: expiratory is scattered, Vital Signs: 07/30 21:55 BP 126 / 86; Pulse 77; Resp 16; Temp 98.6; Pulse Ox 100% on R/A; Weight 81.65 kg; al5 Height 5 ft. 9 in. ; Pain 7/10; 23:54 BP 113 / 73; Pulse 75; Resp 20; Temp 98.6; Pulse Ox 95% on R/A; Pain 0/10; bm8 07/31 00:39 BP 126 / 80; Pulse 94; Resp 20; Temp 98; Pulse Ox 96% on R/A; Pain 0/10; bm8 07/30 21:55 Body Mass Index 26.58 (81.65 kg, 175.26 cm) al5 07/30 21:55 Pain Scale: Adult al5 23:54 Pain Scale: Adult bm8 07/31 00:39 Pain Scale: Adult bm8 [place] Coma Score: 07/30 23:54 Eye Response: spontaneous(4). Motor Response: obeys commands(6). Verbal Response: bm8 oriented(5). Total: 15. MDM: 22:03 Medical Screening Exam initiated sb4 07/31 00:57 Data reviewed: vital signs, nurses notes, lab test result(s), radiologic studies, and sb4 as a result, I will discharge patient. Counseling: I had a detailed discussion with the patient and/or guardian regarding the historical points, exam findings, and any diagnostic results supporting the discharge/admit diagnosis, lab results, radiology results, the need for outpatient follow up, for definitive care, to return to the emergency department if symptoms worsen or persist or if there are any questions or concerns that arise at home. 07/30 22:03 Order name: SARS RAPID; Complete Time: 00:12 sb4 07/30 22:03 Order name: Flu; Complete Time: 00:13 sb4 07/30 22:03 Order name: Strep; Complete Time: 00:12 sb4 07/30 22:03 Order name: Chest Pa And Lat (2 Views) XRAY; Complete Time: 22:29 sb4 Administered Medications: 07/30 23:53 Drug: Ibuprofen PO 800 mg PO once Route: PO; 8 07/31 00:48 Follow up: Response: No adverse reaction 8 07/30 23:53 Drug: DuoNeb Nebulize (3:1) (2.5 mg - 0.5 mg) 3 ml Nebulizer once Route: Nebulizer; /01 00:47 Follow up: Response: No adverse reaction bm8 00:33 Drug: Amoxicillin-Clavulanate PO 875 mg PO once Route: PO; bm8 00:47 Follow up: Response: Medication administered at discharge. bm8 Disposition Summary: 07/31/24 00:23 Discharge Ordered Notes: Location: Home sb4 Problem: new sb4 Symptoms: have improved sb4 Condition: Stable sb4 Diagnosis - Streptococcal pharyngitis sb4 Followup: sb4 - With: Private Physician - When: 1 week - Reason: Recheck today's complaints, Re-evaluation by your physician Discharge Instructions: - Discharge Summary Sheet sb4 - Strep Throat, Adult, [id number] sb4 Forms: - Antibiotic Education sb4 - Patient Portal Instructions sb4 - Leadership Thank You Letter sb4 Prescriptions: - Amoxicillin 875 mg Oral Tablet - take 1 tablet ORAL route every 12 hours for 10 days; 20 tablet; Refills: 0, sb4 Product Selection Permitted Signatures: Dispatcher [employer] EDNJ Nicole Landin PA-C PA-C sb4 Demetrio Shah, RN RN bm8 Roula Regan RN RN al5 Corrections: (The following items were deleted from the chart) 07/30 21:57 21:57 Allergies: NKA; al5 al5 22:04 22:04 SARS-COV-2 Antigen Rapid+I.LAB.BRZ ordered. [facility] 22:04 22:04 Influenza Screen (A \T\ B)+BA.LAB.BRZ ordered. [facility] 22:04 22:04 Group A Streptococcus Rapid Sc+BA.LAB.BRZ ordered. [facility] 07/31 00:55 00:51 patient reports feeling poorly for 2 days now- cough, sob, malaise, sore throat. sb4 denies any sick contacts. has history of asthma, uses an inhaler intermittently. no n/v/d, fever, or chills. sb4 00:56 00:51 patient reports feeling poorly for 2 days now- cough, sob, malaise, sore throat. sb4 denies any sick contacts. has history of asthma, uses an inhaler intermittently. does endorse some nausea, and vomiting. denies fever, or chills. sb4
[2024-07-31] MEDS ORDERED: AMOX/K CLAV 875 MG TAB ONE (00:27)
[2024-07-31 01:07] VITALS: BP 126/80; TEMP 98; O2SAT 96
== END 2024-07-31 00:50 | disposition home or self-care (01) ==
LOC: ER 21:21
DX: J02.0 Streptococcal pharyngitis (principal); Z11.52 Encounter for screening for COVID-19
CPT/HCPCS: 36415; 87081; 87804 ×2; 71046; 94640; 99285; 87811; J7613; J7644

== ENCOUNTER 2024-09-23 20:33 | Emergency (ER) | payer OTHER ==
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
[2024-09-23] MEDS ORDERED: ALBUTEROL 2.5 MG/3 ML NEB SOL ONE (21:37)
[2024-09-23] MEDS ORDERED: METHYLPREDNISOLONE 125 MG INJ ONE (21:38)
[2024-09-23] MEDS ORDERED: KETOROLAC 30 MG/ML INJ ONE (21:38)
[2024-09-23] MEDS ORDERED: NA CHLORIDE 0.9% 1,000 ML ONE (21:38)
[2024-09-23 21:41] LABS: Absolute Eosinophils 0.3 K/uL (0-0.5); Absolute Lymphocytes (CBC) 1.8 K/uL (0.7-4.9); Absolute Monocytes 0.5 K/uL (0.1-1.3); Absolute Neutrophil 5.2 K/uL (1.8-8.0); Basophils % 0.5 % (0-1.3); Eosinophils % 3.2 % (0-4.4); Hematocrit 37.5 % (39.6-49.0); Hemoglobin 13.3 g/dL (13.6-17.9); Lymphocytes % 23.6 % (15.3-44.8); MCH 31.8 pg (27.0-35.0); MCHC 35.5 g/dL (32.0-36.0); MCV 89.5 fL (80-100); MPV 8.8 fL (7.6-11.3); Monocytes % 6.4 % (3.3-12.3); Neutrophils % 66.3 % (41.7-73.7); Nucleated Red Blood Cells % 0.1 % (0-0); Platelets 206 thou/uL (152-406); RBC Red Blood Cell Count 4.19 M/uL (4.33-5.43); Red Cell Distribution Width 13.6 % (12.1-15.2)
--- NOTE | 2024-09-23 21:56 | RAD REPORT ---
Procedure: Chest Single View HISTORY: Chest pain COMPARISON: June 2024 FINDINGS: The lungs appear clear of acute infiltrate. No significant pleural effusion noted. The heart is normal size. IMPRESSION: No acute abnormality is displayed.
[2024-09-23 22:04] LABS: Albumin 3.5 g/dL (3.4-5.0); Albumin/Globulin Ratio 1.1 (1.1-1.8); Bilirubin Direct 0.2 mg/dL (0-0.2); Bilirubin Indirect, Calculated 0.3 mg/dL (0.2-0.8); Bilirubin Total 0.5 mg/dL (0.2-1.0); Globulin 3.3 g/dL (2.3-3.5); Magnesium 1.3 mg/dL (1.6-2.4); Protein, Total 6.8 g/dL (6.4-8.2); Troponin High Sensitivity 11.2 pg/mL (<58.9)
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
--- NOTE | 2024-09-24 02:21 | ER ---
Nurse's Notes [facility] Name: Chito Gibbs Age: 29 yrs Sex: Male : 1995 Arrival Date: 09/23/2024 Time: 20:33 Bed 2 Private MD: Diagnosis: Chest pain, unspecified;Hypomagnesemia;Unspecified asthma with (acute) exacerbation Presentation: 09/23 20:34 Chief complaint: Patient states: Patient is in custody of [facility], officer at bedside. 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 Pain is midsternal, sharp and radiates to his epigastric area. No associated symptoms with pain. Coronavirus screen: Vaccine status: Patient reports being unvaccinated. Ebola Screen: No symptoms or risks identified at this time. Initial Sepsis Screen: Does the patient meet any 2 criteria? No. Patient's initial sepsis screen is negative. Does the patient have a suspected source of infection? No. Patient's initial sepsis screen is negative. Risk Assessment: Do you want to hurt yourself or someone else? Patient reports no desire to harm self or others. Onset of symptoms was September 23, 2024. 20:34 Method Of Arrival: Law Enforcement: Xiomara BRADLEY [facility] 20:34 Acuity: JIGAR 3 me1 Triage Assessment: 20:39 General: Appears in no apparent distress. Behavior is calm, cooperative, appropriate me1 for age. Pain: Complains of pain in chest Pain radiates to epigastric area Pain currently is 8 out of 10 on a pain scale. Quality of pain is described as sharp, Pain began suddenly, Is intermittent. EENT: No signs and/or symptoms were reported regarding the EENT system. Neuro: Level of Consciousness is awake, alert, obeys commands, Oriented to person, place, time, situation, Appropriate for age. Cardiovascular: Patient's skin is warm and dry. Cardiovascular: Reports chest pain. Respiratory: Airway is patent Trachea midline Respiratory effort is even, unlabored, Respiratory pattern is regular, symmetrical. GI: No signs and/or symptoms were reported involving the gastrointestinal system. : No signs and/or symptoms were reported regarding the genitourinary system. Derm: Skin is intact, is healthy with good turgor, Skin is pink, warm \T\ dry. Musculoskeletal: No signs and/or symptoms reported regarding the musculoskeletal system. Historical: - Allergies: 20:39 No Known Drug Allergies; me1 - PMHx: 20:39 Asthma; me1 - PSHx: 20:39 None; me1 - Immunization history:: Adult Immunizations unknown. - Infectious Disease History:: Denies. - Social history:: Smoking status: Reported history of juuling and/or vaping. Screenin:41 [facility] ED Fall Risk Assessment (Adult) History of falling in the last 3 months, me1 including since admission No falls in past 3 months (0 pts) Confusion or Disorientation No (0 pts) Intoxicated or Sedated No (0 pts) Impaired Gait No (0 pts) Mobility Assist Device Used No (0 pt) Altered Elimination No (0 pt) Score/Fall Risk Level 0 - 2 = Low Risk Maintained a safe environment, Provided non-skid footwear, Hourly rounding (assess needs \T\ fall precautionary measures) done. Abuse screen: Denies threats or abuse. Nutritional screening: No deficits noted. Tuberculosis screening: No symptoms or risk factors identified. Assessment: 20:41 General: See triage assessment. Pain: Complains of pain in chest. me1 21:11 General: Appears comfortable, Behavior is calm, cooperative. Pain: Complains of pain in ha1 epigastric area Pain currently is 6 out of 10 on a pain scale. Quality of pain is described as burning. Neuro: Level of Consciousness is awake, alert, obeys commands, Oriented to person, place, time, situation. Cardiovascular: Capillary refill < 3 seconds Patient's skin is warm and dry. Rhythm is sinus rhythm. 22:20 Reassessment: Patient and/or family updated on plan of care and expected duration. Pain ha1 level reassessed. Patient is alert, oriented x 3, equal unlabored respirations, skin warm/dry/pink. 23:10 Reassessment: Patient and/or family updated on plan of care and expected duration. Pain ha1 level reassessed. Patient is alert, oriented x 3, equal unlabored respirations, skin warm/dry/pink. Patient states feeling better. Patient states symptoms have improved. 09/24 02:12 Reassessment: Patient appears in no apparent distress at this time. Patient and/or bm8 family updated on plan of care and expected duration. Pain level reassessed. Patient is alert, oriented x 3, equal unlabored respirations, skin warm/dry/pink. pt is resting with eyes closed breathing is even unlabored with symmetrical rise and fall of chest Patient denies pain at this time. Patient states feeling better. Patient states symptoms have improved. Vital Signs: 09/23 20:34 BP 121 / 82; Pulse 67; Resp 15; Temp 98.4; Pulse Ox 99% ; Weight 81.65 kg; Height 5 ft. me1 9 in. ; Pain 8/10; 21:12 BP 131 / 99; Pulse 69; Resp 17 S; Pulse Ox 99% on R/A; ha1 23:15 BP 116 / 78; Pulse 64; Resp 18 S; Pulse Ox 100% on R/A; ha1 09/24 00:30 BP 104 / 69; Pulse 63; Resp 17 S; Pulse Ox 99% on R/A; ha1 02:12 BP 104 / 68; Pulse 70; Resp 18; Temp 98.4; Pulse Ox 98% ; Pain 0/10; bm8 09/23 20:34 Body Mass Index 26.58 (81.65 kg, 175.26 cm) me1 09/23 20:34 Pain Scale: Adult me1 02:12 Pain Scale: Adult bm8 Zana Coma Score: 02:12 Eye Response: spontaneous(4). Motor Response: obeys commands(6). Verbal Response: bm8 oriented(5). Total: 15. ED Course: 09/23 20:34 Patient arrived in ED. me1 20:35 [facility] 20:35 Tramaine Jeff MD is Attending Physician. cp 20:39 Triage completed. me1 20:39 Arm band placed on Patient placed in an exam room. me1 20:41 Patient has correct armband on for positive identification. Bed in low position. Call [facility] light in reach. Side rails up X2. Provided Education on: POC. Verbalized understanding.. Client placed on continuous cardiac and pulse oximetry monitoring. NIBP monitoring applied. groundwater monitoring technician on. Pulse ox on. NIBP on. 20:41 No provider procedures requiring assistance completed. Patient maintains SpO2 me1 saturation greater than 95% on room air. 20:51 Aspen Peacock, ELVI is Primary Nurse. me1 20:51 EKG done, by ED staff, reviewed by Tramaine NG. me1 20:54 EKG done, by ED staff, reviewed by Tramaine NG. oe 21:33 Inserted saline lock: 22 gauge in right forearm, using aseptic technique. Blood oe collected. Flushed with 10 mL NS. 21:34 Basic Metabolic Panel Sent. oe 21:34 CBC with Diff Sent. oe 21:34 LFT's Sent. oe 21:34 Magnesium Sent. oe 21:34 Troponin HS Sent. oe 21:47 XRAY Chest (1 view) In Process Unspecified. EDMS 09/24 01:03 US Abdomen Limited In Process Unspecified. EDMS 02:29 IV discontinued, intact, bleeding controlled, No redness/swelling at site. Pressure bm8 dressing applied. Administered Medications: 09/23 21:40 Drug: MethylPrednisoLONE IVP 125 mg IVP once Route: IVP; Site: right forearm; ha1 22:00 Follow up: Response: No adverse reaction; Marked relief of symptoms ha1 21:44 Drug: Ketorolac IVP 15 mg IVP once Route: IVP; Site: right forearm; ha1 22:05 Follow up: Response: No adverse reaction; Marked relief of symptoms; Pain is decreased ha1 21:46 Drug: NS 0.9% IV 1000 ml IV at 1000 ml once; to be given as a bolus over 60 minutes ha1 Route: IV; Rate: 1000 ml; Site: right forearm; 09/24 00:49 Follow up: Response: No adverse reaction; IV Status: Completed infusion; IV Intake: ha1 1000ml 09/23 21:46 Drug: Albuterol Inhalation 2.5 mg Inhalation once Route: Inhalation; ha1 22:00 Follow up: Response: No adverse reaction; Marked relief of symptoms ha1 09/24 02:27 Drug: Magnesium Oxide PO 1200 mg PO once; administer with meals Route: PO; bm8 02:29 Follow up: Response: No adverse reaction bm8 Medication: 09/23 20:41 VIS not applicable for this client. me1 Intake: 09/24 00:49 IV: 1000ml; Total: 1000ml. ha1 Outcome: 02:20 Discharge ordered by . cp 02:29 Discharged to Law Enforcement bm8 02:29 Condition: stable 02:29 Discharge instructions given to patient, police, Instructed on discharge instructions, follow up and referral plans. medication usage, safety practices, Demonstrated understanding of instructions, follow-up care, medications, Prescriptions given X 3, 02:30 Patient left the ED. bm8 Signatures: Dispatcher [employer] EDMS Tramaine Watts PA PA cp Espinosa, Orlando oe Ayala, Heidy, RN RN 1 Aspen Peacock RN RN me1 Demetrio Shah RN RN bm8 Corrections: (The following items were deleted from the chart) 09/23 20:39 20:39 PSHx: Unable to Obtain; wy1 [facility]
[2024-09-24] MEDS ORDERED: MAGNESIUM OXIDE 400 MG TAB ONE (02:23)
[2024-09-24 02:42] VITALS: TEMP 98.4
[2024-09-24 03:00] VITALS: BP 104/68; O2SAT 98
--- NOTE | 2024-09-24 07:10 | RAD REPORT ---
CLINICAL HISTORY: Elevated liver enzymes. COMPARISON: None. TECHNIQUE: US ABDOMEN LIMITED 09/23/2024 11:17 PM CDT FINDINGS: Liver is slightly nodular in contour. Gallbladder is normally distended without wall thickening, gall stones or pericholecystic fluid. Common bile duct measures 3 mm. IMPRESSION: Slightly nodular hepatic contour. Electronically signed by: Anthony Guevara MD 09/24/2024 01:39 AM CDT RP Due to temporary technical issues with the PACS/[employer]ot[employer] reporting system, reports are being fei d by the in-house radiologist without review as a courtesy to ensure prompt reporting the interpreting radiologist is fully responsible for the content of the report. Transcribed Date/Time: 09/24/2024 7:10 AM
--- NOTE | 2024-09-27 11:31 | EKG ---
Test Date: 2024-09-23 Test Time: 20:39:46 Junior Programmer Analyst: JENELLE MEASUREMENT RESULTS: Intervals: Rate: 66 MD: 166 QRSD: 100 QT: 396 QTc: 415 [place]: P: 39 MD: 166 QRS: 41 T: 47 INTERPRETIVE STATEMENTS: Normal sinus rhythm with sinus arrhythmia Normal ECG Compared to ECG 06/11/2024 14:11:31 Sinus bradycardia no longer present Electronically Signed On 09-27-24 11:23:22 CDT by Moi Arnold
== END 2024-09-24 02:30 | disposition home or self-care (01) ==
LOC: ER 20:33
DX: J45.901 Unspecified asthma with (acute) exacerbation (principal); E83.42 Hypomagnesemia
CPT/HCPCS: 96361; 93005; 85025; 80048; 36415; 83735; 82550; 80076; 84484 ×2; 71045; 76705; 96375; 96374; 99285; J7613; J2919; J7030